=== PATIENT | female | born 1965 | race Caucasian/White ===

== ENCOUNTER → 2019-02-01 09:06 | Outpatient (CLI) | payer MEDICARE, MEDICAID, SELFPAY ==
--- NOTE | 2019-02-01 09:14 | XR_ITS ---
XR knee LT 4V HISTORY: Pain ITS.REASON: 4 views WB ORDERING PHYSICIAN: Carlene Jacobo MD PATIENT AGE: 53 years COMPARISON: 12/24/2018 FINDINGS: No fracture or dislocation. No lytic or blastic change. Normal mineralization. No significant arthritic changes evident. No other significant findings. There is some mild prominence of the bony trabecular pattern of the patella. This is nonspecific and not significant change. IMPRESSION: No acute finding with no significant change
== END ==
PROVIDERS: PCP Family Medicine; Visit Provider Orthopaedic Surgery
DX: M25.562 Pain in left knee (principal)
CPT/HCPCS: 73564

== ENCOUNTER 2019-02-02 13:56 | Emergency (ER) | payer MEDICARE, MEDICAID, SELFPAY ==
[2019-02-02 14:06] VITALS: BP 141/89; PULSE 86; RESP 15; TEMP 37.6; O2SAT 100; BMI 48.2
--- NOTE | 2019-02-02 14:10 | CT_ITS ---
CT abdomen pelvis w con CLINICAL INDICATION: Nausea, vomiting, diarrhea with abdominal pain ITS.REASON: abd pain ORDERING PHYSICIAN: Fina Parada MD PATIENT AGE: 53 years COMPARISON: 11/03/2018 TECHNIQUE: Axial images obtained with sagittal and coronal reformats. All CT scans at the facility use one or more dose reduction, viz: automated exposure control, ma/kV adjustment per patient size (including targeted exams where dose is matched to indication, i.e. head), or iterative reconstruction technique. PROCEDURE: Oral Contrast: None IV Contrast: 75 mL's Optiray 350. FINDINGS: Lower thorax: No acute finding Postcholecystectomy changes. Hepatic steatosis. Spleen, adrenal glands, pancreas, and kidneys show no acute finding. There are a few small peripancreatic lymph nodes and periportal lymph nodes which may be slightly more prominent. Small retroperitoneal nodes are also present not significantly changed. It is a 2 cm left renal cyst. No intestinal obstruction or free air. There is fluid-filled cecum and ascending colon. There is mild amount of fluid in the ilium with some mild mucosal thickening of the distal aspect of the ilium suggesting enterocolitis. No evidence of diverticulitis. No acute bony anomalies. IMPRESSION: 1. Suspect enterocolitis 2. Small. Pancreatic and periportal lymph nodes very slightly more prominent. Continued follow-up recommended
[2019-02-02 14:20] LABS: Basophils # 0.1 K/mm3 (0-0.2); Basophils % 0.7 % (0.1-2.0); Eosinophils # 0.4 K/mm3 (0.0-0.4); Eosinophils % 4.2 % (0.1-12.0); Hematocrit 44.4 % (37.0-47.0); Hemoglobin 15.1 g/dL (12.2-16.2); Lymphocytes # 3.3 K/mm3 (0.7-4.5); Lymphocytes % 37.3 % (10-50); Mean Corpuscular HGB Conc 34.1 g/dL (31.8-35.4); Mean Corpuscular Hemoglobin 29.7 pg (27.0-31.2); Mean Corpuscular Volume 87.3 fl (81-99); Mean Platelet Volume 8.3 fl (7.4-10.4); Monocytes # 0.5 K/mm3 (0.1-1.0); Monocytes % 5.3 % (1.7-9.3); Neutrophils # 4.7 K/mm3 (1.8-7.8); Neutrophils % 52.5 % (37.0-80.0); Platelet Count 242 K/mm3 (142-424); Red Blood Count 5.09 M/mm3 (4.20-5.40); Red Cell Distribution Width 12.8 % (11.5-17.5)
[2019-02-02 14:31] LABS: Alanine Aminotransferase 32 U/L (12-78); Albumin Level 3.7 gm/dL (3.4-5.0); Albumin/Globulin Ratio 0.8 (1.1-1.8); Alkaline Phosphatase 126 U/L (46-116); Amylase 36 U/L (25-115); Anion Gap 17.4 mEq/L (5-15); Aspartate Amino Transferase 21 U/L (15-37); Bilirubin,Total 0.4 mg/dL (0.2-1.0); Blood Urea Nitrogen 6 mg/dL (7-18); Calcium 9.6 mg/dL (8.5-10.1); Carbon Dioxide 24 mmol/L (21.0-32.0); Chloride 98 mmol/L (98-107); Creatinine Clearance Estimated 55 mL/min (50-200); Creatinine,Serum 1.04 mg/dL (0.55-1.02); Estimated Glomerular Filt Rate 56 ml/min (>60); GFR (African American) 67 ML/MIN (>60); Globulin 4.4 gm/dl (1.3-3.2); Glucose 370 mg/dL (74-106); Lipase 178 u/L (73-393); Magnesium 1.5 mg/dL (1.4-2.2); Potassium 4.4 mmoL/L (3.5-5.1); Sodium 135 mmol/L (136-145); Total Protein,Serum 8.1 gm/dL (6.4-8.2); Troponin I < 0.02 ng/ml (0.00-0.06)
--- NOTE | 2019-02-02 14:45 | HMH.EDNVD ---
ED Disposition Clinical Impression: Nausea and vomiting, Dehydration, Weakness, Hypertension, Diabetes, Tobacco abuse disorder, Uncontrolled diabetes mellitus Disposition: Home, Self-Care Condition on Discharge: Fair Instructions: DI for Diarrhea and Traveler's Diarrhea -- Adult, DI for Diarrhea and Traveler's Diarrhea -- Child, DI for Nausea -- Adult, DI for Nausea -- Child Additional Instructions: 1- zofran as needed. 2- drink plenty of gotrade today. 3- BRAT diet tomorrow. 4- follow up with pcp on Monday02/04/19. 5- to return if not better or any new symptoms. Prescriptions: Ondansetron [Zofran 4mg ODT] 4 mg PO Q8HP PRN #6 tab.rapdis PRN Reason: Nausea Referrals: Yue Mix [Primary Care Provider] - - Critical Care Critical Care Time: No Attestation: On 02/02/19, the high probability of a clinically significant, sudden or life threatening deterioration of the following system(s) required my full and direct attention, intervention and personal management. The time I documented below is in addition to time spent performing reported procedures but includes the following listed in this critical care notation. Medical Decision Making - [place] Inquiry Pt receiving controlled substance: No [place] was queried for this patient: No Vital Signs: 02/02/19 14:06 02/02/19 14:57 02/02/19 15:53 Temperature 99.7 F H Temperature Source Oral Pulse Rate [Right Brachial] 86 82 84 Respiratory Rate 15 Blood Pressure [Right Arm] 141/89 H 127/82 131/79 Blood Pressure Mean [Right Arm] 106 97 96 Blood Pressure Source [Right Arm] Automatic Cuff Blood Pressure Position [Right Arm] Sitting 02 Sat by Pulse Oximetry 100 95 97 Oxygen Delivery Method Room Air - Lab Data Lab Results 02/02/19 14:06: WBC 9.0, RBC 5.09, Hgb 15.1, Hct 44.4, MCV 87.3, MCH 29.7, MCHC 34.1, RDW 12.8, Plt Count 242, MPV 8.3, Neut % (Auto) 52.5, Lymph % (Auto) 37.3, [place] % (Auto) 5.3, Eos % (Auto) 4.2, Baso % (Auto) 0.7, Neut # (Auto) 4.7, Lymph # (Auto) 3.3, [place] # (Auto) 0.5, Eos # (Auto) 0.4, Baso # (Auto) 0.1 02/02/19 14:06: Sodium 135 L, Potassium 4.4, Chloride 98, Carbon Dioxide 24, Anion Gap 17.4 H, BUN 6 L, Creatinine 1.04 H, Estimated Creat Clear 55, Estimated GFR 56 L, Est GFR ( Amer) 67, Glucose 370 H, Calcium 9.6, Magnesium 1.5, Total Bilirubin 0.4, AST 21, ALT 32, Alkaline Phosphatase 126 H, Troponin I < 0.02, Total Protein 8.1, Albumin 3.7, Globulin 4.4 H, Albumin/Globulin Ratio 0.8 L, Amylase 36, Lipase 178 02/02/19 14:06: Magnesium 1.5 Result diagrams: 02/02/19 14:06 02/02/19 14:06 Orders (Tests/Meds): ED MEDICATIONS Generic Name Dose Route Start Last Admin Trade Name Freq PRN Reason Stop Dose Admin Insulin Human Regular 5 unit 02/02/19 16:18 Humulin R Insulin 100 Units/Ml 10ml Vial SQ 02/02/19 16:19 ONCE ONE Discontinued Medications Generic Name Dose Route Start Last Admin Trade Name Freq PRN Reason Stop Dose Admin Famotidine 20 mg 02/02/19 14:44 02/02/19 15:03 Pepcid 20mg/2ml Vial IV 02/02/19 14:45 20 mg ONCE ONE Administration Sodium Chloride 1,000 mls @ 999 mls/hr 02/02/19 15:15 02/02/19 15:42 Sod Chlor 0.9% 1000ml Bag IV 02/02/19 16:15 999 mls/hr .Q1H1M [place] Administration Ioversol 75 ml 02/02/19 15:21 02/02/19 15:22 Rad-Optiray 350 100ml Vial IV 02/02/19 15:22 75 ml ONCE ONE Administration Protocol Morphine Sulfate 2 mg 02/02/19 14:44 02/02/19 15:03 Morphine 2mg/Ml Syringe IV 02/02/19 14:45 2 mg ONCE ONE Administration Ondansetron HCl 4 mg 02/02/19 14:44 06/15/19 15:03 Zofran 4mg/2ml Vial IV 02/02/19 14:45 4 mg ONCE ONE Administration Sodium Chloride 10 ml 02/02/19 15:21 02/02/19 15:22 Rad-Saline Flush 10ml Syringe IV 02/02/19 15:22 10 ml ONCE ONE Administration ORDERS Category Date Time Status Urinalysis and Microscopic Stat Lab 02/02/19 14:10 Ordered - CT Data CT Scan: [place]
--- NOTE | 2019-02-02 14:48 | ED_ITS ---
ED Disposition Clinical Impression: Nausea and vomiting, Dehydration, Weakness, Hypertension, Diabetes, Tobacco abuse disorder, Uncontrolled diabetes mellitus Disposition: Home, Self-Care Condition on Discharge: Fair Instructions: DI for Diarrhea and Traveler's Diarrhea -- Adult, DI for Diarrhea and Traveler's Diarrhea -- Child, DI for Nausea -- Adult, DI for Nausea -- Child Additional Instructions: 1- zofran as needed. 2- drink plenty of gotrade today. 3- BRAT diet tomorrow. 4- follow up with pcp on Monday02/04/19. 5- to return if not better or any new symptoms. Prescriptions: Ondansetron [Zofran 4mg ODT] 4 mg PO Q8HP PRN #6 tab.rapdis PRN Reason: Nausea Referrals: Yue Mix [Primary Care Provider] - - Critical Care Critical Care Time: No Attestation: On 02/02/19, the high probability of a clinically significant, sudden or life threatening deterioration of the following system(s) required my full and direct attention, intervention and personal management. The time I documented below is in addition to time spent performing reported procedures but includes the following listed in this critical care notation. Medical Decision Making - [place] Inquiry Pt receiving controlled substance: No [place] was queried for this patient: No Vital Signs: 02/02/19 14:06 02/02/19 14:57 02/02/19 15:53 Temperature 99.7 F H Temperature Source Oral Pulse Rate [Right Brachial] 86 82 84 Respiratory Rate 15 Blood Pressure [Right Arm] 141/89 H 127/82 131/79 Blood Pressure Mean [Right Arm] 106 97 96 Blood Pressure Source [Right Arm] Automatic Cuff Blood Pressure Position [Right Arm] Sitting 02 Sat by Pulse Oximetry 100 95 97 Oxygen Delivery Method Room Air - Lab Data Lab Results 02/02/19 14:06: WBC 9.0, RBC 5.09, Hgb 15.1, Hct 44.4, MCV 87.3, MCH 29.7, MCHC 34.1, RDW 12.8, Plt Count 242, MPV 8.3, Neut % (Auto) 52.5, Lymph % (Auto) 37.3, [place] % (Auto) 5.3, Eos % (Auto) 4.2, Baso % (Auto) 0.7, Neut # (Auto) 4.7, Lymph # (Auto) 3.3, [place] # (Auto) 0.5, Eos # (Auto) 0.4, Baso # (Auto) 0.1 02/02/19 14:06: Sodium 135 L, Potassium 4.4, Chloride 98, Carbon Dioxide 24, Anion Gap 17.4 H, BUN 6 L, Creatinine 1.04 H, Estimated Creat Clear 55, Estimated GFR 56 L, Est GFR ( Amer) 67, Glucose 370 H, Calcium 9.6, Magnesium 1.5, Total Bilirubin 0.4, AST 21, ALT 32, Alkaline Phosphatase 126 H, Troponin I < 0.02, Total Protein 8.1, Albumin 3.7, Globulin 4.4 H, Albumin/Globulin Ratio 0.8 L, Amylase 36, Lipase 178 02/02/19 14:06: Magnesium 1.5 Result diagrams: 02/02/19 14:06 02/02/19 14:06 Orders (Tests/Meds): ED MEDICATIONS Generic Name Dose Route Start Last Admin Trade Name Freq PRN Reason Stop Dose Admin Insulin Human Regular 5 unit 02/02/19 16:18 Humulin R Insulin 100 Units/Ml 10ml Vial SQ 02/02/19 16:19 ONCE ONE Discontinued Medications Generic Name Dose Route Start Last Admin Trade Name Freq PRN Reason Stop Dose Admin Famotidine 20 mg 02/02/19 14:44 02/02/19 15:03 Pepcid 20mg/2ml Vial IV 02/02/19 14:45 20 mg ONCE ONE Administration Sodium Chloride 1,000 mls @ 999 mls/hr 02/02/19 15:15 02/02/19 15:42 Sod Chlor 0.
[2019-02-02 14:57] VITALS: BP 127/82; PULSE 82; O2SAT 95
[2019-02-02 15:18] LABS: Magnesium 1.5 mg/dL (1.4-2.2)
[2019-02-02 15:53] VITALS: BP 131/79; PULSE 84; O2SAT 97
[2019-02-02 16:25] VITALS: BP 110/73; PULSE 84; O2SAT 96
[2019-02-02 16:56] VITALS: BP 140/75; PULSE 84; RESP 17; TEMP 36.8; O2SAT 97
== END 2019-02-02 16:57 | disposition home or self-care (01) ==
PROVIDERS: Emergency Provider Emergency Medicine; PCP Family Medicine
DX: E86.0 Dehydration (principal); R11.2 Nausea with vomiting, unspecified; I10 Essential (primary) hypertension; E11.65 Type 2 diabetes mellitus with hyperglycemia; Z79.84 Long term (current) use of oral hypoglycemic drugs; I25.10 Atherosclerotic heart disease of native coronary artery without angina pectoris; K21.9 Gastro-esophageal reflux disease without esophagitis; R01.1 Cardiac murmur, unspecified; E78.5 Hyperlipidemia, unspecified
CPT/HCPCS: 74177; 80053; 82150; 83690; 83735; 84484; 85025; 93005; 96365; 96375; 99283; J2405; Q9967

== ENCOUNTER 2020-08-27 18:47 | Emergency (ER) | payer MEDICARE, MEDICAID, SELFPAY ==
[2020-08-27 18:50] VITALS: BP 118/71; PULSE 81; RESP 17; TEMP 36.9; O2SAT 97; BMI 31.9
--- NOTE | 2020-08-27 19:43 | HMH.EDGENADL ---
ED Disposition Condition on Discharge: Good - Critical Care Critical Care Time: No <RamonCristopher cross - Last Filed: 08/27/20 20:03> <Duran Arguello - Last Filed: 08/27/20 21:49> Clinical Impression: Cervical dysphagia, Hoarseness, S/P thyroidectomy Disposition: Home, Self-Care Instructions: DI for Acute Pain -- Adult Additional Instructions: will see ent in am Referrals: PCP,No [Non-Staff] - Attestation: On 08/27/20, the high probability of a clinically significant, sudden or life threatening deterioration of the following system(s) required my full and direct attention, intervention and personal management. The time I documented below is in addition to time spent performing reported procedures but includes the following listed in this critical care notation. Medical Decision Making - [place] Inquiry Pt receiving controlled substance: No <Cristopher Sanchez - Last Filed: 08/27/20 20:03> - Lab Data Lab results reviewed: Yes: I reviewed the patient's lab results. Result diagrams: 08/27/20 20:02 08/27/20 20:02 - CT Data CT Scan: Other (neck) Time Received: 21:[address] Reviewed: Yes: I have viewed the radiologist's interpretation Preliminary Findings: Abnormal (see report ) <Duran Arguello - Last Filed: 08/27/20 21:49> Vital Signs: 08/27/20 18:50 Temperature 98.4 F Temperature Source Oral Pulse Rate [Left Radial] 81 Respiratory Rate 17 Blood Pressure [Right Arm] 118/71 Blood Pressure Mean [Right Arm] 86 Blood Pressure Source [Right Arm] Automatic Cuff Blood Pressure Position [Right Arm] Sitting 02 Sat by Pulse Oximetry 97 Oxygen Delivery Method Room Air - Lab Data Lab Results 08/27/20 20:02: WBC 9.6, RBC 5.30, Hgb 14.9, Hct 46.5, MCV 87.7, MCH 28.1, MCHC 32.1, RDW 15.5, Plt Count 193, MPV 9.2, Neut % (Auto) 52.8, Lymph % (Auto) 37.6, [place] % (Auto) 6.0, Eos % (Auto) 2.4, Baso % (Auto) 1.2, Neut # (Auto) 5.1, Lymph # (Auto) 3.6, [place] # (Auto) 0.6, Eos # (Auto) 0.2, Baso # (Auto) 0.1 08/27/20 20:02: Sodium 141, Potassium 3.7, Chloride 102, Carbon Dioxide 31 H, Anion Gap 11.7, BUN 12, Creatinine 0.80, Estimated Creat Clear 108, Estimated GFR 75, Est GFR ( Amer) 91, Glucose 175 H, Calcium 10.5 H 08/27/20 20:02: ESR 23 08/27/20 20:02: TSH 0.96, Thyroxine (T4) 8.4 Orders (Tests/Meds): ED MEDICATIONS Generic Name Dose Route Start Last Admin Trade Name Freq PRN Reason Stop Dose Admin Ceftriaxone Sodium 1 gm/ 50 mls @ 100 mls/hr 08/27/20 21:35 08/27/20 21:37 Sodium Chloride IV 08/27/20 22:04 100 mls/hr ONCE ONE Administration Protocol Discontinued Medications Generic Name Dose Route Start Last Admin Trade Name Freq PRN Reason Stop Dose Admin Iopamidol 75 ml 08/27/20 21:19 08/27/20 21:20 Iopamidol-370 (76%);100ml Bottle IV 08/27/20 21:20 75 ml ONCE ONE Administration Methylprednisolone Sodium Succinate 125 mg 08/27/20 21:35 08/27/20 21:37 Methylprednisolone Sod Succ 125mg Vial IV 08/27/20 21:36 125 mg ONCE ONE Administration Sodium Chloride 10 ml 08/27/20 21:19 08/27/20 21:20 Sodium Chloride 0.9% 10ml Syr (Rad Only) IV 08/27/20 21:20 10 ml ONCE ONE Administration ORDERS Category Date Time Status CT soft tissue neck w con Stat Cat Scan 08/27/20 20:02 Taken Medical Decision Narrative: 8:00 PM: At shift change, I have discussed the patient with Dr. Arguello, who will assume care of the patient at this time. I have discussed all clinical information including history, physical and diagnostic study results. Preliminary diagnoses based on information available at this point have been recorded by me. Controlled substance administration and critical care statement are also preliminary, as of the time of handoff. (Cristopher Sanchez) has appt in am with ent and will send copies of xrays (Duran Arguello) General Adult HPI - General Mode of Arrival: Ambulatory Limitations: No Limitations Description of Symptoms (Recal
--- NOTE | 2020-08-27 20:02 | CT_ITS ---
PROCEDURE: CT SOFT TISSUE NECK W CON CLINICAL HISTORY: cervical dysphagia and hoarseness for 6 mo COMPARISON: No exams were available for comparison TECHNIQUE: Oral Contrast: None IV Contrast: 75 mL Isovue 370 Axial images obtained with sagittal and coronal reformats. All CT scans at the facility use one or more dose reduction, viz: automated exposure control, ma/kV adjustment per patient size (including targeted exams where dose is matched to indication, i.e. head), or iterative reconstruction technique. FINDINGS: No cervical mass or adenopathy. No abnormal fluid collection. Status post left-sided thyroidectomy. The epiglottis and glottic region have an unremarkable appearance as does the nasopharyngeal area and pharynx. Lung apices are clear. There has been prior anterior cervical disc fusion at C5-C6. There are mild atheromatous changes of the right carotid bulb and [id number] atheromatous changes of the left carotid bulb with moderate stenosis on the left. Lung apices are clear with mild centrilobular emphysematous change. IMPRESSION: 1. Status post left thyroidectomy 2. 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 3. Status post anterior cervical disc fusion C5-C6 Dictated by: Daniel Fox MD 08/28/2020 06:31 Daniel Fox MD in [facility] 08/28/2020 06:31
[2020-08-27 20:10] LABS: Basophils # 0.1 K/mm3 (0-0.2); Basophils % 1.2 % (0.1-2.0); Eosinophils # 0.2 K/mm3 (0.0-0.4); Eosinophils % 2.4 % (0.1-12.0); Hematocrit 46.5 % (37.0-47.0); Hemoglobin 14.9 g/dL (12.2-16.2); Lymphocytes # 3.6 K/mm3 (0.7-4.5); Lymphocytes % 37.6 % (10-50); Mean Corpuscular HGB Conc 32.1 g/dL (31.8-35.4); Mean Corpuscular Hemoglobin 28.1 pg (27.0-31.2); Mean Corpuscular Volume 87.7 fl (81-99); Mean Platelet Volume 9.2 fl (7.4-10.4); Monocytes # 0.6 K/mm3 (0.1-1.0); Neutrophils # 5.1 K/mm3 (1.8-7.8); Neutrophils % 52.8 % (37.0-80.0); Platelet Count 193 K/mm3 (142-424); Red Cell Distribution Width 15.5 % (11.5-17.5); White Blood Count 9.6 K/mm3 (4.8-10.8)
[2020-08-27 20:12] LABS: Chloride 102 mmol/L (98-107); Potassium 3.7 mmoL/L (3.5-5.1); Sodium 141 mmol/L (136-145)
[2020-08-27 20:15] LABS: Anion Gap 11.7 mEq/L (5-15); Blood Urea Nitrogen 12 mg/dl (7-17); Carbon Dioxide 31 mmol/L (22.0-30.0); Creatinine Clearance Estimated 108 mL/min (50-200); Estimated Glomerular Filt Rate 75 ml/min (>60); GFR (African American) 91 ML/MIN (>60)
[2020-08-27 20:16] LABS: Calcium 10.5 mg/dl (8.4-10.2); Glucose 175 mg/dl (74-100)
[2020-08-27 20:49] LABS: T4 (Thyroxine) 8.4 ug/dl (5.53-11.0)
[2020-08-27 20:56] LABS: Erythrocyte Sedimentation Rate 23 mm/hr (0-30)
[2020-08-27 21:02] LABS: Thyroid Stimulating Hormone 0.96 uIU/mL (0.465-4.68)
[2020-08-27 21:54] VITALS: BP 122/68; PULSE 75; RESP 16; TEMP 36.7; O2SAT 97
== END 2020-08-27 21:56 | disposition home or self-care (01) ==
PROVIDERS: Emergency Medicine; Emergency Provider Emergency Medicine; PCP Family Medicine
DX: R13.19 Other dysphagia (principal); I25.10 Atherosclerotic heart disease of native coronary artery without angina pectoris; K21.9 Gastro-esophageal reflux disease without esophagitis; E78.5 Hyperlipidemia, unspecified; I10 Essential (primary) hypertension; M79.7 Fibromyalgia; F17.210 Nicotine dependence, cigarettes, uncomplicated; J44.9 Chronic obstructive pulmonary disease, unspecified; E11.9 Type 2 diabetes mellitus without complications; Z79.899 Other long term (current) drug therapy; Z88.8 Allergy status to other drugs, medicaments and biological substances
CPT/HCPCS: 70491; 80048; 84436; 84443; 85025; 85651; 96374; 96375; 99282; Q9967

== ENCOUNTER 2020-09-21 13:50 | Emergency (ER) | payer MEDICARE, MEDICAID, SELFPAY ==
--- NOTE | 2020-09-21 13:47 | ECG_ITS ---
APPROVED REPORT Exam: Resting ECG HR:93 bpm ECG Measurements Heart Rate 93 AXES NV 152 P 76 QRSd 76 QRS 46 QT 362 T 44 QTc 450 Conclusion Normal sinus rhythm Normal ECG Electronically signed by : Juan J Wynn, 09/22/2020 21:09:21
[2020-09-21 13:50] VITALS: BP 131/72; PULSE 92; RESP 20; TEMP 37.3; O2SAT 96; BMI 31.7
[2020-09-21 13:51] VITALS: BMI 31.7
--- NOTE | 2020-09-21 13:51 | XR_ITS ---
PROCEDURE: XR CHEST PORTABLE CLINICAL HISTORY: chest pain COMPARISON: CR CXR CHEST(2 VIEWS-NOT PORTABLE) from 11/05/2016 CR [id number] XR chest portable from 12/04/2017 FINDINGS: The cardiomediastinal silhouette and pulmonary vascularity are within normal limits. The lungs are clear without infiltrates, suspicious nodules, or pleural effusions. A bone plate present in the lower cervical spine IMPRESSION: No acute findings. Dictated by: Daniel Fox MD 09/21/2020 14:24 Daniel Fox MD in [facility] 09/21/2020 14:24
[2020-09-21 14:09] LABS: Chloride 97 mmol/L (98-107); Sodium 137 mmol/L (136-145)
[2020-09-21 14:10] LABS: Potassium 3.8 mmoL/L (3.5-5.1)
[2020-09-21 14:13] LABS: Anion Gap 13.8 mEq/L (5-15); Blood Urea Nitrogen 13 mg/dl (7-17); Calcium 10.3 mg/dl (8.4-10.2); Carbon Dioxide 30 mmol/L (22.0-30.0); Creatinine Clearance Estimated 96 mL/min (50-200); Estimated Glomerular Filt Rate 65 ml/min (>60); GFR (African American) 79 ML/MIN (>60); Glucose 293 mg/dl (74-100)
[2020-09-21 14:25] VITALS: BP 131/94; PULSE 94; RESP 18; O2SAT 93
--- NOTE | 2020-09-21 14:27 | HMH.EDCP ---
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 Return to the emergency department for any acute new concerns, persistent shortness of breath. - Critical Care Critical Care Time: No Attestation: On 09/21/20, the high probability of a clinically significant, sudden or life threatening deterioration of the following system(s) required my full and direct attention, intervention and personal management. The time I documented below is in addition to time spent performing reported procedures but includes the following listed in this critical care notation. Medical Decision Making - Medical Records Medical records reviewed: Yes: I reviewed the patient's medical records. - [place] Inquiry Pt receiving controlled substance: No Vital Signs: 09/21/20 13:50 09/21/20 14:25 Temperature 99.1 F Temperature Source Oral Pulse Rate [Left Radial] 92 H 94 H Respiratory Rate 20 18 Blood Pressure [Right Arm] 131/72 131/94 H Blood Pressure Mean [Right Arm] 91 106 Blood Pressure Source [Right Arm] Automatic Cuff Automatic Cuff Blood Pressure Position [Right Arm] Sitting Sitting 02 Sat by Pulse Oximetry 96 93 L Oxygen Delivery Method Room Air Room Air - Lab Data Lab results reviewed: Yes: I reviewed the patient's lab results. Lab Results 09/21/20 13:50: Sodium 137, Potassium 3.8, Chloride 97 L, Carbon Dioxide 30, Anion Gap 13.8, BUN 13, Creatinine 0.90, Estimated Creat Clear 96, Estimated GFR 65, Est GFR ( Amer) 79, Glucose 293 H, Calcium 10.3 H, Troponin I < 0.01 09/21/20 13:50: WBC 10.3, RBC 5.35, Hgb 15.2, Hct 47.3 H, MCV 88.5, MCH 28.4, MCHC 32.1, RDW 15.2, Plt Count 220, MPV 10.2, Neut % (Auto) 61.0, Lymph % (Auto) 31.5, [place] % (Auto) 5.4, Eos % (Auto) 1.3, Baso % (Auto) 0.7, Neut # (Auto) 6.3, Lymph # (Auto) 3.3, [place] # (Auto) 0.6, Eos # (Auto) 0.1, Baso # (Auto) 0.1 Result diagrams: 09/21/20 13:50 09/21/20 13:50 Orders (Tests/Meds): ED MEDICATIONS Discontinued Medications Generic Name Dose Route Start Last Admin Trade Name Elin PRN Reason Stop Dose Admin Aspirin 243 mg 09/21/20 13:52 09/21/20 14:08 Aspirin 81mg Chewable Tablet PO 09/21/20 13:53 243 mg ONCE ONE Administration ORDERS Category Date Time Status Troponin I Q3H Lab 09/21/20 17:00 Ordered Troponin I Q3H Lab 09/21/20 20:00 Ordered - Radiology Data #1 Image(s): Chest Image Reviewed: Yes I reviewed the patient's radiology image Preliminary Findings: Normal/NAD - ECG Data Tracing #1 EKG at 1347 shows normal sinus rhythm with a rate of 93. No acute ST segment elevation or depression. No hyperacute T waves. Normal intervals. EKG interpreted by me. - ZIGGY Score for Non-Stemi Age of Patient: 50-59 years old Heart Rate: 90-109 bpm Systolic Blood Pressure: 120-139 mmhg Serum Creatinine: 0.80-1.19 mg/dl CHF [place] Class: I-No CHF Other Risk Factors: None Non-Stemi Risk Score: 97 Medical Decision Narrative: This is a 54-year-old female with recent cardiac catheter the last several days with no stentable coronary artery disease. Chest x-ray shows no acute process. No pneumothorax, widened mediastinum, florid pulmonary edema or pneumonia. She has had chest pain for 2 days now and still has a negative troponin, very unlikely acute coronary syndrome. She has intermittent chest pain whenever she bends over or stands up, but this seems more likely related to a dyspepsia etiology rather than cardiac or pulmonary, especially in the setting of reassuring vital signs and recent cardiac cath. Currently she is resting comfortably on reevaluation. Advised to follow-up with cardiology within the next 1 to 2 days for reevaluation. Discharged home. Chest Pain HPI - General Chief Complaint: Chest Pain S
[2020-09-21 14:30] VITALS: BP 131/94; PULSE 94; RESP 18; O2SAT 92
[2020-09-21 14:32] LABS: Troponin I < 0.01 ng/ml (0.00-0.034)
[2020-09-21 14:49] LABS: Basophils # 0.1 K/mm3 (0-0.2); Basophils % 0.7 % (0.1-2.0); Eosinophils # 0.1 K/mm3 (0.0-0.4); Eosinophils % 1.3 % (0.1-12.0); Hematocrit 47.3 % (37.0-47.0); Hemoglobin 15.2 g/dL (12.2-16.2); Lymphocytes # 3.3 K/mm3 (0.7-4.5); Lymphocytes % 31.5 % (10-50); Mean Corpuscular HGB Conc 32.1 g/dL (31.8-35.4); Mean Corpuscular Hemoglobin 28.4 pg (27.0-31.2); Mean Corpuscular Volume 88.5 fl (81-99); Mean Platelet Volume 10.2 fl (7.4-10.4); Monocytes # 0.6 K/mm3 (0.1-1.0); Monocytes % 5.4 % (1.7-9.3); Neutrophils # 6.3 K/mm3 (1.8-7.8); Platelet Count 220 K/mm3 (142-424); Red Blood Count 5.35 M/mm3 (4.20-5.40); Red Cell Distribution Width 15.2 % (11.5-17.5); White Blood Count 10.3 K/mm3 (4.8-10.8)
[2020-09-21 15:00] VITALS: BP 123/80; PULSE 94; RESP 18; O2SAT 91
[2020-09-21 15:20] VITALS: BP 123/80; PULSE 94; RESP 20; TEMP 37.3; O2SAT 92
== END 2020-09-21 15:20 | disposition home or self-care (01) ==
PROVIDERS: Emergency Provider Emergency Medicine; PCP Family Medicine
DX: R07.89 Other chest pain (principal); R06.02 Shortness of breath; I10 Essential (primary) hypertension; E78.5 Hyperlipidemia, unspecified; M79.7 Fibromyalgia; F17.210 Nicotine dependence, cigarettes, uncomplicated; J44.9 Chronic obstructive pulmonary disease, unspecified; I25.10 Atherosclerotic heart disease of native coronary artery without angina pectoris; E11.65 Type 2 diabetes mellitus with hyperglycemia; K21.9 Gastro-esophageal reflux disease without esophagitis; Z79.899 Other long term (current) drug therapy
CPT/HCPCS: 71045; 80048; 84484; 85025; 93005; 99283

== ENCOUNTER 2021-02-23 11:50 | Emergency (ER) | payer MEDICARE, MEDICAID, SELFPAY ==
[2021-02-23 12:01] VITALS: BP 111/70; PULSE 76; RESP 18; TEMP 36.7; O2SAT 96; BMI 31.4
--- NOTE | 2021-02-23 12:11 | CT_ITS ---
PROCEDURE: CT ABDOMEN PELVIS W CON CLINICAL INDICATION: constipation, abd bloating COMPARISON: CT ABDPELW CT abdomen pelvis w con from 02/02/2019 TECHNIQUE: IV Contrast: 75ML Isovue 370 Oral Contrast None Axial images obtained with sagittal and coronal reformats. All CT scans at the facility use one or more dose reduction, viz: automated exposure control, ma/kV adjustment per patient size (including targeted exams where dose is matched to indication, i.e. head), or iterative reconstruction technique. FINDINGS: LOWER THORAX: No acute finding ABDOMEN & PELVIS: The liver, spleen, pancreas, adrenal glands, and kidneys show no acute finding. No intestinal obstruction or free air. No evidence of appendicitis or diverticulitis. No pelvic mass, abnormal fluid collection, or focal inflammatory change of the pelvis. No acute bony anomalies. IMPRESSION: Dictated by: Daniel Fox MD 02/23/2021 13:11 Daniel Fox MD in [facility] 02/23/2021 13:11
--- NOTE | 2021-02-23 12:13 | PC.NURSE ---
ER gave verbal order for CT scan for pt
--- NOTE | 2021-02-23 12:27 | HMH.ITSTN ---
at 12:27pm labs were not back. pending for ct abd/pelvis
[2021-02-23 12:34] LABS: Chloride 105 mmol/L (98-107); Sodium 140 mmol/L (136-145)
[2021-02-23 12:35] LABS: Potassium 3.3 mmoL/L (3.5-5.1)
[2021-02-23 12:37] LABS: Alanine Aminotransferase 27 U/L (12-78); Albumin Level 4.4 g/dl (3.5-5.0); Albumin/Globulin Ratio 1.3 (1.1-1.8); Alkaline Phosphatase 91 U/L (38-126); Anion Gap 14.3 mEq/L (5-15); Aspartate Amino Transferase 37 U/L (14-36); Bilirubin,Total 0.5 mg/dl (0.2-1.3); Blood Urea Nitrogen 14 mg/dl (7-17); Calcium 8.8 mg/dl (8.4-10.2); Carbon Dioxide 24 mmol/L (22.0-30.0); Creatinine Clearance Estimated 94 mL/min (50-200); Estimated Glomerular Filt Rate 65 ml/min (>60); GFR (African American) 79 ML/MIN (>60); Globulin 3.5 g/dL (1.3-3.2); Glucose 176 mg/dl (74-100); Total Protein,Serum 7.9 g/dl (6.3-8.2)
--- NOTE | 2021-02-23 13:18 | HMH.EDGENADL ---
ED Disposition Clinical Impression: Chronic constipation Irritable bowel syndrome Qualifiers: Irritable bowel syndrome type: with constipation Qualified Code(s): K58.1 - Irritable bowel syndrome with constipation Disposition: Home, Self-Care Condition on Discharge: Good Additional Instructions: Follow-up with your demo coordinator to get your medications refilled and for further care. Referrals: Provider,Referral, [Primary Care Provider] - - Critical Care Critical Care Time: No Attestation: On 02/23/21, the high probability of a clinically significant, sudden or life threatening deterioration of the following system(s) required my full and direct attention, intervention and personal management. The time I documented below is in addition to time spent performing reported procedures but includes the following listed in this critical care notation. Medical Decision Making - [place] Inquiry Pt receiving controlled substance: No [place] was queried for this patient: Yes Vital Signs: 02/23/21 12:01 Temperature 98.0 F Temperature Source Oral Pulse Rate [Right Radial] 76 Respiratory Rate 18 Blood Pressure [Right Arm] 111/70 Blood Pressure Mean [Right Arm] 83 Blood Pressure Source [Right Arm] Automatic Cuff Blood Pressure Position [Right Arm] Sitting 02 Sat by Pulse Oximetry 96 Oxygen Delivery Method Room Air - Lab Data Lab Results 02/23/21 12:20: Sodium 140, Potassium 3.3 L, Chloride 105, Carbon Dioxide 24, Anion Gap 14.3, BUN 14, Creatinine 0.90, Estimated Creat Clear 94, Estimated GFR 65, Est GFR ( Amer) 79, Glucose 176 H, Calcium 8.8, Total Bilirubin 0.5, AST 37 H, ALT 27, Alkaline Phosphatase 91, Total Protein 7.9, Albumin 4.4, Globulin 3.5 H, Albumin/Globulin Ratio 1.3 02/23/21 12:20: WBC 9.0, RBC 5.06, Hgb 13.3, Hct 41.7, MCV 82.4, MCH 26.3 L, MCHC 31.9, RDW 16.6, Plt Count 170, MPV 9.2, Neut % (Auto) 56.9, Lymph % (Auto) 33.8, [place] % (Auto) 5.8, Eos % (Auto) 2.7, Baso % (Auto) 0.8, Neut # (Auto) 5.1, Lymph # (Auto) 3.0, [place] # (Auto) 0.5, Eos # (Auto) 0.2, Baso # (Auto) 0.1 02/23/21 12:20: Lipase 123 02/23/21 13:28: Urine Color Yellow, Urine Appearance Clear, Urine pH 6.0, Ur Specific [place] <= 1.005, Urine Protein Negative, Urine Glucose (UA) 3+, Urine Ketones Negative, Urine Blood Negative, Urine Nitrate Negative, Urine Bilirubin Negative, Urine Urobilinogen 0.2, Ur Leukocyte Esterase Negative Result diagrams: 02/23/21 12:20 02/23/21 12:20 Orders (Tests/Meds): ED MEDICATIONS Discontinued Medications Generic Name Dose Route Start Last Admin Trade Name Freq PRN Reason Stop Dose Admin Iopamidol 75 ml 02/23/21 13:04 02/23/21 13:05 Iopamidol-370 (76%);100ml Bottle IV 02/23/21 13:05 75 ml ONCE ONE Administration ORDERS Category Date Time Status UA [Urinalysis and Microscopic] Stat Lab 02/23/21 13:28 Results - CT Data CT Scan: Abdomen, Pelvis Time Received: 13:[address] Reviewed: Yes: I discussed the CT results w/the radiologist Findings Narrative: Scattered small lymph nodes in the epigastrium, has had previously in the retroperitoneum. Air-fluid levels questionable enteritis versus early ileus. No distention of bowel. No signs of bowel obstruction. There is not a lot of stool present on the CT scan, no signs of constipation. Medical Decision Narrative: History of Relistor when she is not on opiates. She denies being on opiates, but review of her [facility] report shows that she previously has been on oxycodone. Last prescription oxycodone filled was January 01. No signs of constipation or bowel obstruction on CT. Advised to follow-up with her demo coordinator to get her medications refilled. General Adult HPI - General Chief complaint: PAIN Stated complaint: constipation Time Seen by Provider: 02/23/21 13:18 Mode of Arrival: Ambulatory Limitations: No Limitations Description of Symptoms (Recalled from ER Triage Doc. by RN): pt reports contstipation
[2021-02-23 13:34] LABS: Basophils # 0.1 K/mm3 (0-0.2); Basophils % 0.8 % (0.1-2.0); Eosinophils # 0.2 K/mm3 (0.0-0.4); Eosinophils % 2.7 % (0.1-12.0); Hematocrit 41.7 % (37.0-47.0); Hemoglobin 13.3 g/dL (12.2-16.2); Lipase 123 U/L (23-300); Lymphocytes % 33.8 % (10-50); Mean Corpuscular HGB Conc 31.9 g/dL (31.8-35.4); Mean Corpuscular Hemoglobin 26.3 pg (27.0-31.2); Mean Corpuscular Volume 82.4 fl (81-99); Mean Platelet Volume 9.2 fl (7.4-10.4); Monocytes # 0.5 K/mm3 (0.1-1.0); Monocytes % 5.8 % (1.7-9.3); Neutrophils # 5.1 K/mm3 (1.8-7.8); Neutrophils % 56.9 % (37.0-80.0); Platelet Count 170 K/mm3 (142-424); Red Blood Count 5.06 M/mm3 (4.20-5.40); Red Cell Distribution Width 16.6 % (11.5-17.5)
[2021-02-23 13:37] LABS: Microscopic, Urine URINE MICROSCOPIC (MICROSCOPIC)
[2021-02-23 13:43] LABS: Appearance,Urine CLEAR (Clear); Bilirubin,Urine Negative (Negative); Blood, Urine Negative (Negative); Color,Urine YELLOW (Yellow); Glucose,Urine (UA) 3+ (Negative); Ketones,Urine Negative (Negative); Leukocyte Esterase,Urine Negative (Negative); Nitrate,Urine Negative (Negative); Protein,Urine Negative (Negative); Specific Gravity, Urine <= 1.005 (1.005-1.030); Urobilinogen,Urine 0.2 EU/dl (0.2)
[2021-02-23 13:52] LABS: Squamous Epithelial Cell,Urine Occasional #/hpf (0-5)
[2021-02-23 14:14] VITALS: BP 111/70; PULSE 76; RESP 18; TEMP 36.7; O2SAT 96
== END 2021-02-23 14:14 | disposition home or self-care (01) ==
PROVIDERS: Emergency Provider Emergency Medicine
DX: K59.09 Other constipation (principal); K58.1 Irritable bowel syndrome with constipation; I25.10 Atherosclerotic heart disease of native coronary artery without angina pectoris; E11.9 Type 2 diabetes mellitus without complications; K21.9 Gastro-esophageal reflux disease without esophagitis; E78.5 Hyperlipidemia, unspecified; I10 Essential (primary) hypertension; M79.7 Fibromyalgia
CPT/HCPCS: 74177; 80053; 81001; 83690; 85025; 99284; 99291; Q9967

== ENCOUNTER 2021-04-24 11:10 | Emergency (ER) | payer MEDICARE, MEDICAID, SELFPAY ==
[2021-04-24 12:55] VITALS: BP 136/87; PULSE 106; RESP 18; TEMP 36.8; O2SAT 96; BMI 34.1
--- NOTE | 2021-04-24 13:09 | XR_ITS ---
PROCEDURE INFORMATION: Exam: XR Right Hand Exam date and time: 04/24/2021 1:09 PM Age: 55 years old Clinical indication: Injury or trauma; Fall; Blunt trauma (contusions or hematomas); Hand; Right TECHNIQUE: Imaging protocol: XR Right hand. Views: 3 or more views. COMPARISON: No relevant prior studies available. FINDINGS: Bones/joints: Normal. Soft tissues: Normal. IMPRESSION: No acute findings.
--- NOTE | 2021-04-24 13:09 | XR_ITS ---
PROCEDURE INFORMATION: Exam: XR Right Knee Exam date and time: 04/24/2021 1:09 PM Age: 55 years old Clinical indication: Injury or trauma; Fall; Blunt trauma; Knee; Right TECHNIQUE: Imaging protocol: XR Right knee. Views: 3 views. COMPARISON: CR (KNEE SUNRISE, KNEE, KNEE SUNRISE) 02/01/2019 9:15 AM FINDINGS: Bones/joints: Normal. Soft tissues: Normal. IMPRESSION: No acute findings.
--- NOTE | 2021-04-24 13:15 | HMH.EDUTC ---
[facility] [place] Impression: Sprain of other part of right wrist and hand, initial encounter Knee sprain Qualifiers: Encounter type: initial encounter Involved ligament of knee: unspecified ligament Laterality: right Qualified Code(s): S83.91XA - Sprain of unspecified site of right knee, initial encounter Disposition: Home, Self-Care Condition on Discharge: Good Instructions: How To Perform RICE (Rest, Ice, Compress, Elevate), Ibuprofen Additional Instructions: *weight bearing as tolerated *RICE, Rest the extremity, Ice 15-20 minutes 3-4 times daily, Compress- wear the morteza wrap as discussed as much as possible to help reduce swelling and pain, Elevate the extremity when at rest *Morteza wrap and wrist splint is for support and help control swelling, use it except in the shower. Be sure that is not to tight but not to loose either *Elevate when resting use cane to help you get around *Ibuprofen every 6-8 hours as needed for pain an inflammation. If need something more can take Tylenol in between doses of Ibuprofen to help Immediately follow up with your family doctor for new or worsening of symptoms, or no noticeable improvement over the next 3-5 days Return if needed Follow up with your Family Doctor if no improvement or any worsening of symptoms Referrals: Yue Mattson [Primary Care Provider] - As needed Time of Disposition: 14:11 Medical Decision Making - [place] Inquiry Pt receiving controlled substance: No [place] was queried for this patient: No Vital Signs: 04/24/21 12:55 Temperature 98.2 F Temperature Source Oral Pulse Rate [Right Brachial] 106 H Respiratory Rate 18 Blood Pressure [Right Arm] 136/87 Blood Pressure Mean [Right Arm] 103 Blood Pressure Source [Right Arm] Automatic Cuff Blood Pressure Position [Right Arm] Sitting 02 Sat by Pulse Oximetry 96 Oxygen Delivery Method Room Air - Radiology Data #1 Image(s): Hand Image Reviewed: Yes I have reviewed radiologist's interpretation IMPRESSION: No acute findings #2 Image(s): Knee Image Reviewed: Yes I have reviewed radiologist's interpretation IMPRESSION: No acute finding [facility] [place] - General Stated complaint: a/o 04/22/21 fell righ arm and right knee Time Seen by Provider: 04/24/21 13:15 Mode of Arrival: Ambulatory Source of Information: Patient Limitations: No Limitations Description of Symptoms (Recalled from Triage Doc. by RN): PATIENT FELL ON 04/22 AND INJURED RIGHT HAND AND KNEE HEENT Symptoms (Recalled from RN notes): No Resp Symptoms (Recalled from RN notes): No Skin Symptoms (Recalled from RN notes): No MS Symptoms (Recalled from RN notes): Yes Functional Status (Recalled from RN notes): WNL - History of Present Illness Provider Complaint: Patient states she tripped and fell a couple days ago and hurt her right hand/wrist and right knee States that ever since she has been having pain in her right wrist and some swelling State that she feels like she may have pulled something in the back of her knee that hurts when she walks on it - Related Data Home Medications Medication Instructions Recorded Confirmed furosemide 20 mg tablet 20 mg PO DAILY tab 01/22/18 08/27/20 gabapentin 300 mg capsule 400 mg PO QID 01/22/18 08/27/20 nitroglycerin 0.4 mg sublingual 0.4 mg SUBLINGUAL Q5M PRN 01/22/18 08/27/20 tablet omeprazole 40 mg capsule,delayed 40 mg PO DAILY cap 01/22/18 08/27/20 release paroxetine HCl 20 mg tablet 40 mg PO BID tab 01/22/18 08/27/20 potassium chloride 10 mEq 20 meq PO BID 01/22/18 08/27/20 capsule,extended release trazodone 100 mg tablet 200 mg PO HS tab 01/22/18 08/27/20 Fluticasone/Vilanterol [Breo 1 puff INHALATION DAILY 06/17/18 08/27/20 Ellipta 100-25 Mcg INH] Evolocumab [Repatha Syringe] 140 mg SQ DIRECTED 08/27/20 08/27/20 Insulin Glargine,Hum.rec.anlog 0 units SQ DIRECTED 08/27/20 08/27/20 [Paveluaudrey Vasquez] Insulin Lispro [Humalog Kwikpen 12 unit SQ DAILY
[2021-04-24 14:07] VITALS: BP 136/87; PULSE 106; RESP 18; TEMP 36.8; O2SAT 96
== END 2021-04-24 14:10 | disposition home or self-care (01) ==
PROVIDERS: Emergency Provider Nurse Practitioner; PCP Family Medicine
DX: S83.91XA Sprain of unspecified site of right knee, initial encounter (principal); W19.XXXA Unspecified fall, initial encounter
CPT/HCPCS: 73130; 73562; 99202; G0463

== ENCOUNTER → 2021-11-30 09:40 | Outpatient (POV) | payer MEDICARE, MEDICAID, SELFPAY | PROVIDERS: Visit Provider Dermatology | DX: Z00.00 Encounter for general adult medical examination without abnormal findings (principal) ==

== ENCOUNTER 2021-12-19 10:22 | Emergency (ER) | payer MEDICARE, MEDICAID, SELFPAY ==
[2021-12-19 10:24] VITALS: BP 130/78; PULSE 86; RESP 20; TEMP 36.9; O2SAT 98; BMI 30.4
--- NOTE | 2021-12-19 10:35 | PC.NURSE ---
ED MD at
[2021-12-19 10:54] VITALS: BMI 31.6
[2021-12-19 10:56] LABS: Basophils # 0.2 K/mm3 (0-0.2); Basophils % 2.2 % (0.1-2.0); Eosinophils # 0.2 K/mm3 (0.0-0.4); Eosinophils % 1.8 % (0.1-12.0); Hematocrit 47.3 % (37.0-47.0); Lymphocytes # 2.7 K/mm3 (0.7-4.5); Lymphocytes % 28.9 % (10-50); Mean Corpuscular HGB Conc 33.8 g/dL (31.8-35.4); Mean Corpuscular Hemoglobin 29.4 pg (27.0-31.2); Mean Platelet Volume 8.8 fl (7.4-10.4); Monocytes # 0.5 K/mm3 (0.1-1.0); Monocytes % 5.6 % (1.7-9.3); Neutrophils # 5.7 K/mm3 (1.8-7.8); Neutrophils % 61.4 % (37.0-80.0); Platelet Count 208 K/mm3 (142-424); Red Blood Count 5.43 M/mm3 (4.20-5.40); Red Cell Distribution Width 16.4 % (11.5-17.5); White Blood Count 9.2 K/mm3 (4.8-10.8)
--- NOTE | 2021-12-19 10:58 | HMH.EDGENADL ---
ED Disposition Clinical Impression: Dyspepsia Disposition: Home, Self-Care Condition on Discharge: Good Instructions: DI for Gastroesophageal Reflux Disease (GERD) Prescriptions: Ondansetron [Zofran 4mg ODT] 4 mg PO BIDP PRN #10 tab PRN Reason: Nausea Transmission Status: Pending to [facility] Referrals: Yue Mix [Primary Care Provider] - - Critical Care Critical Care Time: No Attestation: On 12/19/21, the high probability of a clinically significant, sudden or life threatening deterioration of the following system(s) required my full and direct attention, intervention and personal management. The time I documented below is in addition to time spent performing reported procedures but includes the following listed in this critical care notation. Medical Decision Making - Medical Records Medical records reviewed: Yes: I reviewed the patient's medical records. - [place] Inquiry Pt receiving controlled substance: No Vital Signs: 12/19/21 10:24 12/19/21 11:00 12/19/21 11:31 Temperature 98.4 F Temperature Source Oral Pulse Rate 88 86 Pulse Rate [Left Radial] 86 Respiratory Rate 20 Blood Pressure 117/77 128/75 Blood Pressure [Right Arm] 130/78 Blood Pressure Mean [Right Arm] 95 Blood Pressure Source Automatic Cuff Automatic Cuff Blood Pressure Source [Right Arm] Automatic Cuff Blood Pressure Position Sitting Sitting Blood Pressure Position [Right Arm] Sitting 02 Sat by Pulse Oximetry 98 98 99 Oxygen Delivery Method Room Air Room Air Room Air - Lab Data Lab Results 12/19/21 10:45: WBC 9.2, RBC 5.43 H, Hgb 16.0, Hct 47.3 H, MCV 87.0, MCH 29.4, MCHC 33.8, RDW 16.4, Plt Count 208, MPV 8.8, Neut % (Auto) 61.4, Lymph % (Auto) 28.9, [place] % (Auto) 5.6, Eos % (Auto) 1.8, Baso % (Auto) 2.2 H, Neut # (Auto) 5.7, Lymph # (Auto) 2.7, [place] # (Auto) 0.5, Eos # (Auto) 0.2, Baso # (Auto) 0.2 12/19/21 10:45: Sodium 133 L, Potassium 3.1 L, Chloride 96 L, Carbon Dioxide 30, Anion Gap 10.1, BUN 15, Creatinine 0.70, Estimated Creat Clear 112, Estimated GFR 87, Est GFR ( Amer) 105, Glucose 267 H, Calcium 10.8 H, Total Bilirubin 0.7, AST 31, ALT 32, Alkaline Phosphatase 79, Total Protein 7.9, Albumin 4.5, Globulin 3.4 H, Albumin/Globulin Ratio 1.3, Lipase 39 Result diagrams: 12/19/21 10:45 12/19/21 10:45 Orders (Tests/Meds): ED MEDICATIONS Generic Name Dose Route Start Last Admin Trade Name Freq PRN Reason Stop Dose Admin Lactated Ringer's 1,000 mls @ 999 mls/hr 12/19/21 11:00 12/19/21 10:57 Lactated Ringer's 1000 Ml Bag IV 12/19/21 12:00 999 mls/hr .Q1H1M FLACA Administration Discontinued Medications Generic Name Dose Route Start Last Admin Trade Name Freq PRN Reason Stop Dose Admin Belladonna Alkaloids 60 ml 12/19/21 11:32 12/19/21 11:41 Gi Cocktail 60ml Udc PO 12/19/21 11:33 60 ml ONCE ONE Administration Sodium Chloride 1,000 mls @ 999 mls/hr 12/19/21 10:45 12/19/21 10:57 Sod Chlor 0.9% 1000ml Bag IV 12/19/21 11:45 Not Given .Q1H1M FLACA Ondansetron HCl 4 mg 12/19/21 10:38 12/19/21 10:57 Ondansetron 4mg/2ml Vial IV 12/19/21 10:39 4 mg ONCE ONE Administration - Reevaluation(s) Time: 11:48 Reevaluation #1: On reevaluation, the patient is feeling better. She is tolerating oral intake. Repeat abdominal exam is benign. Laboratory is unremarkable. Patient be discharged with short course of antiemetics. Needs follow-up with PCP in 48 hours. Given strict return precautions. Verbalized understanding. Medical Decision Narrative: 56-year-old female presented to the emergency department with some epigastric discomfort and swallowing issues. I do believe the patient's symptoms are consistent with dyspepsia and GERD. Patient is currently tolerating oral intake. No evidence of obstruction. Work-up initiated. General Adult HPI - General Chief complaint: Nausea/Vomiting/Diarrhea Stated complaint: dizzy an
[2021-12-19 11:00] VITALS: BP 117/77; PULSE 88; O2SAT 98
[2021-12-19 11:04] LABS: Alanine Aminotransferase 32 U/L (12-78); Albumin Level 4.5 g/dl (3.5-5.0); Albumin/Globulin Ratio 1.3 (1.1-1.8); Alkaline Phosphatase 79 U/L (38-126); Anion Gap 10.1 mEq/L (5-15); Aspartate Amino Transferase 31 U/L (14-36); Bilirubin,Total 0.7 mg/dl (0.2-1.3); Blood Urea Nitrogen 15 mg/dl (7-17); Calcium 10.8 mg/dl (8.4-10.2); Carbon Dioxide 30 mmol/L (22.0-30.0); Chloride 96 mmol/L (98-107); Creatinine Clearance Estimated 112 mL/min (50-200); Estimated Glomerular Filt Rate 87 ml/min (>60); GFR (African American) 105 ML/MIN (>60); Globulin 3.4 g/dL (1.3-3.2); Glucose 267 mg/dl (74-100); Lipase 39 U/L (23-300); Potassium 3.1 mmoL/L (3.5-5.1); Sodium 133 mmol/L (136-145); Total Protein,Serum 7.9 g/dl (6.3-8.2)
--- NOTE | 2021-12-19 11:29 | PC.NURSE ---
ED MD at for update on POC
[2021-12-19 11:31] VITALS: BP 128/75; PULSE 86; O2SAT 99
[2021-12-19 12:10] VITALS: BP 121/74; PULSE 81; RESP 17; TEMP 36.9; O2SAT 95
== END 2021-12-19 12:10 | disposition home or self-care (01) ==
PROVIDERS: Emergency Provider Emergency Medicine; PCP Family Medicine
DX: R10.13 Epigastric pain (principal); R11.2 Nausea with vomiting, unspecified; R19.7 Diarrhea, unspecified; J02.9 Acute pharyngitis, unspecified; R42 Dizziness and giddiness; E11.9 Type 2 diabetes mellitus without complications; Z79.899 Other long term (current) drug therapy; Z79.4 Long term (current) use of insulin; J45.909 Unspecified asthma, uncomplicated; I50.9 Heart failure, unspecified; J44.9 Chronic obstructive pulmonary disease, unspecified; I25.10 Atherosclerotic heart disease of native coronary artery without angina pectoris; E78.5 Hyperlipidemia, unspecified; I10 Essential (primary) hypertension
CPT/HCPCS: 80053; 83690; 85025; 96365; 96375; 99283; J2405

== ENCOUNTER → 2022-02-22 10:31 | Outpatient (POV) | payer MEDICARE, MEDICAID, SELFPAY | PROVIDERS: Visit Provider Dermatology | DX: Z00.00 Encounter for general adult medical examination without abnormal findings (principal) ==

== ENCOUNTER 2022-04-08 12:59 | Emergency (ER) | payer MEDICARE, MEDICAID, SELFPAY ==
[2022-04-08 13:34] VITALS: BP 127/74; PULSE 84; RESP 17; TEMP 36.9; O2SAT 97; BMI 30.9
--- NOTE | 2022-04-08 13:35 | HMH.EDUTC ---
[facility] [place] Disposition Clinical Impression: Otitis media Qualifiers: Otitis media type: suppurative Chronicity: acute Laterality: bilateral Recurrence: non-recurrent Spontaneous tympanic membrane rupture: without spontaneous rupture Qualified Code(s): H66.003 - Acute suppurative otitis media without spontaneous rupture of ear drum, bilateral Disposition: Home, Self-Care Condition on Discharge: Good Instructions: How to Instill Ear Drops, Middle Ear Infection Additional Instructions: Drink plenty of fluids. Take tylenol or ibuprofen for pain or fever. Take the medications as directed. Follow up with your regular doctor. GO TO THE ER FOR ANY WORSENING SYMPTOMS Prescriptions: Ciprofloxacin HCl/Dexameth [Cipro 0.3%-Dex 0.1% Otic Susp 7.5mL] 2 drops OT BID 7 Days #1 ml [facility]: [facility] methylPREDNISolone [Medrol] 4 mg PO DIRECTED 6 Days #21 packet Transmission Status: [facility] Cefdinir [Omnicef 300mg Capsule] 300 mg PO BID #20 cap Transmission Status[facility] Referrals: Yue Mattson [Primary Care Provider] - Time of Disposition: 13:51 Medical Decision Making - Medical Records Medical records reviewed: No: I reviewed the patient's medical records. - [place] Inquiry Pt receiving controlled substance: No Vital Signs: 04/08/22 13:34 04/08/22 13:56 Temperature 98.4 F 98.4 F Temperature Source Oral Oral Pulse Rate 80 Pulse Rate [Left Radial] 84 Respiratory Rate 17 17 Blood Pressure 121/69 Blood Pressure [Right Arm] 127/74 Blood Pressure Mean [Right Arm] 91 02 Sat by Pulse Oximetry 97 Oxygen Delivery Method Room Air Room Air [facility] [place] HPI - General Stated complaint: pain in ear, swelling Time Seen by Provider: 04/08/22 13:35 - History of Present Illness Provider Complaint: She c/o bilateral ear pain for the past 2 days. She has a history of getting frequent ear infections. - Related Data Home Medications Medication Instructions Recorded Confirmed furosemide 20 mg tablet 20 mg PO DAILY tab 01/22/18 08/27/20 gabapentin 300 mg capsule 400 mg PO QID 01/22/18 08/27/20 nitroglycerin 0.4 mg sublingual 0.4 mg SUBLINGUAL Q5M PRN 01/22/18 08/27/20 tablet omeprazole 40 mg capsule,delayed 40 mg PO DAILY cap 01/22/18 08/27/20 release paroxetine HCl 20 mg tablet 40 mg PO BID tab 01/22/18 08/27/20 potassium chloride 10 mEq 20 meq PO BID 01/22/18 08/27/20 capsule,extended release trazodone 100 mg tablet 200 mg PO HS tab 01/22/18 08/27/20 Fluticasone/Vilanterol [Breo 1 puff INHALATION DAILY 06/17/18 08/27/20 Ellipta 100-25 Mcg INH] Evolocumab [Repatha Syringe] 140 mg SQ DIRECTED 08/27/20 08/27/20 Insulin Glargine,Hum.rec.anlog 0 units SQ DIRECTED 08/27/20 08/27/20 [Aleksandar Vasquez] Insulin Lispro [Humalog Kwikpen 12 unit SQ DAILY 08/27/20 08/27/20 U-100] Rifaximin [Xifaxan 550mg Tablet] 550 mg PO TID 08/27/20 08/27/20 Ropinirole HCl [Requip 1mg tablet] 1 mg PO HS 08/27/20 08/27/20 Vilazodone HCl [Viibryd 10mg 10 mg PO DAILY 08/27/20 08/27/20 Tablet] Previous Rx's Medication Instructions Recorded Ondansetron [Zofran 4mg ODT] 4 mg PO BIDP PRN #10 tab 12/19/21 Cefdinir [Omnicef 300mg Capsule] 300 mg PO BID #20 cap 04/08/22 Ciprofloxacin HCl/Dexameth [Cipro 2 drops OT BID 7 Days #1 ml 04/08/22 0.3%-Dex 0.1% Otic Susp 7.5mL] methylPREDNISolone [Medrol] 4 mg PO DIRECTED 6 Days #21 04/08/22 packet Allergies Allergy/AdvReac Type Severity Reaction Status Date / Time tramadol [TRAMADOL] Allergy Unknown I-RASH Verified 02/01/19 10:17 lisinopril Allergy Rash Verified 02/01/19 10:17 [facility] History - Hepatitis A Screen Attestation statement:: This patient has been screened for Hepatitis A risk factors. I have reviewed the patient's past medical history: Yes Medical History: Reports:: Asthma, Congestive Heart Failure, Chronic Obstructive Pulmona
[2022-04-08 13:56] VITALS: BP 121/69; PULSE 80; RESP 17; TEMP 36.9; O2SAT 97
== END 2022-04-08 13:57 | disposition home or self-care (01) ==
PROVIDERS: Emergency Provider Nurse Practitioner Family; PCP Family Medicine
DX: H66.003 Acute suppurative otitis media without spontaneous rupture of ear drum, bilateral (principal)
CPT/HCPCS: 99212; G0463

== ENCOUNTER 2022-06-15 10:31 | Emergency (ER) | payer MEDICARE, MEDICAID, SELFPAY ==
[2022-06-15] VITALS (9 sets, daily range): BP systolic 108–140; BP diastolic 70–84; PULSE 71–89; RESP 13–18; TEMP 36.7; O2SAT 98–100; BMI 29.1
--- NOTE | 2022-06-15 10:18 | ECG_ITS ---
APPROVED REPORT Exam: Resting ECG HR:83 bpm ECG Measurements Heart Rate 83 AXES NM 170 P -14 QRSd 84 QRS 18 QT 371 T -5 QTc 411 Conclusion SINUS RHYTHM ABNORMAL ECG UNCONFIRMED REPORT Electronically signed by : Juan J Wynn MD 06/16/2022 21:08:50
--- NOTE | 2022-06-15 10:33 | PC.NURSE ---
1030 DR. BULL AT BEDSIDE FOR EVALUATION
--- NOTE | 2022-06-15 10:34 | XR_ITS ---
FINAL REPORT CLINICAL HISTORY: chest pain COMPARISON: September 2020 FINDINGS: The heart size is normal. The mediastinum is within normal limits. There is mild scarring/fibrosis, stable. There is no pleural effusion. There is no pneumothorax. Postoperative changes are seen in the lower cervical spine. IMPRESSION: No acute cardiopulmonary process. Reviewed, Interpreted and Dictated by Bradley Gonzales III, MD Transcribed by Dwight Quezada Authenticated and [facility]
--- NOTE | 2022-06-15 10:40 | HMH.EDGENADL ---
Discharge Plan Disposition Patient Disposition: Home, Self-Care Condition: Fair Prescriptions Prescriptions: No Action gabapentin 800 mg tablet 800 mg PO QID Humulin R U-500 (Conc) Kwikpen 500 unit/mL (3 mL) insulin pen 200 unit SQ DAILY metoprolol succinate 50 mg tablet extended release 24 hr 50 mg PO BID calcitriol 0.5 mcg capsule 1 mcg PO DAILY tizanidine 4 mg capsule 4 mg PO TID PRN Trulance 3 mg tablet 3 mg PO DAILY rosuvastatin 20 mg tablet 20 mg PO DAILY metformin 500 mg tablet extended release 24 hr 500 mg PO DAILY famotidine 40 mg tablet 40 mg PO BID hydrochlorothiazide 25 mg tablet 25 mg PO DAILY Nurtec ODT 75 mg tablet,disintegrating 75 mg PO Q OTHER DAY ciprofloxacin-dexamethasone [Ciprodex] 0.3-0.1 % drops,suspension 4 drp otic (ear) Q12H 7 Days Qty: 7.5 0RF nitroglycerin 0.4 mg tablet, sublingual 0.4 mg SUBLINGUAL Q5M PRN (Reason: Chest Pain) omeprazole 40 mg capsule,delayed release(DR/EC) 40 mg PO DAILY paroxetine HCl 20 mg tablet 40 mg PO BID potassium chloride 10 mEq capsule, extended release 20 meq PO BID trazodone 100 mg tablet 200 mg PO HS ondansetron 4 MG tablet,disintegrating 4 mg PO BIDP PRN (Reason: Nausea) Qty: 10 0RF fluticasone furoate-vilanterol 1 EACH blister with device 1 puff inhalation DAILY ropinirole 1 MG tablet 1 mg PO HS vilazodone 10 MG tablet 10 mg PO DAILY evolocumab 140 MG/ML syringe 140 mg SQ DIRECTED Rx Instructions: every 14 days Referrals Follow up/Referrals: Adam Fried MD [Primary Care Provider] - See instructions Staci Bojorquez MD [Physician] - See instructions (pulmonary nodule) Activity Restrictions/Add. Instructions Additional Instructions/Restrictions: You have been evaluated for chest pain and arm pain. Diagnosed with a pulmonary nodule of the left upper lung. 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 Take Tylenol or Motrin for pain. Okay to take your tizanidine or trazodone for muscle spasm. Return to the emergency department at once for any new or worsening symptoms, chest pain, difficulty breathing, other concerns Clinical Impressions Clinical Impression: Chest pain, Pulmonary nodule Instructions Patient Instructions: DI for Chest Pain, DI for Pulmonary Nodule Discharge ED Provider: Lizzie Shelton Adult HPI General Chief complaint: Chest Pain Stated complaint: chest pain Time Seen by Provider: 06/15/22 10:33 Mode of Arrival: Ambulatory Limitations: No Limitations Description of Symptoms (Recalled from ER Triage Doc. by RN): PT REPORTS CHEST PAIN AND LEFT ARM/SHOULDER PAIN X 4 DAYS. HAS TAKEN NITRO History of Present Illness HPI narrative: 56-year-old male presenting to the emergency department chest pain. Pain started 2 to 3 days ago while she was sitting at home. Is located on the left side of her chest. Feels like an aching, pressure pain. Radiates into her left arm. Arm pain is also dull, worse with motion. Located in the front and back of the shoulder and arm. No numbness, weakness, tingling in her fingers. Pain has been persistent. Nothing seems to make it better or worse. She has been taking her daily aspirin. Took 1 nitroglycerin this morning that helped temporarily. Pain is not described as sharp or ripping. No radiation to the jaw or back. No associated nausea, diaphoresis, shortness of breath. History of CHF. Follows with Dr. Simmons and Dr. Ross in [facility]. Never had cardiac catheterization or heart attack. No known injury or trauma. No repetitive motion of the left arm Related Data Home Medications Medication Instructions Recorded Confirmed nitroglycerin 0.4 mg sublingual 0.4 mg sublingual Q5M PRN Chest 01/22/18 06/08/22 tablet Pain omeprazole 40 mg capsule,delayed 40 mg PO DAILY stomach 01/22/18
[2022-06-15 10:43] LABS: Basophils # 0.1 K/mm3 (0-0.2); Basophils % 1.6 % (0.1-2.0); Eosinophils # 0.1 K/mm3 (0.0-0.4); Eosinophils % 2.1 % (0.1-12.0); Hematocrit 40.9 % (37.0-47.0); Hemoglobin 13.3 g/dL (12.2-16.2); Lymphocytes # 2.1 K/mm3 (0.7-4.5); Lymphocytes % 34.5 % (10-50); Mean Corpuscular HGB Conc 32.5 g/dL (31.8-35.4); Mean Corpuscular Hemoglobin 30.2 pg (27.0-31.2); Mean Corpuscular Volume 93.1 fl (81-99); Mean Platelet Volume 8.8 fl (7.4-10.4); Monocytes # 0.3 K/mm3 (0.1-1.0); Neutrophils # 3.4 K/mm3 (1.8-7.8); Neutrophils % 56.8 % (37.0-80.0); Platelet Count 155 K/mm3 (142-424); Red Cell Distribution Width 15.2 % (11.5-17.5)
[2022-06-15 10:45] LABS: Chloride 104 mmol/L (98-107); Sodium 141 mmol/L (136-145)
[2022-06-15 10:46] LABS: Potassium 3.6 mmoL/L (3.5-5.1)
--- NOTE | 2022-06-15 10:46 | PC.NURSE ---
XR AT BEDSIDE
[2022-06-15 10:48] LABS: Alanine Aminotransferase 25 U/L (12-78); Albumin Level 4.3 g/dl (3.5-5.0); Albumin/Globulin Ratio 1.2 (1.1-1.8); Alkaline Phosphatase 101 U/L (38-126); Anion Gap 11.6 mEq/L (5-15); Aspartate Amino Transferase 40 U/L (14-36); Bilirubin,Total 0.4 mg/dl (0.2-1.3); Blood Urea Nitrogen 11 mg/dl (7-17); Carbon Dioxide 29 mmol/L (22.0-30.0); Creatinine Clearance Estimated 89 mL/min (50-200); Estimated Glomerular Filt Rate 65 ml/min (>60); GFR (African American) 79 ML/MIN (>60); Globulin 3.5 g/dL (1.3-3.2); Total Protein,Serum 7.8 g/dl (6.3-8.2)
[2022-06-15 10:49] LABS: Calcium 8.9 mg/dl (8.4-10.2); Glucose 164 mg/dl (74-100)
--- NOTE | 2022-06-15 11:05 | PC.NURSE ---
1105 ROUNDED ON PT, NO NEEDS AT THIS TIME
[2022-06-15 11:09] LABS: Troponin I < 0.01 ng/ml (0.00-0.034)
--- NOTE | 2022-06-15 11:31 | CT_ITS ---
FINAL REPORT CLINICAL HISTORY: chest pain, radiation to back on the right side FINDINGS: Axial CT images of the chest were obtained with contrast. Coronal reformatted images were also obtained. This study was performed with techniques to keep radiation doses as low as reasonably achievable, (ALARA). Individualized dose reduction techniques using automated exposure control or adjustment of mA and/or KV according to the patient's size were employed. The left lobe of the thyroid is not well seen and may be surgically or congenitally absent. There are multiple mildly enlarged mediastinal lymph nodes that are nonspecific. No axillary mass or adenopathy is identified. There is mild scarring with mild changes of emphysema. A 9 mm ground-glass nodule is seen in the left upper lobe. No localized pulmonary inflammatory process is identified. Limited images of the upper abdomen reveal mild fatty infiltration of the liver. There is a mild irregular hepatic contour that may represent cirrhosis. The spleen is partially imaged but probably enlarged. Postoperative changes are seen in the lower cervical spine. IMPRESSION: 9 mm left upper lobe ground-glass nodule. Recommend 6 month follow-up. Mild irregularity of the hepatic contour may represent cirrhosis. Reviewed, Interpreted and Dictated by Bradley Gonzales III, MD Transcribed by Dwight Quezada Authenticated and [facility]
--- NOTE | 2022-06-15 11:36 | PC.NURSE ---
rounded on pt asked if they needed anything pt stated she would like to have some ice. checked and it was ok for the pt to have some so i went and got her some
--- NOTE | 2022-06-15 12:22 | PC.NURSE ---
PT TALKING ON PHONE, UPDATED ON POC, NO NEEDS AT THIS TIME
--- NOTE | 2022-06-15 13:30 | PC.NURSE ---
REPEAT TROP DRAWN AND SENT TO LAB
[2022-06-15 14:19] LABS: Troponin I < 0.01 ng/ml (0.00-0.034)
== END 2022-06-15 14:30 | disposition home or self-care (01) ==
PROVIDERS: Emergency Provider Emergency Medicine; PCP Family Medicine
DX: R91.1 Solitary pulmonary nodule (principal); R07.9 Chest pain, unspecified; Z79.84 Long term (current) use of oral hypoglycemic drugs; Z79.4 Long term (current) use of insulin; Z79.899 Other long term (current) drug therapy; F32.A Depression, unspecified; Z88.8 Allergy status to other drugs, medicaments and biological substances; K21.9 Gastro-esophageal reflux disease without esophagitis; E11.9 Type 2 diabetes mellitus without complications
CPT/HCPCS: 71045; 71260; 80053; 84484; 85025; 93005; 99285; Q9967

== ENCOUNTER 2022-06-27 14:05 | Emergency (ER) | payer MEDICARE, MEDICAID, SELFPAY ==
--- NOTE | 2022-06-27 14:04 | ECG_ITS ---
APPROVED REPORT Exam: Resting ECG HR:114 bpm ECG Measurements Heart Rate 114 AXES DE 144 P 69 QRSd 80 QRS 21 QT 322 T 48 QTc 390 Conclusion SINUS TACHYCARDIA POSSIBLE LEFT ATRIAL ENLARGEMENT [-0.1mV P-WAVE IN V1/V2] POSSIBLE RIGHT VENTRICULAR CONDUCTION DELAY [RSR (QR) IN V1/V2] ABNORMAL RHYTHM ECG UNCONFIRMED REPORT Electronically signed by : Juan J Wynn MD 06/27/2022 21:38:42
[2022-06-27 14:10] VITALS: BP 171/81; PULSE 110; RESP 24; TEMP 36.8; O2SAT 95; BMI 32.5
--- NOTE | 2022-06-27 14:12 | XR_ITS ---
FINAL REPORT TECHNIQUE: Chest PA & Lateral CLINICAL HISTORY: cp, sob COMPARISON: June 15, 2022 FINDINGS: 2 views of the chest were performed. The heart size is normal. There is increased pulmonary vascular congestion with mild interstitial opacity probably due to acute edema. There is a minimal right pleural effusion. There is no pneumothorax. The bony thorax appears intact. IMPRESSION: New pulmonary vascular congestion and interstitial opacity probably due to edema. Reviewed, Interpreted and Dictated by Shahid Diana MD Transcribed by Dwight Quezada Authenticated and [facility]
--- NOTE | 2022-06-27 14:13 | HMH.EDGENADL ---
Discharge Plan Disposition Patient Disposition: Home, Self-Care Condition: Good Chief Complaint: Chest Pain Prescriptions Prescriptions: No Action gabapentin 800 mg tablet 800 mg PO QID Humulin R U-500 (Conc) Kwikpen 500 unit/mL (3 mL) insulin pen 200 unit SQ DAILY metoprolol succinate 50 mg tablet extended release 24 hr 50 mg PO BID calcitriol 0.5 mcg capsule 1 mcg PO DAILY tizanidine 4 mg capsule 4 mg PO TID PRN Trulance 3 mg tablet 3 mg PO DAILY rosuvastatin 20 mg tablet 20 mg PO DAILY metformin 500 mg tablet extended release 24 hr 500 mg PO DAILY famotidine 40 mg tablet 40 mg PO BID hydrochlorothiazide 25 mg tablet 25 mg PO DAILY Nurtec ODT 75 mg tablet,disintegrating 75 mg PO Q OTHER DAY ciprofloxacin-dexamethasone [Ciprodex] 0.3-0.1 % drops,suspension 4 drp otic (ear) Q12H 7 Days Qty: 7.5 0RF nitroglycerin 0.4 mg tablet, sublingual 0.4 mg SUBLINGUAL Q5M PRN (Reason: Chest Pain) omeprazole 40 mg capsule,delayed release(DR/EC) 40 mg PO DAILY paroxetine HCl 20 mg tablet 40 mg PO BID potassium chloride 10 mEq capsule, extended release 20 meq PO BID trazodone 100 mg tablet 200 mg PO HS ondansetron 4 MG tablet,disintegrating 4 mg PO BIDP PRN (Reason: Nausea) Qty: 10 0RF fluticasone furoate-vilanterol 1 EACH blister with device 1 puff inhalation DAILY ropinirole 1 MG tablet 1 mg PO HS vilazodone 10 MG tablet 10 mg PO DAILY evolocumab 140 MG/ML syringe 140 mg SQ DIRECTED Rx Instructions: every 14 days Referrals Follow up/Referrals: Adam Fried MD [Primary Care Provider] - See instructions Clinical Impressions Clinical Impression: Acute dyspnea, Regular sinus tachycardia, D-dimer, elevated Instructions Patient Instructions: DI for Shortness of Breath Discharge ED Provider: Jose Lim General Adult HPI General Chief complaint: Chest Pain Stated complaint: CHEST PAIN Time Seen by Provider: 06/27/22 14:12 History of Present Illness HPI narrative: 56-year-old female past medical history of tobacco use, poorly controlled type 2 diabetes, hypertension, hyperlipidemia, coronary artery disease. 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 She states ever since the stress test she has had significant difficulty breathing, was noted to be tachycardic, having labored breathing, and put on oxygen at home which does not seem to have helped. She denies nausea, vomiting, diaphoresis, has not had any treatments prior to arrival. Related Data Home Medications Medication Instructions Recorded Confirmed nitroglycerin 0.4 mg sublingual 0.4 mg sublingual Q5M PRN Chest 01/22/18 06/08/22 tablet Pain omeprazole 40 mg capsule,delayed 40 mg PO DAILY stomach 01/22/18 06/08/22 release paroxetine HCl 20 mg tablet 40 mg PO BID mood 01/22/18 06/08/22 potassium chloride 10 mEq 20 meq PO BID Supplement 01/22/18 06/08/22 capsule,extended release trazodone 100 mg tablet 200 mg PO HS sleep 01/22/18 06/08/22 fluticasone furoate 100 1 puff inhalation DAILY Breathing 06/17/18 06/08/22 mcg-vilanterol 25 mcg/dose problems inhalation powder evolocumab 140 mg/mL subcutaneous 140 mg SQ DIRECTED Cholesterol 08/27/20 06/08/22 syringe ropinirole 1 mg tablet 1 mg PO HS Sleep 08/27/20 06/08/22 vilazodone 10 mg tablet 10 mg PO DAILY Depression 08/27/20 06/08/22 calcitriol 0.5 mcg capsule 1 mcg PO DAILY 06/08/22 06/08/22 famotidine 40 mg tablet 40 mg PO BID 06/08/22 06/08/22 gabapentin 800 mg tablet 800 mg PO QID 06/08/22 06/08/22 hydrochlorothiazide 25 mg tablet 25 mg PO DAILY 06/08/22 06/08/22 insulin regular hum U-500 conc 500 200 unit SQ DAILY 06/08/22 06/08/22 unit/mL(3 mL) subcut pen (Humulin R U-500 (Conc) Insulin Kwikpen) metformin 500 mg tablet,extended 500 mg PO DAILY 06/08/22 06/08/22 release 24 hr meto
--- NOTE | 2022-06-27 14:22 | PC.NURSE ---
PT TO XR
--- NOTE | 2022-06-27 14:27 | PC.NURSE ---
PT BACK FROM RADIOLOGY
--- NOTE | 2022-06-27 14:30 | PC.NURSE ---
DR FAJARDO AT BS
--- NOTE | 2022-06-27 14:34 | PC.NURSE ---
ED MD AT BEDSIDE FOR EVALUATION
[2022-06-27 14:42] LABS: Basophils # 0.1 K/mm3 (0-0.2); Basophils % 0.5 % (0.1-2.0); Eosinophils # 0.1 K/mm3 (0.0-0.4); Eosinophils % 0.7 % (0.1-12.0); Hematocrit 42.6 % (37.0-47.0); Hemoglobin 13.5 g/dL (12.2-16.2); Lymphocytes # 1.1 K/mm3 (0.7-4.5); Lymphocytes % 12.1 % (10-50); Mean Corpuscular HGB Conc 31.6 g/dL (31.8-35.4); Mean Corpuscular Hemoglobin 29.3 pg (27.0-31.2); Mean Corpuscular Volume 92.6 fl (81-99); Mean Platelet Volume 9.5 fl (7.4-10.4); Monocytes # 0.5 K/mm3 (0.1-1.0); Monocytes % 5.1 % (1.7-9.3); Neutrophils # 7.6 K/mm3 (1.8-7.8); Neutrophils % 81.6 % (37.0-80.0); Platelet Count 131 K/mm3 (142-424); Red Cell Distribution Width 15.1 % (11.5-17.5); White Blood Count 9.3 K/mm3 (4.8-10.8)
[2022-06-27 14:44] LABS: Anion Gap 17.9 mEq/L (5-15); Blood Urea Nitrogen 15 mg/dl (7-17); Calcium 9.8 mg/dl (8.4-10.2); Carbon Dioxide 27 mmol/L (22.0-30.0); Chloride 99 mmol/L (98-107); Creatinine Clearance Estimated 105 mL/min (50-200); Estimated Glomerular Filt Rate 74 ml/min (>60); GFR (African American) 90 ML/MIN (>60); Glucose 326 mg/dl (74-100); Potassium 4.9 mmoL/L (3.5-5.1); Sodium 139 mmol/L (136-145)
[2022-06-27 14:56] LABS: NT Pro Brain Natriuretic Pep. 569 pg/mL (0-125)
[2022-06-27 14:57] LABS: Troponin I < 0.01 ng/ml (0.00-0.034)
[2022-06-27 15:01] VITALS: BP 138/71; PULSE 106; RESP 18; O2SAT 98
--- NOTE | 2022-06-27 15:05 | PC.NURSE ---
PT ASSISTED TO BR
[2022-06-27 15:31] VITALS: BP 147/73; PULSE 112; RESP 18; O2SAT 95
[2022-06-27 16:01] VITALS: BP 121/87; PULSE 110; RESP 20; O2SAT 98
[2022-06-27 16:27] LABS: D-Dimer > 8.10 ug/mL (0.0-0.5)
--- NOTE | 2022-06-27 16:57 | PC.NURSE ---
PT WANTS TO BE D/C SHE DOES NOT WANT TO STAY FOR A CT SCAN
[2022-06-27 17:00] VITALS: BP 130/75; PULSE 70; RESP 20; TEMP 36.7; O2SAT 97
== END 2022-06-27 17:05 | disposition home or self-care (01) ==
PROVIDERS: Emergency Provider Emergency Medicine; PCP Family Medicine
DX: R06.00 Dyspnea, unspecified (principal); R00.0 Tachycardia, unspecified; R79.1 Abnormal coagulation profile; Z79.84 Long term (current) use of oral hypoglycemic drugs; Z79.4 Long term (current) use of insulin; Z79.899 Other long term (current) drug therapy; E11.9 Type 2 diabetes mellitus without complications; I10 Essential (primary) hypertension; E78.5 Hyperlipidemia, unspecified; I25.10 Atherosclerotic heart disease of native coronary artery without angina pectoris; K21.9 Gastro-esophageal reflux disease without esophagitis; K58.9 Irritable bowel syndrome, unspecified
CPT/HCPCS: 71046; 80048; 83880; 84484; 85025; 85378; 93005; 99284

== ENCOUNTER → 2022-08-03 10:10 | Outpatient (CLI) | payer MEDICARE, MEDICAID, SELFPAY ==
[2022-08-03 10:55] VITALS: PULSE 85; PULSE 89
== END ==
PROVIDERS: PCP Family Medicine; Visit Provider Internal Medicine Pulmonary Disease
DX: R06.09 Other forms of dyspnea (principal)
CPT/HCPCS: 94060; 94618; 94640; 94727; 94729; 94762

== ENCOUNTER → 2022-08-17 10:43 | Outpatient (CLI) | payer MEDICARE, MEDICAID, SELFPAY ==
[2022-08-17 12:11] LABS: Basophils # 0.1 K/mm3 (0-0.2); Basophils % 1.5 % (0.1-2.0); Eosinophils # 0.2 K/mm3 (0.0-0.4); Eosinophils % 2.3 % (0.1-12.0); Hematocrit 41.4 % (37.0-47.0); Lymphocytes # 2.5 K/mm3 (0.7-4.5); Lymphocytes % 36.9 % (10-50); Mean Corpuscular HGB Conc 31.4 g/dL (31.8-35.4); Mean Corpuscular Hemoglobin 28.1 pg (27.0-31.2); Mean Corpuscular Volume 89.5 fl (81-99); Mean Platelet Volume 9.2 fl (7.4-10.4); Monocytes # 0.4 K/mm3 (0.1-1.0); Monocytes % 6.4 % (1.7-9.3); Neutrophils # 3.6 K/mm3 (1.8-7.8); Neutrophils % 52.8 % (37.0-80.0); Platelet Count 174 K/mm3 (142-424); Red Blood Count 4.63 M/mm3 (4.20-5.40); Red Cell Distribution Width 15.3 % (11.5-17.5); White Blood Count 6.8 K/mm3 (4.8-10.8)
[2022-08-17 12:33] LABS: Chloride 97 mmol/L (98-107); Sodium 137 mmol/L (136-145)
[2022-08-17 12:34] LABS: Potassium 4.2 mmoL/L (3.5-5.1)
[2022-08-17 12:36] LABS: Alanine Aminotransferase 16 U/L (12-78); Albumin Level 4.3 g/dl (3.5-5.0); Alkaline Phosphatase 146 U/L (38-126); Anion Gap 11.2 mEq/L (5-15); Aspartate Amino Transferase 27 U/L (14-36); Bilirubin,Direct 0.3 mg/dl (0.0-0.4); Bilirubin,Indirect 0.1 mg/dL (0.0-0.9); Bilirubin,Total 0.4 mg/dl (0.2-1.3); Bilirubin,Unconjugated 0.1 mg/dL (0.0-1.1); Blood Urea Nitrogen 24 mg/dl (7-17); Calcium 9.4 mg/dl (8.4-10.2); Carbon Dioxide 33 mmol/L (22.0-30.0); Cholesterol 161 mg/dl (140-200); Estimated Glomerular Filt Rate 52 ml/min (>60); GFR (African American) 62 ML/MIN (>60); Glucose 224 mg/dl (74-100); Total Protein,Serum 7.6 g/dl (6.3-8.2)
[2022-08-17 12:37] LABS: Chol/HDL Ratio 4.2 (1-3.5); HDL Cholesterol 38 mg/dl (40-60); Magnesium 1.9 mg/dl (1.6-2.3)
[2022-08-17 12:38] LABS: Triglycerides 407 mg/dl (30-150)
[2022-08-17 12:48] LABS: Direct LDL Cholesterol 51.17 mg/dL (100-129)
[2022-08-17 13:03] LABS: Free T4 (Free Thyroxine) 0.73 ng/dl (0.78-2.19)
[2022-08-17 13:06] LABS: Thyroid Stimulating Hormone 1.65 uIU/mL (0.465-4.68)
== END ==
PROVIDERS: PCP Family Medicine; Visit Provider Nurse Practitioner
DX: E78.5 Hyperlipidemia, unspecified (principal); I25.10 Atherosclerotic heart disease of native coronary artery without angina pectoris; I50.9 Heart failure, unspecified; R14.0 Abdominal distension (gaseous); Z72.0 Tobacco use; I11.0 Hypertensive heart disease with heart failure
CPT/HCPCS: 36415; 80048; 80061; 80076; 83735; 84439; 84443; 85025

== ENCOUNTER 2022-08-22 09:17 | Emergency (ER) | payer MEDICARE, MEDICAID, SELFPAY ==
[2022-08-22 09:50] VITALS: BP 109/67; PULSE 84; RESP 18; TEMP 36.6; O2SAT 97; BMI 32.9
--- NOTE | 2022-08-22 10:27 | EXP.UTC ---
Discharge Plan Disposition Patient Disposition: Home, Self-Care Condition: Good Prescriptions Prescriptions: New ofloxacin 0.3 % drops 10 drp otic (ear) BID 14 Days Qty: 10 0RF Rx Instructions: in left ear amoxicillin 500 mg capsule 500 mg PO TID 10 Days Qty: 30 0RF No Action gabapentin 800 mg tablet 800 mg PO QID Humulin R U-500 (Conc) Kwikpen 500 unit/mL (3 mL) insulin pen 200 unit SQ DAILY metoprolol succinate 50 mg tablet extended release 24 hr 50 mg PO BID calcitriol 0.5 mcg capsule 1 mcg PO DAILY tizanidine 4 mg capsule 4 mg PO TID PRN Trulance 3 mg tablet 3 mg PO DAILY rosuvastatin 20 mg tablet 20 mg PO DAILY metformin 500 mg tablet extended release 24 hr 500 mg PO DAILY famotidine 40 mg tablet 40 mg PO BID Nurtec ODT 75 mg tablet,disintegrating 75 mg PO Q OTHER DAY dapagliflozin 10 mg tablet 10 mg PO DAILY albuterol sulfate 90 mcg/actuation HFA aerosol inhaler 2 puff inhalation Q6H PRN estradiol 1 mg/gram (0.1 %) gel in packet 1 packet transdermal DAILY oxycodone-acetaminophen 5-300 mg tablet 1 tab PO TID PRN imipramine HCl 25 mg tablet 25 mg PO HS pantoprazole 20 mg tablet,delayed release (DR/EC) 20 mg PO DAILY ipratropium bromide 21 mcg (0.03 %) spray,non-aerosol 2 spray intranasal TID Rx Instructions: administer into each nostril furosemide 20 mg tablet 20 mg PO BID budesonide 0.5 mg/2 mL suspension for nebulization 0.5 mg inhalation BID ipratropium-albuterol 0.5 mg-3 mg(2.5 mg base)/3 mL solution for nebulization 3 ml inhalation QID PRN (Reason: shortness of breath or wheezing) 90 Days Qty: 270 3RF nitroglycerin 0.4 mg tablet, sublingual 0.4 mg SUBLINGUAL Q5M PRN (Reason: Chest Pain) potassium chloride 10 mEq capsule, extended release 20 meq PO BID aspirin [Adult Low Dose Aspirin] 81 mg tablet,delayed release (DR/EC) 81 mg PO DAILY Anoro Ellipta 62.5-25 mcg/actuation blister with device 1 inh inhalation DAILY 90 Days Qty: 180 3RF spironolactone [Aldactone] 25 mg tablet 25 mg PO DAILY Qty: 30 2RF ropinirole 1 MG tablet 1 mg PO HS evolocumab 140 MG/ML syringe 140 mg SQ DIRECTED Rx Instructions: every 14 days Referrals Follow up/Referrals: Melva Howard DO [Primary Care Provider] - See instructions (Call office for appointment on Monday) Miguel Angel Prasad MD [Physician] - See instructions Gaston Yin MD [Physician] - See instructions Activity Restrictions/Add. Instructions Additional Instructions/Restrictions: Use drops and take medication as prescribed Follow up with your Family Doctor and ENT for further evaluation and treatment Straight to ER if any life threatening symptoms DO not stick anything in your ear Clinical Impressions Clinical Impression: Ear problem Instructions Patient Instructions: Ofloxacin Otic, Amoxicillin Discharge ED Provider: Lindsay Frank [facility] General Stated complaint: LT ear bleeding Mode of Arrival: Ambulatory Source of Information: Patient Limitations: No Limitations Time Seen by Provider: 08/22/22 10:27 Description of Symptoms (Recalled from Triage Doc. by RN): PATIENT C/O BLEEDING FROM LEFT EAR X 4 DAYS HEENT Symptoms (Recalled from RN notes): Yes Resp Symptoms (Recalled from RN notes): No Skin Symptoms (Recalled from RN notes): No MS Symptoms (Recalled from RN notes): No Functional Status (Recalled from RN notes): WNL History of Present Illness Provider Complaint: Patient states that she has been having bleeding in her left ear on and off for a couple of days States that she thinks her tube came out and she has been having pain and bleeding in her left ear for several day and last night she had it again so today she came in to get it checked out Related Data Home Medications Medication Instructions Recorded Confirmed nit
[2022-08-22 10:52] VITALS: BP 109/67; PULSE 84; RESP 18; TEMP 36.6; O2SAT 97
== END 2022-08-22 10:55 | disposition home or self-care (01) ==
PROVIDERS: Emergency Provider Nurse Practitioner; PCP Family Medicine
DX: H93.90 Unspecified disorder of ear, unspecified ear (principal)
CPT/HCPCS: 99212; G0463

== ENCOUNTER → 2022-08-26 07:27 | Outpatient (CLI) | payer MEDICARE, MEDICAID, SELFPAY ==
--- NOTE | 2022-08-26 07:28 | CT_ITS ---
FINAL REPORT CLINICAL HISTORY: abdominal distention FINDINGS: CT ABDOMEN W/CONTRAST PROCEDURE: Axial images were obtained through the abdomen by computed tomography after administration of IV contrast. This study was performed with techniques to keep radiation doses as low as reasonably achievable (ALARA). Individualized dose reduction techniques using automated exposure control or adjustment of mA and/or kV according to the patient's size were employed. ABDOMEN: The lung bases are clear. The heart is normal in size. The gallbladder is surgically absent. There is mild biliary ductal dilatation which is probably related to prior cholecystectomy. The common bile measures 11 mm. There is a subtle nodular contour of the liver raising question of underlying cirrhosis. The spleen is mildly enlarged. Perigastric varices are noted. No adrenal masses are present. The pancreas is normal. A left renal cyst is noted. The aorta is normal in caliber. There is no free fluid or adenopathy. There is fecal impaction of the colon. There is no free fluid. IMPRESSION: 1. Findings suggestive of cirrhosis with mild portal hypertension. 2. Fecal impaction without bowel obstruction. 3. No free fluid. Reviewed, Interpreted and Dictated by Kailee Yeboah MD Transcribed by Chantal Sands Authenticated and . [facility]
== END ==
PROVIDERS: PCP Family Medicine; Visit Provider Nurse Practitioner
DX: R14.0 Abdominal distension (gaseous) (principal)
CPT/HCPCS: 74160; Q9967

== ENCOUNTER → 2022-09-02 13:01 | Outpatient (CLI) | payer MEDICARE, MEDICAID, SELFPAY ==
--- NOTE | 2022-09-02 13:01 | CT_ITS ---
FINAL REPORT TECHNIQUE: Axial images were obtained from skull base to the thoracic inlet by computed tomography. Coronal and sagittal reconstruction process performed. This study was performed with techniques to keep radiation doses as low as reasonably achievable (ALARA). Individualized dose reduction techniques using automated exposure control or adjustment of mA and/or kV according to the patient''s size were employed. CLINICAL HISTORY: blood in left ear canal FINDINGS: There is anterior fusion at C5-6. There is no acute fracture or subluxation. There are [id number] degenerative changes. There is a probable central disc protrusion at C4-5 which indents the thecal sac. The facets are normally aligned. The soft tissues are unremarkable. Limited images of the lung apices are unremarkable. IMPRESSION: Mild to moderate degenerative changes with probable central disc protrusion at C4-5 with indention of the thecal sac. No acute bony abnormality. Reviewed, Interpreted and Dictated by Bradley Gonzales III, MD Transcribed by Madeline Madrigal Authenticated and [facility]
--- NOTE | 2022-09-02 13:01 | CT_ITS ---
FINAL REPORT TECHNIQUE: Multiple axial CT sections were performed from the foramen magnum to the vertex. Coronal reformatted images were also obtained. Precontrast and postcontrast injection images were obtained. This study was performed with technique to keep radiation doses as low as reasonably achievable, (ALARA). Individualized dose reduction techniques using automated exposure control or adjustment of mA and/or kV according to the patient size were employed. CLINICAL HISTORY: rule out stroke COMPARISON: Since 04/25/2017 FINDINGS: The ventricles are normal in size. There is no evidence of hemorrhage. No masses are identified. No extra-axial fluid collection is seen. The sinuses are normal. No osseous abnormality is seen on the bone window images. Postcontrast images demonstrate no abnormal enhancement. IMPRESSION: Unremarkable CT of the head with and without contrast. Reviewed, Interpreted and Dictated by Bradley Gonzales III, MD Transcribed by Madeline Madrigal Authenticated and [facility]
== END ==
PROVIDERS: PCP Otolaryngology; Visit Provider Family Medicine
DX: R29.898 Other symptoms and signs involving the musculoskeletal system (principal); H92.22 Otorrhagia, left ear; R20.0 Anesthesia of skin
CPT/HCPCS: 70470; 72125; Q9967

== ENCOUNTER → 2022-09-06 11:20 | Outpatient (CLI) | payer MEDICARE, MEDICAID, SELFPAY ==
[2022-09-06 13:33] LABS: Vitamin B12 443 pg/mL (239-931)
[2022-09-06 13:35] LABS: Folate 7.18 ng/mL
[2022-09-08 17:05] LABS: Albumin, U 16.4 % (.); Alpha-2-Globulin, U 6.7 % (.); Beta Globulin, U 24.9 % (.); Gamma Globulin, U 51.1 % (.); M-Spike, % Not Observed % (Not Observed)
== END ==
PROVIDERS: PCP Orthopaedic Surgery; Visit Provider Specialist
DX: G62.9 Polyneuropathy, unspecified (principal)
CPT/HCPCS: 36415; 82607; 82746; 84156; 84166

== ENCOUNTER → 2022-09-06 14:18 | Outpatient (CLI) | payer MEDICARE, MEDICAID, SELFPAY | PROVIDERS: PCP Family Medicine; Visit Provider Nurse Practitioner Family | DX: R07.9 Chest pain, unspecified (principal); I48.0 Paroxysmal atrial fibrillation; R14.0 Abdominal distension (gaseous); I10 Essential (primary) hypertension; I50.9 Heart failure, unspecified; I25.10 Atherosclerotic heart disease of native coronary artery without angina pectoris; E78.5 Hyperlipidemia, unspecified; Z72.0 Tobacco use | CPT/HCPCS: 36415; 82607; 82746; 84156; 84166; 93225 ==

== ENCOUNTER → 2022-09-13 11:22 | Outpatient (CLI) | payer MEDICARE, MEDICAID, SELFPAY ==
--- NOTE | 2022-09-13 | CA_ITS ---
APPROVED REPORT Exam: Pharmacologic Technologist: Madeline Nam Ht: 5 ft 3 in Wt: 193 lbs BSA: 1.90 m2 HR: 74 bpm BP: 95/43 mmHg Indications: Chest pain, PaF Medical History Medications: Metoprolol,,,,, Metformin,,,,, Gabapentin,,,,, Pantoprazole,,,,, Ropinirole,,,,, PERCOCET,,,,, Albuterol,,,,, Famotidine,,,,, Tizanidine,,,,, Nitroglycerin,,,,, SpirOnolactone,,,,, RoSUVASTATIN,,,,, Stress Test Details Test: LEXISCAN HR Resting HR: 78 bpm Max Heart Rate (APMHR): 165.776294 bpm Max HR Achieved: 95 bpm Target HR (85% APMHR): 140.443383 bpm % of APMHR: 57.58 Recovery HR: 83 bpm BP Resting BP: 95.0/43.0 mmHg Max BP: 106.0/51.0 mmHg Recovery BP: 106.0/51.0 mmHg ECG Resting ECG: NORMAL SINUS RHYTHM, PAC Clinical Exercise duration: 04:01 min Highest Stage Achieved: Stress ECG Conclusion SYMPTOMS: MILD CHEST PRESSURE, SHORTNESS OF AIR, LIGHT-HEADED ARRHYTHMIAS/ECTOPY: NONE ST-T CHANGES: NO SIGNIFICANT CHANGES CONCLUSION: UNREMARKABLE LEXISCAN STRESS. MYOVIEW IMAGES REPORTED SEPARATELY. Test Summary REST . . . . . . . Resting REST 03:15 . . 78 . 95/ 43 . . Stage 1 . . . . . . . Myoview Injected Stage 1 01:00 . . 85 . . . . Stage 2 01:00 . . 85 . 87/ 34 . . Stage 3 01:00 . . 84 . 89/ 43 . . Stage 4 01:00 . . 85 . 89/ 40 . . Stage 4 01:01 . . 85 . 89/ 40 . Stop exercise at 04:01 RECOVERY 01:00 . . 88 . 94/ 42 . . RECOVERY 02:00 . . 84 . 94/ 42 . . RECOVERY 03:00 . . 83 . 97/ 44 . . RECOVERY 04:00 . . 86 . 97/ 44 . . RECOVERY 05:00 . . 84 . 97/ 44 . . RECOVERY 05:30 . . 85 . 106/ 51 . . Electronically signed by : Lizandro Morrow MD 09/14/2022 07:08:45
--- NOTE | 2022-09-13 11:22 | NM_ITS ---
APPROVED REPORT Exam: Nuclear Stress Test Indication: chest pain..short of breath..palpitations..syncope..fatigue Patient Location: Outpatient Stress Tech: Madeline Nam [place] Tech:SURYA Jimenez RT(R)(N) Ht: 5 ft 3 in Wt: 191 lbs Bra Size: c HR: 78 bpm BP: 95/43 mmHg BSA: 1.90 m2 TID: 1.31 BMI: 33.8 History: chest pain..short of breath..palpitations..syncope..fatigue Procedure: Patient received a 0.4 mg of intravenous Lexiscan, resting heart rate 78 bpm, resting blood pressure 95/43 mmHg, with Lexiscan maximum heart rate achived was 95 bpm which is Less than 85 % of the maximum predicted heart rate and blood pressure was 106/51 mmHg. With Lexiscan, patient denied any complaint of chest pain. pt was unable to lay on her belly for prone images Electrocardiogram Resting electrocardiogram shows sinus rhythm, with Lexiscan there is less than 1.[address] segment depression noted from the baseline EKG. The EKG portion of the Lexiscan is nondiagnostic. Cardiac Stress and Resting SPECT Images: Cardiac Stress and Resting SPECT images were obtained using technetium 99m Myoview 32.2 mCi stress and 10.63 mCi at rest. Gated SPECT for analysis of segmental wall motion and calculation of the ejection fraction also done. Cardiac stress and rest SPECT images show decreased tracer activity in the anteroseptal wall which improves on the resting images is likely secondary to reversible ischemia, there is transient ischemic dilatation of the left ventricle also seen. Computer derived ejection fraction is 60% with no regional wall motion abnormality, right ventricle is normal size and contractility. Conclusion: 1. The EKG portion of the Lexiscan is nondiagnostic. 2. Scintigraphic evidence of reversible ischemia involving the anteroseptal wall, there is transient ischemic dilatation of the left ventricle seen. Computer derived ejection fraction is 60% with no regional wall motion abnormality, right ventricle is normal size and contractility. 3. Abnormal Lexiscan Myoview study. Electronically signed by : Lizandro Morrow MD 09/14/2022 07:15:03
--- NOTE | 2022-09-13 13:47 | HMH.ITSHM ---
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 []TIZANIDINE SPIRONOLACTONE ROSUVASTATIN ROPINIROLE RIVAROXABAN RIMEGEPANT POTASSIUM PLECANATIDE OXYCODONE NITRO METOPROLOL IPRATROPIUM INSULIN IMIPRAMINE GABAPENTIN FUROSEMIDE FAMOTIDINE DULOXETINE DAPGLIFLOZIN
--- NOTE | 2022-09-13 14:00 | CA_ITS ---
APPROVED REPORT EXAM: Comprehensive 2D, Doppler, and color-flow Echocardiogram Manager Pipeline: Tammy Patino RT(R) Ht: 5 ft 3 in Wt: 190lbs BSA: 1.89 BP: 134/74 mmHg Indications: CP, COPD, Smoker, DM, AFIB, GERD, MILADYS, CHF 2D Dimensions LVOT 1.96 cm (M/F) 1.5-2.5 LVEF (Bowman's) 59.70 % F: 54 - 74 LV Volume 104.50 mL F: 46 - 106 LV Volume Index 55.29 mL/m2 F: 29 - 61 LA Volume 33.40 mL LA Volume Index 17.67 mL/m2 (M/F) 16-34 M-Mode Dimensions RVDd 2.77 cm (0.9-2.6) LA Diam 3.81 cm (1.9-4.0) LVDd 4.75 cm (3.5-5.7) Ao Diam 2.78 cm (2.0-3.7) LVDs 3.65 cm (3.5-5.7) IVSd 0.95 cm (0.6-1.1) PWd 0.80 cm (0.6-1.1) EF (Teich) 46.30% FS 23.20% EDV (Teich) 104.90 mL ESV (Teich) 56.30 mL LV Diastology E Decel Time 290.00 (160-240 msec) E/A Ratio 1.1 MED E' 7.30 (< 7 cm/sec) E'/MED E' Ratio 21.49 (>14) LAT E' 6.00 (<10 cm/sec) E/LAT E' Ratio 26.15 (>14) Mitral Valve MV E Max Nikhil. 157.00 (40-130 cm/s) MV A Velocity 146.00 (40-130 cm/s) E/A Ratio 1.07 MV Decel. Time 290.00 (160-240 ms) MV PHT 85.00 ms Tricuspid Valve TR P. Velocity 325.00 cm/s RAP Estimate 10.00 mmHg RVSP 52.40 mmHg Left Ventricle Left atrium is moderately enlarged, left ventricle is normal size mild concentric left ventricular hypertrophy, estimated ejection fraction 55% with no regional wall motion abnormality. Diastolic parameters are inconclusive, tissue Doppler is indicated will raise left atrial pressure. Right Ventricle Right atrium and right ventricle are mildly enlarged with normal contractility. Aortic Valve Aortic valve is minimally thickened and calcified without aortic stenosis or aortic insufficiency. Mitral Valve Both anterior and posterior mitral valve leaflets are minimally thickened, the posterior mitral leaflet appears to be mildly redundant, there is no significant mitral inflow obstruction, there is severe mitral regurgitation. A transesophageal echocardiogram is recommended for further evaluation. Tricuspid Valve Tricuspid valve is grossly normal, there is mild tricuspid regurgitation, calculated right ventricular systolic pressure is 57 mmHg. Pulmonic Valve Pulmonic valve is poorly visualized. Great Vessels Aortic root is normal size. Inferior vena cava is normal size with normal inspiratory collapse. Pericardium No significant pericardial effusion noted. Conclusion 1. Biatrial enlargement, normal left ventricular size, estimated ejection fraction 55% with no regional wall motion abnormality, Doppler evidence of raise left atrial pressure. 2. Abnormal mitral valve as described above with severe mitral regurgitation, a transesophageal echocardiogram is recommended. 3. Mild tricuspid regurgitation, calculated right ventricular systolic pressure is 57 mmHg. 4. Inferior vena cava is normal size with normal inspiratory collapse. 5. No significant pericardial effusion noted. Electronically signed by : Lizandro Morrow MD 09/14/2022 05:44:22
== END ==
PROVIDERS: PCP Family Medicine; Visit Provider Nurse Practitioner Family
DX: E78.5 Hyperlipidemia, unspecified (principal); I10 Essential (primary) hypertension; I25.10 Atherosclerotic heart disease of native coronary artery without angina pectoris; I48.0 Paroxysmal atrial fibrillation; I50.9 Heart failure, unspecified; R07.9 Chest pain, unspecified; R14.0 Abdominal distension (gaseous); Z72.0 Tobacco use
CPT/HCPCS: 78452; 93017; 93306; A9502; J2785

== ENCOUNTER 2022-09-15 08:20 | Day surgery (SDC) | payer MEDICARE, MEDICAID, SELFPAY ==
[2022-09-15] VITALS (12 sets, daily range): BP systolic 107–119; BP diastolic 58–75; PULSE 80–90; RESP 16–18; TEMP 37; O2SAT 92–99; BMI 34.3
[2022-09-15 08:46] LABS: Basophils # 0.1 K/mm3 (0-0.2); Basophils % 1.2 % (0.1-2.0); Eosinophils # 0.2 K/mm3 (0.0-0.4); Eosinophils % 3.1 % (0.1-12.0); Hematocrit 40.3 % (37.0-47.0); Hemoglobin 12.9 g/dL (12.2-16.2); Lymphocytes # 1.8 K/mm3 (0.7-4.5); Lymphocytes % 33.6 % (10-50); Mean Corpuscular Hemoglobin 28.1 pg (27.0-31.2); Mean Corpuscular Volume 87.6 fl (81-99); Mean Platelet Volume 9.2 fl (7.4-10.4); Monocytes # 0.3 K/mm3 (0.1-1.0); Monocytes % 6.5 % (1.7-9.3); Neutrophils # 2.9 K/mm3 (1.8-7.8); Neutrophils % 55.6 % (37.0-80.0); Platelet Count 145 K/mm3 (142-424); Red Cell Distribution Width 15.5 % (11.5-17.5); White Blood Count 5.3 K/mm3 (4.8-10.8)
[2022-09-15 08:55] LABS: Hemoglobin A1C 12.1 % (4.0-6.0)
[2022-09-15 09:24] LABS: Anion Gap 10.2 mEq/L (5-15); Blood Urea Nitrogen 17 mg/dl (7-17); Calcium 9.3 mg/dl (8.4-10.2); Carbon Dioxide 29 mmol/L (22.0-30.0); Chloride 104 mmol/L (98-107); Creatinine Clearance Estimated 98 mL/min (50-200); Estimated Glomerular Filt Rate 65 ml/min (>60); GFR (African American) 79 ML/MIN (>60); Glucose 141 mg/dl (74-100); Potassium 4.2 mmoL/L (3.5-5.1); Sodium 139 mmol/L (136-145)
--- NOTE | 2022-09-15 09:33 | IR_ITS ---
APPROVED REPORT Patient Location: Outpatient Research Phlebotomist: SURYA Tompkins RT (R) PROCEDURES Right heart catheterization Left heart catheterization Left ventriculogram Selective coronary angiogram INDICATION Severe mitral regurgitation, Abnormal echocardiogram, Preoperative evaluation for surgical repair of the mitral valve, Abnormal Myoview Informed consent was obtained prior to the procedure. COMPLICATIONS None Estimated Blood Loss: Less than 10 mls TECHNIQUE One percent lidocaine used to anesthetize the right anterior aspect of the wrist. The right radial artery was accessed via the Seldinger technique. A 6 Czech sheath was placed in the right radial artery. 2.5 mg of verapamil, 800 mcg of nitroglycerin, 1mg Lidocaine and 5000 U Heparin were given through the arterial sheath. The papa catheter was also used to perform left heart catheterization, left ventriculogram and selective coronary angiogram. At the end of the procedure the sheath was removed good hemostasis was achieved using Traclet band, patient was transferred to the postop holding area in stable condition. One percent lidocaine was used to anesthetize the right anterior aspect of the neck. A advertising operations manager needle was used to identify the right internal jugular vein. Following this a larger cannulation needle was used to cannulate the right internal jugular vein and a wire was passed into the vein. Prior to the 7 Czech sheath being inserted the wire was confirmed under fluoroscopic guidance to be in the inferior vena cava. A 7 Czech sheath was introduced and a [place]Moncho catheter was floated using hemodynamic waveforms in the pulmonary artery, right ventricle , and right atrium. Saturations were obtained in the pulmonary artery and the right atrium. At the end of the procedure the patient was transferred to the postop holding area in stable condition for sheath removal. ANGIOGRAPHIC RESULTS The left main artery Normal The left anterior descending artery Proximally normal with mid vessel 10% luminal regularities The circumflex artery Nondominant normal The right coronary artery Dominant with mid vessel 10 to 20% luminal regularities The NIEVES ventriculogram reveals Normal 65% The left ventricular end-diastolic pressure 15 mmHg Right atrial pressure 6 mmHg Pulmonary pressure 22/15 mmHg Pulmonary artery occlusion pressure 12 mmHg Right atrial saturation 76% Pulmonary artery saturation 74% Aortic saturation 99% Hemoglobin 12.3 Cardiac output 6.1 L/min via Brissa calculation IMPRESSION Mild nonflow limiting coronary artery disease Normal ejection fraction Borderline normal intracardiac pulmonary filling pressures PLAN 1. HIGINIO tomorrow to better evaluate the severity of mitral regurgitation 2. Continue medical management for mild nonflow limiting coronary artery disease Electronically signed by : Anthony Padilla MD 09/15/2022 10:27:26
[2022-09-15 10:11] LABS: Ferritin 11.6 ng/ml (11.1-264)
[2022-09-15 12:37] LABS: CATHL Arterial O2 SAT 76 % (90-100); CATHL Venous O2 SAT 74 % (75-80)
--- NOTE | 2022-09-15 12:42 | SUR.PHASEII ---
1200- pt decline meal tray 1145 attempted to remove 2ml of air and pt started oozing blood at insertion site, added 2ml of air to band and site stopped bleeding. 1210 removed 2ml air with no issues 1225 removed 2ml air with no issues 1240 removed 2ml with no issues
--- NOTE | 2022-09-15 12:53 | SUR.PHASEII ---
pt ambulated to bathroom with standby assist.
--- NOTE | 2022-09-15 13:27 | SUR.PHASEII ---
1252 2ml air removed from band 1302 2ml air removed from band 1312 no longer able to pull air out of band. removed band from wrist. no bleeding noted. pt tolerated well. pt and family educated on post care.
== END 2022-09-15 13:20 | disposition home or self-care (01) ==
PROVIDERS: Nurse Practitioner Family; Specialist; PCP Family Medicine; Visit Provider Internal Medicine
DX: E11.65 Type 2 diabetes mellitus with hyperglycemia (principal); K92.1 Melena; R07.9 Chest pain, unspecified; I48.0 Paroxysmal atrial fibrillation; I34.0 Nonrheumatic mitral (valve) insufficiency; Z79.899 Other long term (current) drug therapy; Z79.01 Long term (current) use of anticoagulants; Z79.84 Long term (current) use of oral hypoglycemic drugs
CPT/HCPCS: 36415; 80048; 82728; 82810; 83036; 85025; 93460; 99152; C1725; C1769; C1894; J1644; J2405; Q9967

== ENCOUNTER 2022-09-16 08:04 | Day surgery (SDC) | payer MEDICARE, MEDICAID, SELFPAY ==
[2022-09-16] VITALS (7 sets, daily range): BP systolic 107–148; BP diastolic 69–92; PULSE 82–87; RESP 14–19; O2SAT 95–100; BMI 34.3
--- NOTE | 2022-09-16 08:15 | CA_ITS ---
APPROVED REPORT EXAM: Comprehensive 2D, Doppler, and color-flow Echocardiogram [employer]er: Viola GordonVESNA alfaro Ht: 5 ft 3 in Wt: 194lbs BSA: 1.91 BP: 116/70 mmHg Indications: SEVERE MR SEEN ON TTE Procedure After obtaining informed consent, patient underwent transesophageal echo in the [facility]. Type of Sedation : Conscious Sedation Sedation was administered by Jose AstudilloRSamuelNSarah Transesophageal probe was inserted and advanced into esophagus without difficulty by Dr. Graham Guardado. The HIGINIO was performed without complications. Throughout the procedure, the blood pressure, pulse oximetry, cardiac rhythm, and rate were monitored. The patient tolerated the procedure without adverse effects. Recovery from conscious sedation was uneventful and vital signs were stable. Left Ventricle Left ventricle is normal size mild concentric left ventricular hypertrophy, estimated ejection fraction 55% with no regional wall motion abnormality. Right Ventricle Right ventricle is mildly enlarged with normal contractility. Atria Left atrium is moderately enlarged, left atrial appendage free of thrombus, there is adequate appendage flow. Right atrium is mildly enlarged. Intra-atrial septum is intact, there is no flow across the interatrial septum, agitated saline contrast study did not identify intracardiac shunt. Aortic Valve Aortic valve is minimally thickened and fibrosed there is no aortic stenosis or aortic insufficiency. Mitral Valve Mitral valve leaflets are minimally thickened, posterior mitral valve leaflet is more redundant, chordal structures are redundant also. There is no significant mitral inflow obstruction, there is severe mitral regurgitation. Pulmonary vein Doppler is suboptimal. Tricuspid Valve Tricuspid valve is grossly normal, there is mild tricuspid regurgitation. Pulmonic Valve Pulmonic valve is grossly normal. Great Vessels Aortic root is normal. Ascending, arch and descending thoracic aorta there is no aneurysm or dissection. Inferior vena cava is not well visualized. Pericardium No significant pericardial effusion noted. Conclusion 1. Mild biatrial enlargement, normal left ventricular size preserved left ventricular systolic function. Estimated ejection fraction 55%. 2. Abnormal mitral valve as described above with severe mitral regurgitation. 3. Mild tricuspid regurgitation. 4. Mildly enlarged right ventricle with normal contractility. 5. Agitated saline contrast study did not identify intracardiac shunt. 6. No significant pericardial effusion noted. 7. Ascending, arch and descending thoracic aorta there is no aneurysm or dissection. Electronically signed by : Lizandro Morrow MD 09/16/2022 12:24:02
--- NOTE | 2022-09-16 11:05 | P.PN_ITS ---
[facility] Disclaimer: The information contained in this section may have been updated after the patient was seen, as this information can be updated by other users. Medical History Abdominal distention Abdominal pain Abnormal result of cardiovascular function study Acute bronchitis Acute dyspnea Anemia Arthritis Back pain with history of spinal surgery CAD (coronary artery disease) Cervical dysphagia Chest pain Chest pain CHF (congestive heart failure) CKD (chronic kidney disease) COPD mixed type DDD (degenerative disc disease) Dehydration Dyspnea on exertion GERD (gastroesophageal reflux disease) Hepatomegaly Hoarseness or changing voice Hypokalemia Hypothyroidism Irritable bowel syndrome Knee pain, left Knee sprain Mitral regurgitation Nausea and vomiting Neuropathy OAB (overactive bladder) Osteoporosis Otitis media PAF (paroxysmal atrial fibrillation) Polyp of vocal cord Pulmonary emphysema Pulmonary emphysema Pulmonary nodule Recurrent acute otitis media Reflux esophagitis Rheumatoid arthritis Smoking greater than 30 pack years Sprain of other part of right wrist and hand, initial encounter Tobacco abuse disorder Tobacco use Typical angina Uncontrolled diabetes mellitus URI (upper respiratory infection) Vitamin B12 deficiency Vitamin D deficiency Surgical History History of appendectomy History of cholecystectomy History of colonoscopy History of ear surgery History of tonsillectomy History of total hysterectomy History of tubal ligation Family History Mother Coronary artery disease Hypertension Hyperlipidemia Heart attack Brother Hypertension Heart attack Hyperlipidemia Stroke Sister Heart attack Hyperlipidemia Hypertension Stroke Son Heart attack Hyperlipidemia Hypertension Stroke Daughter Hyperlipidemia Hypertension Other COPD (chronic obstructive pulmonary disease) Social History (Updated 09/16/22 @ 08:48 by Ayanna Iqbal RN) Smoking Status: Current every day smoker tobacco type: cigarettes packs per day: 1 years smoked: 40 alcohol intake: never substance use type: denies use current occupational status: disabled Travel in the last 8 weeks: None adopted: No lives independently: Yes marital status: single number of children: 3 service: No jail: No [facility] Anesthesia Checklist Patient Identification Patient Identification: Arm Band Structural Data Admitted From: Home Planned Operative Procedure/s: HIGINIO Consent for Planned Operative Procedure(s) Verified: Yes Verified Documents: Surgical Consent and History and Physical NPO Status Verified Time NPO: 00:00 Additional verifications Anesthesia Reactions: No Airway Assessment C-Spine Mobility Assessed: Yes TMJ Mobility Assessed: Yes Dentition: Edentulous Neurological Assessment Level of Consciousness: Awake and Alert Anesthesia Plan Anesthesia Risk discussed: Yes Anesthesia Plan: Verified ASA Class: III Anesthesia Type: MAC
== END 2022-09-16 10:45 | disposition home or self-care (01) ==
LOC: CATHLAB 08:05
PROVIDERS: PCP Family Medicine; Visit Provider Internal Medicine Cardiovascular Disease
DX: I34.0 Nonrheumatic mitral (valve) insufficiency (principal)
CPT/HCPCS: 93312

== ENCOUNTER → 2022-09-27 11:00 | Outpatient (CLI) | payer MEDICARE, MEDICAID, SELFPAY | PROVIDERS: PCP Family Medicine; Visit Provider Family Medicine | DX: R30.0 Dysuria (principal); B96.29 Other Escherichia coli [E. coli] as the cause of diseases classified elsewhere | CPT/HCPCS: 87086; 87088; 87186 ==

== ENCOUNTER → 2022-09-27 13:50 | Outpatient (CLI) | payer MEDICARE, MEDICAID, SELFPAY | DX: R30.0 Dysuria (principal) ==

== ENCOUNTER → 2022-11-04 10:20 | Outpatient (CLI) | payer MEDICARE, MEDICAID, SELFPAY ==
[2022-11-04 11:10] LABS: INR 1.95 (0.9-1.1); Prothrombin Time 20.3 seconds (10.1-12.5)
== END ==
PROVIDERS: PCP Family Medicine; Visit Provider Family Medicine
DX: I34.0 Nonrheumatic mitral (valve) insufficiency (principal); R79.1 Abnormal coagulation profile
CPT/HCPCS: 85610

== ENCOUNTER → 2022-11-07 17:34 | Outpatient (CLI) | payer MEDICARE, MEDICAID, SELFPAY ==
[2022-11-07 18:18] LABS: Prothrombin Time 33.3 seconds (10.1-12.5)
== END ==
PROVIDERS: Surgery
DX: I48.91 Unspecified atrial fibrillation (principal)
CPT/HCPCS: 85610

== ENCOUNTER 2022-11-10 12:48 | Inpatient (IN) | payer MEDICARE, MEDICAID, SELFPAY ==
[2022-11-10] VITALS (10 sets, daily range): BP systolic 91–99; BP diastolic 51–65; PULSE 60–70; RESP 14–17; TEMP 36.9–37.2; O2SAT 95–100; BMI 33.6; BMI 34.6
--- NOTE | 2022-11-10 12:59 | ECG_ITS ---
APPROVED REPORT Exam: Resting ECG HR:62 bpm ECG Measurements Heart Rate 62 AXES NV 179 P 94 QRSd 91 QRS 26 QT 427 T 23 QTc 433 Conclusion SINUS RHYTHM LOW QRS VOLTAGE IN PRECORDIAL LEADS [QRS DEFLECTION < 1.0 mV IN CHEST LEADS] POSSIBLE RIGHT VENTRICULAR CONDUCTION DELAY [RSR (QR) IN V1/V2] BORDERLINE ECG UNCONFIRMED REPORT Electronically signed by : Juan J Wynn MD 11/10/2022 16:41:45
--- NOTE | 2022-11-10 13:06 | XR_ITS ---
FINAL REPORT TECHNIQUE: Single view chest CLINICAL HISTORY: soa COMPARISON: 06/27/2022 FINDINGS: A single view of the chest was obtained. The heart is mildly enlarged. Patient is status post median sternotomy. There are mild chronic changes. Previously seen interstitial opacities have improved likely due to resolving edema. There is no pneumothorax. Osseous structures are unremarkable. IMPRESSION: Resolving edema. Reviewed, Interpreted and Dictated by Shahid Diana MD Transcribed by Madeline Madrigal Authenticated and [facility]
[2022-11-10 13:20] LABS: Chloride 89 mmol/L (98-107)
[2022-11-10 13:21] LABS: Potassium 5.4 mmoL/L (3.5-5.1); Sodium 126 mmol/L (136-145)
--- NOTE | 2022-11-10 13:21 | HMH.EDGENADL ---
Discharge Plan Disposition Patient Disposition: Admitted As Inpatient Condition: Serious Clinical Impressions Clinical Impression: TRINI (acute kidney injury), Acute dehydration, Acute hypotension Discharge ED Provider: Cristopher Sanchez Adult HPI General Chief complaint: Weakness Stated complaint: heart surgery in Time Seen by Provider: 11/10/22 13:20 Mode of Arrival: Ambulatory Source of Information: Patient Limitations: No Limitations Description of Symptoms (Recalled from ER Triage Doc. by RN): Pt referred to ED by surgeon after recent cardiac valve surgery, c/o I just feel tired since I got out of the hospital , also reports lightheadedness History of Present Illness HPI narrative: Patient states that she is sent from her primary care provider's office because of low blood pressure. States that she was released from [facility] in [place] on 10/27/2022 after open heart surgery. She says her blood pressure was low in the hospital and also has been low ever since going home. She has a home health nurse that comes twice a week. She says the home health nurse called her drupal architect yesterday because her blood pressure was in the 80s and her metoprolol was stopped. She says that in her primary care provider's office today, where she had a visit for postoperative follow-up, her blood pressure was again in the 80s and she was sent to the emergency room. She states she is lightheaded when she gets up to move around, but otherwise has no symptoms. Denies shortness of breath, chest pain, syncope. Related Data Home Medications Medication Instructions Recorded Confirmed nitroglycerin 0.4 mg sublingual 0.4 mg sublingual Q5M PRN Chest 01/22/18 11/10/22 tablet Pain potassium chloride 10 mEq 20 meq PO BID Supplement 01/22/18 11/10/22 capsule,extended release calcitriol 0.5 mcg capsule 1 mcg PO DAILY . 06/08/22 11/10/22 famotidine 40 mg tablet 40 mg PO BID . 06/08/22 11/10/22 metformin 500 mg tablet,extended 500 mg PO DAILY . 06/08/22 11/10/22 release 24 hr plecanatide 3 mg tablet (Trulance) 3 mg PO DAILY . 06/08/22 11/10/22 rosuvastatin 20 mg tablet 20 mg PO DAILY . 06/08/22 11/10/22 albuterol sulfate 90 mcg/actuation 2 puff inhalation Q6H PRN . 06/30/22 11/10/22 aerosol inhaler budesonide 0.5 mg/2 mL suspension 0.5 mg inhalation BID . 06/30/22 11/10/22 for nebulization dapagliflozin 10 mg tablet 10 mg PO DAILY . 06/30/22 11/10/22 imipramine HCl 25 mg tablet 25 mg PO HS . 06/30/22 11/10/22 ipratropium bromide 21 mcg (0.03 2 spray intranasal TID . 06/30/22 11/10/22 %) nasal spray gabapentin 800 mg tablet 800 mg PO TID . 09/06/22 11/10/22 oxycodone-acetaminophen 5 mg-325 1 tab PO TID . 09/06/22 11/10/22 mg tablet (Percocet) rimegepant 75 mg disintegrating 75 mg PO Q OTHER DAY PRN . 09/06/22 11/10/22 tablet (Nurtec ODT) tizanidine 4 mg capsule 4 mg PO TID . 09/06/22 11/10/22 spironolactone 25 mg tablet 25 mg PO DAILY . 09/15/22 11/10/22 (Aldactone) umeclidinium 62.5 mcg-vilanterol 1 inh inhalation DAILY . 09/15/22 11/10/22 25 mcg/actuation powdr for inhalation (Anoro Ellipta) albuterol sulfate 2.5 mg/3 mL 2.5 mg inhalation Q6H PRN 11/10/22 11/10/22 (0.083 %) solution for nebulization insulin glargine 100 unit/mL (3 40 unit SQ DAILY 11/10/22 11/10/22 mL) subcutaneous pen (Basaglar KwikPen U-100 Insulin) insulin lispro 100 unit/mL 30 unit SQ TID 11/10/22 11/10/22 subcutaneous pen pantoprazole 40 mg tablet,delayed 40 mg PO DAILY 11/10/22 11/10/22 release warfarin 2 mg tablet 2 mg PO DAILY 11/10/22 11/10/22 Previous Rx's Medication Instructions Recorded ipratropium 0.5 mg-albuterol 3 mg 3 ml inhalation QID PRN shortness 06/30/22 (2.5 mg base)/3 mL nebulization of breath or wheezing 90 days #270 soln mL rotigotine 2 mg/24 hour 2 mg transdermal DAILY RLS #30 ea 09/20/22 transdermal 24 hour patch duloxetine 30 mg capsule,delayed 90 mg PO DAILY Diabetic neurop
[2022-11-10 13:23] LABS: Blood Urea Nitrogen 71 mg/dl (7-17); Creatinine Clearance Estimated 20 mL/min (50-200); Estimated Glomerular Filt Rate 11 ml/min (>60); GFR (African American) 13 ML/MIN (>60)
[2022-11-10 13:24] LABS: Anion Gap 16.4 mEq/L (5-15); Calcium 8.8 mg/dl (8.4-10.2); Carbon Dioxide 26 mmol/L (22.0-30.0); Glucose 166 mg/dl (74-100)
--- NOTE | 2022-11-10 13:26 | PC.NURSE ---
Critical result recieved. Cr 4.2. Dr. Steiner notified.
[2022-11-10 13:35] LABS: Basophils # 0.1 K/mm3 (0-0.2); Basophils % 0.9 % (0.1-2.0); Eosinophils # 0.2 K/mm3 (0.0-0.4); Eosinophils % 3.3 % (0.1-12.0); Hematocrit 30.9 % (37.0-47.0); Hemoglobin 9.7 g/dL (12.2-16.2); Lymphocytes # 1.6 K/mm3 (0.7-4.5); Lymphocytes % 25.6 % (10-50); Mean Corpuscular HGB Conc 31.5 g/dL (31.8-35.4); Mean Corpuscular Hemoglobin 28.7 pg (27.0-31.2); Mean Corpuscular Volume 91.2 fl (81-99); Mean Platelet Volume 8.9 fl (7.4-10.4); Monocytes # 0.6 K/mm3 (0.1-1.0); Monocytes % 9.2 % (1.7-9.3); Neutrophils # 3.7 K/mm3 (1.8-7.8); Platelet Count 239 K/mm3 (142-424); Red Blood Count 3.38 M/mm3 (4.20-5.40); Red Cell Distribution Width 17.6 % (11.5-17.5)
[2022-11-10 13:36] LABS: Troponin I 0.11 ng/ml (0.00-0.034)
--- NOTE | 2022-11-10 13:48 | PC.NURSE ---
faxed a request for to [facility] to get discharge summary from visit 10/27/22.
--- NOTE | 2022-11-10 13:54 | PC.NURSE ---
paged cardiology for consult
--- NOTE | 2022-11-10 13:56 | PC.NURSE ---
dr krishna speaking with dr mejias
[2022-11-10 14:12] LABS: Microscopic, Urine URINE MICROSCOPIC (MICROSCOPIC)
[2022-11-10 14:16] LABS: Appearance,Urine CLEAR (Clear); Bilirubin,Urine Negative (Negative); Blood, Urine 3+ (Negative); Color,Urine YELLOW (Yellow); Glucose,Urine (UA) 1+ (Negative); Ketones,Urine Negative (Negative); Leukocyte Esterase,Urine TRACE (Negative); Nitrate,Urine Negative (Negative); Protein,Urine 1+ (Negative); Specific Gravity, Urine <= 1.005 (1.005-1.030); Urobilinogen,Urine 0.2 EU/dl (0.2)
--- NOTE | 2022-11-10 14:24 | PC.NURSE ---
Attempted blood draw for blood culture on right hand; unsuccessful x 1. EDU[facility] Law notified
[2022-11-10 14:30] LABS: Coronavirus 19, PCR Not Detected (NotDetected); Influenza A, PCR Not Detected (NotDetected); Influenza B, PCR Not Detected (NotDetected)
[2022-11-10 14:51] LABS: Alanine Aminotransferase 17 U/L (12-78); Alkaline Phosphatase 149 U/L (38-126); Aspartate Amino Transferase 31 U/L (14-36); Bilirubin,Direct 0.4 mg/dl (0.0-0.4); Bilirubin,Indirect 0.1 mg/dL (0.0-0.9); Bilirubin,Total 0.5 mg/dl (0.2-1.3); Bilirubin,Unconjugated 0.2 mg/dL (0.0-1.1); Total Protein,Serum 7.8 g/dl (6.3-8.2)
[2022-11-10 15:05] LABS: INR 5.68 (0.9-1.1); Prothrombin Time 55.6 seconds (10.1-12.5)
--- NOTE | 2022-11-10 15:05 | PC.NURSE ---
Received critical results from lab PT 55.6, INR 5.68. Primary RN and ED MD notified.
--- NOTE | 2022-11-10 15:12 | PC.NURSE ---
Report called to EDU[facility] Dover on inpatient floor accepting pt to room 209; notified of critical lab values for renal function and coagulation studies
--- NOTE | 2022-11-10 15:14 | PC.NURSE ---
Critical coagulation results called to Dr. Aj
--- NOTE | 2022-11-10 15:38 | PC.NURSE ---
Blood cultures x2 sets plus lactic acid serum specimen obtained and sent to lab
--- NOTE | 2022-11-10 15:46 | PC.NURSE ---
Patient going upstairs with staff at this time
[2022-11-10 15:58] LABS: Lactic Acid 1.2 mmol/L (0.7-2.1)
--- NOTE | 2022-11-10 16:54 | EXP.HP ---
History of Present Illness *Admission Date: 11/10/22 *Reason for visit:: weakness, TRINI *History of present illness: Ms. De La Fuente is a pleasant 57-year-old female with history of mitral valve stenosis who underwent mitral valve replacement on 10/17 at [facility] in [place]. Was discharged home on 10/27. States her blood pressure has been low since her surgery and she has been monitored by home health nurse twice a week. Yesterday her metoprolol was stopped at the instruction of her information security engineer because her systolics were in the 80s. Went to her primary care office today because of weakness and for postop follow-up. Blood pressure again in the 80s and she was therefore sent to the ER for further evaluation. She has been feeling lightheaded, dizzy, weak. Continuing to take her medications as instructed including her diuretics. Denies any chest pain, shortness of breath, cough, syncope, confusion. On work-up in the ER, noted to have significant TRINI, supratherapeutic INR, and anemia. Cardiology consulted recommended admission. Medicine consulted for admission. After arriving to the floor, patient states she is feeling little better since starting IV fluids. Denies any fevers. Is not currently dizzy while laying flat. Has been taking her warfarin daily as prescribed. Denies any active bleeding or overt bleeding. Has felt significantly better since her surgery with her valve replacement. [facility] Disclaimer: The information contained in this section may have been updated after the patient was seen, as this information can be updated by other users. Medical History Abdominal distention Abdominal pain Abnormal result of cardiovascular function study Acute bronchitis Acute dyspnea Anemia Arthritis Back pain with history of spinal surgery CAD (coronary artery disease) Cervical dysphagia Chest pain Chest pain CHF (congestive heart failure) CKD (chronic kidney disease) COPD mixed type DDD (degenerative disc disease) Dehydration Dyspnea on exertion Falling GERD (gastroesophageal reflux disease) Hepatomegaly Hoarseness or changing voice Hypokalemia Hypothyroidism Irritable bowel syndrome Knee pain, left Knee sprain Left foot pain Mitral regurgitation Nausea and vomiting Near syncope Neuropathy OAB (overactive bladder) Osteoporosis Otitis media PAF (paroxysmal atrial fibrillation) Polyp of vocal cord Pulmonary emphysema Pulmonary emphysema Pulmonary nodule Recurrent acute otitis media Reflux esophagitis Rheumatoid arthritis Right knee pain Smoking greater than 30 pack years Sprain of other part of right wrist and hand, initial encounter Tobacco abuse disorder Tobacco use Typical angina Uncontrolled diabetes mellitus URI (upper respiratory infection) Vitamin B12 deficiency Vitamin D deficiency Surgical History Heart valve replaced History of appendectomy History of cholecystectomy History of colonoscopy History of ear surgery History of tonsillectomy History of total hysterectomy History of tubal ligation Family History Coronary artery disease Mother Hyperlipidemia Mother Brother Sister Son Daughter Heart attack Mother Brother Sister Son COPD (chronic obstructive pulmonary disease) Hypertension Mother Brother Sister Son Daughter Stroke Brother Sister Son Social History Smoking Status: Former smoker years smoked: 40 smoking status stop date: 10/17/22 alcohol intake: never substance use type: denies use current occupational status: disabled Travel in the last 8 weeks: None adopted: No household members: children housing: other lives independently: No (son lives with pt) marital status: number of children: 3 education level: high school rupinder
[2022-11-10 19:16] LABS: Troponin I 0.09 ng/ml (0.00-0.034)
[2022-11-10 21:15] LABS: POC Glucose,Bedside 209 (70-110)
[2022-11-10 21:51] LABS: Troponin I 0.09 ng/ml (0.00-0.034)
[2022-11-11] VITALS (8 sets, daily range): BP systolic 104–142; BP diastolic 59–89; PULSE 75–94; RESP 16–22; TEMP 36.5–36.9; O2SAT 96–100; BMI 34.6
--- NOTE | 2022-11-11 04:07 | PC.NURSE ---
The patient is admitted for TRINI and dehydration. She did not have any issues overnight. Her blood pressure is improving on IV fluids. The patient is not on VTE prophylaxis since she is supratherapeutic with an INR > 5.
[2022-11-11 07:03] LABS: POC Glucose,Bedside 219 (70-110)
[2022-11-11 07:03] LABS: Basophils % 0.8 % (0.1-2.0); Eosinophils # 0.2 K/mm3 (0.0-0.4); Eosinophils % 2.8 % (0.1-12.0); Hemoglobin 9.9 g/dL (12.2-16.2); Lymphocytes # 1.4 K/mm3 (0.7-4.5); Lymphocytes % 24.2 % (10-50); Mean Corpuscular Hemoglobin 29.3 pg (27.0-31.2); Mean Corpuscular Volume 91.7 fl (81-99); Mean Platelet Volume 8.5 fl (7.4-10.4); Monocytes # 0.5 K/mm3 (0.1-1.0); Monocytes % 8.9 % (1.7-9.3); Neutrophils # 3.5 K/mm3 (1.8-7.8); Neutrophils % 63.4 % (37.0-80.0); Platelet Count 197 K/mm3 (142-424); Red Blood Count 3.38 M/mm3 (4.20-5.40); Red Cell Distribution Width 17.7 % (11.5-17.5); White Blood Count 5.6 K/mm3 (4.8-10.8)
[2022-11-11 07:11] LABS: Alanine Aminotransferase 18 U/L (12-78); Albumin Level 4.1 g/dl (3.5-5.0); Albumin/Globulin Ratio 1.1 (1.1-1.8); Alkaline Phosphatase 158 U/L (38-126); Aspartate Amino Transferase 27 U/L (14-36); Bilirubin,Total 0.7 mg/dl (0.2-1.3); Blood Urea Nitrogen 65 mg/dl (7-17); Calcium 8.9 mg/dl (8.4-10.2); Carbon Dioxide 23 mmol/L (22.0-30.0); Chloride 92 mmol/L (98-107); Creatinine Clearance Estimated 27 mL/min (50-200); Estimated Glomerular Filt Rate 14 ml/min (>60); GFR (African American) 17 ML/MIN (>60); Globulin 3.6 g/dL (1.3-3.2); Glucose 168 mg/dl (74-100); Magnesium 1.8 mg/dl (1.6-2.3); Sodium 128 mmol/L (136-145); Total Protein,Serum 7.7 g/dl (6.3-8.2)
[2022-11-11 07:25] LABS: Prothrombin Time 60.4 seconds (10.1-12.5)
--- NOTE | 2022-11-11 07:31 | PC.NURSE ---
Hospitalist Dr. Padilla notified of critical pt and INR
--- NOTE | 2022-11-11 08:18 | HMH.PHAINT1 ---
Pharmacy Intervention Comments: MEDICATION RECONCILIATION COMPLETED ON PATIENT USING EXTERNAL FILL HISTORY FROM PHARMACY, PATIENT INTERVIEW, AND RAMEZ REPORT. -OLAG ESCOTOD
--- NOTE | 2022-11-11 08:22 | CA_ITS ---
APPROVED REPORT EXAM: Comprehensive 2D, Doppler, and color-flow Echocardiogram Quality Systems Engineer: Tammy Patino RT(R) Ht: 5 ft 3 in Wt: 195lbs BSA: 1.91 BP: 99/65 mmHg Indications: CAD, CHF, porcine MV 10/17/22, hypotension, COPD, ex smoker, hyperlipidemia, obesity, TRINI 2D Dimensions LVOT 1.87 cm (M/F) 1.5-2.5 LVEF (Bowman's) 55.20 % F: 54 - 74 LV Volume 79.30 mL F: 46 - 106 LV Volume Index 41.52 mL/m2 F: 29 - 61 LA Volume 67.40 mL LA Volume Index 35.29 mL/m2 (M/F) 16-34 M-Mode Dimensions RVDd 3.31 cm (0.9-2.6) LA Diam 3.71 cm (1.9-4.0) LVDd 4.97 cm (3.5-5.7) Ao Diam 2.26 cm (2.0-3.7) LVDs 3.86 cm (3.5-5.7) IVSd 1.15 cm (0.6-1.1) PWd 0.51 cm (0.6-1.1) EF (Teich) 44.90% FS 22.30% EDV (Teich) 116.60 mL ESV (Teich) 64.30 mL LV Diastology E Decel Time 197.00 (160-240 msec) E/A Ratio 3.2 Aortic Valve AO VTI 63.96 (18-25 cm) Mitral Valve MV E Max Nikhil. 219.00 (40-130 cm/s) MV A Velocity 69.00 (40-130 cm/s) E/A Ratio 3.16 MV Decel. Time 197.00 (160-240 ms) MV PHT 58.00 ms Tricuspid Valve TR P. Velocity 247.00 cm/s RAP Estimate 15.00 mmHg RVSP 39.40 mmHg Left Ventricle Left atrium is mildly enlarged, left ventricle is normal size, estimated ejection fraction 55% with no regional wall motion abnormality, diastolic parameters are inconclusive. Right Ventricle Right atrium and right ventricle are mildly enlarged with normal contractility. Aortic Valve Valve is minimally thickened and fibrosed there is no aortic stenosis aortic insufficiency. Mitral Valve There is bioprosthetic valve noted in the mitral position, valve is well-seated, the mean gradient across mitral valve is 8 mmHg, however the valve area is 3.7 cm??? by pressure half-time. There is no significant mitral regurgitation seen. Tricuspid Valve Tricuspid valve is grossly normal, there is mild tricuspid regurgitation, tricuspid regurgitation jet velocity is inadequate for calculation of the right ventricular systolic pressure. Pulmonic Valve Pulmonic valve is poorly visualized. Great Vessels Aortic root is normal size. Inferior vena cava is poorly visualized. Pericardium No significant pericardial effusion noted. Conclusion 1. Biatrial enlargement, normal left ventricular size, estimated ejection fraction 55% with no regional wall motion abnormality, diastolic parameters are inconclusive. 2. Mildly enlarged right ventricle with normal contractility. 3. Bioprosthetic valve in the mitral position, mean gradient across the valve is 8 mmHg, however the valve area is 3.7 cm??? by pressure half-time, there is no significant mitral regurgitation. The increased velocities across the mitral valve is likely secondary to increased left atrial volume. 4. Mild tricuspid regurgitation. 5. No significant pericardial effusion noted. 6. Inferior vena cava is poorly visualized. Electronically signed by : Lizandro Morrow MD 11/11/2022 16:44:00
[2022-11-11 09:06] LABS: POC Glucose,Bedside 261 (70-110)
--- NOTE | 2022-11-11 09:49 | EXP.CARD.CON ---
History of Present Illness History of Present Illness Consult date: 11/11/22 Requesting physician: Adam Aj Chief complaint: weakness History of present illness: This is a 57-year-old white female who presented to the emergency department with complaints of weakness and fatigue. The patient underwent mitral valve replacement at the [facility] on 10/17/2022. The patient states that she was discharged home on 10/27/2022. She states that she had been doing well but since being discharged from the hospital her blood pressure had been low. She states that her bat boy/girl had instructed her to discontinue her metoprolol when her blood pressure was in the 80s systolic. She states that she continued to be hypotensive and went to see her primary care provider yesterday. She was having weakness and fatigue and just did not feel well. Her primary care provider recommended she be seen in the emergency department for further evaluation. The patient was still currently on her diuretics with worsening weakness, fatigue, dizziness and lightheadedness. She was found to be hypotensive and in acute renal failure with a creatinine of 4.2, she was also hyponatremic with a sodium of 127 on arrival to the emergency department. The patient did have slightly elevated troponins in the emergency department. The patient has been started on IV fluids and she is feeling much better. Her creatinine is down to 3.3 today. She denies any chest pain or pressure. She denies any shortness of breath or edema. She denies any fever, chills, nausea, vomiting, diarrhea, PND or orthopnea. She denies any syncope or confusion. She currently denies any dizziness or lightheadedness. The patient has been taking her Coumadin regularly and she was supratherapeutic with an INR of 5.68 on admission, it is up to 6.2 today. [facility] Disclaimer: The information contained in this section may have been updated after the patient was seen, as this information can be updated by other users. Medical History (Updated 11/11/22 @ 09:58 by Reyna Luna APRN) Abdominal distention Abdominal pain Abnormal result of cardiovascular function study Acute bronchitis Acute dyspnea Anemia Arthritis Back pain with history of spinal surgery CAD (coronary artery disease) Cervical dysphagia Chest pain Chest pain CHF (congestive heart failure) CKD (chronic kidney disease) COPD mixed type DDD (degenerative disc disease) Dehydration Dyspnea on exertion Elevated troponin Falling GERD (gastroesophageal reflux disease) Hepatomegaly Hoarseness or changing voice Hypokalemia Hyponatremia Hypothyroidism Irritable bowel syndrome Knee pain, left Knee sprain Left foot pain Mitral regurgitation Mitral valve insufficiency Nausea and vomiting Near syncope Neuropathy OAB (overactive bladder) Osteoporosis Otitis media PAF (paroxysmal atrial fibrillation) Polyp of vocal cord Pulmonary emphysema Pulmonary emphysema Pulmonary nodule Recurrent acute otitis media Reflux esophagitis Rheumatoid arthritis Right knee pain Smoking greater than 30 pack years Sprain of other part of right wrist and hand, initial encounter Tobacco abuse disorder Tobacco use Typical angina Uncontrolled diabetes mellitus URI (upper respiratory infection) Vitamin B12 deficiency Vitamin D deficiency Surgical History Heart valve replaced History of appendectomy History of cholecystectomy History of colonoscopy History of ear surgery History of tonsillectomy History of total hysterectomy History of tubal ligation Family History Coronary artery disease Mother Hyperlipidemia Mother Brother Sister Son Daughter Heart attack Mother Brother Sister Son COPD (chronic obstructive pulmonary disease) Hypertension Mother Brother Sister Son Daughter Stroke Brother Sister Son Social History (Review
--- NOTE | 2022-11-11 10:07 | SW/DCPLANNER ---
Addendum entered by Jana Pulido 11/14/22 09:26: Updated patient information has been faxed to [facility] to resume home health services. Addendum entered by Jaan Pulido 11/11/22 13:01: I also received a consult on this patient regarding: PCS4. I have provided this patient with an [facility] Resource list. Patient has no further needs/questions at this time. Original Note: This patient is currently established with [facility]. I will fax patient information to [facility] once patient is medically stable for discharge.
[2022-11-11 11:27] LABS: POC Glucose,Bedside 229 (70-110)
[2022-11-11 13:06] LABS: POC Glucose,Bedside 238 (70-110)
--- NOTE | 2022-11-11 16:20 | EXP.ACUTE.PN ---
Subjective *Date: 11/11/22 *Time: 16:20 Interval history: No issues Medical Exam Vital signs and Labs for Last 24 Hours: Vital Signs Temp Pulse Pulse Resp BP Pulse Ox 11/11/22 16:00 88 11/11/22 12:00 80 11/11/22 12:00 97.7 F 83 20 111/62 100 11/11/22 08:00 98.5 F 89 22 142/89 H 97 11/11/22 08:00 90 11/11/22 06:12 80 11/11/22 06:12 80 11/11/22 04:00 80 11/11/22 04:00 98.5 F 78 16 104/66 L 99 11/11/22 00:00 75 11/10/22 20:00 98 11/10/22 20:00 70 11/10/22 20:00 98.5 F 67 16 97/54 L 98 11/10/22 19:38 68 11/10/22 19:38 67 Intake and Output 11/11/22 11/11/22 11/11/22 07:59 15:59 23:59 Intake Total 720 / 720 Output Total 600 / 600 0 / 600 Balance -600 / 120 720 / 120 Intake: Intake, Oral Amount 720 / 720 Output: Output, Urine Amount 600 / 600 0 / 600 Other: Number of Unmeasured Voids 1 Weight 88.677 kg Patient Weight 11/11/22 23:59 Weight 88.677 kg Laboratory Results - last 24 hr 11/10/22 18:20: Troponin I 0.09 H 11/10/22 21:03: POC Glucose 209 H 11/10/22 21:25: Troponin I 0.09 H 11/11/22 06:45: WBC 5.6, RBC 3.38 L, Hgb 9.9 L, Hct 31.0 L, MCV 91.7, MCH 29.3, MCHC 32.0, RDW 17.7 H, Plt Count 197, MPV 8.5, Neut % (Auto) 63.4, Lymph % (Auto) 24.2, [place] % (Auto) 8.9, Eos % (Auto) 2.8, Baso % (Auto) 0.8, Neut # (Auto) 3.5, Lymph # (Auto) 1.4, [place] # (Auto) 0.5, Eos # (Auto) 0.2, Baso # (Auto) 0.0 11/11/22 06:45: Sodium 128 L, Potassium 5.0, Chloride 92 L, Carbon Dioxide 23, Anion Gap 18.0 H, BUN 65 H, Creatinine 3.30 H D, Estimated Creat Clear 27, Estimated GFR 14 L*, Est GFR ( Amer) 17 L* D, Glucose 168 H, Calcium 8.9, Magnesium 1.8, Total Bilirubin 0.7, AST 27, ALT 18, Alkaline Phosphatase 158 H, Total Protein 7.7, Albumin 4.1, Globulin 3.6 H, Albumin/Globulin Ratio 1.1 11/11/22 06:45: PT 60.4 H, INR 6.20 H 11/11/22 06:55: POC Glucose 219 H 11/11/22 08:39: POC Glucose 261 H 11/11/22 11:19: POC Glucose 229 H 11/11/22 12:56: POC Glucose 238 H I & O for Labs for Last 24 Hours: Intake & Output 11/08/22 11/09/22 11/10/22 11/11/22 23:59 23:59 23:59 23:59 Intake Total 240 / 240 720 / 720 Output Total 550 / 700 600 / 600 Balance -310 / -460 120 / 120 Weight 88.649 kg 88.677 kg Constitutional: Present no acute distress Respiratory: Present normal respiratory effort Cardiac: Present Reg Rate and Rhythm GI: Present normal bowel sounds; Absent tenderness Extremities: Present normal inspection and full ROM Skin: Present intact; Absent erythema Neuro: Present Grossly Intact and moves all extremities Assessment and Plan *Assessment and plan (1) Acute hypotension: Status: Acute Category: Medical Code(s): I95.9 - Hypotension, unspecified (2) Acute dehydration: Status: Acute Category: Medical Code(s): E86.0 - Dehydration (3) TRINI (acute kidney injury): Status: Acute Category: Medical Code(s): N17.9 - Acute kidney failure, unspecified (4) Coronary arteriosclerosis: Status: Acute Category: Medical Code(s): I25.10 - Atherosclerotic heart disease of [place] coronary artery without angina pectoris (5) Mitral valve insufficiency: Status: Acute Qualifiers: Cardiac valve disease etiology: etiology unspecified Qualified Code(s): I34.0 - Nonrheumatic mitral (valve) insufficiency Category: Medical Code(s): I34.0 - Nonrheumatic mitral (valve) insufficiency (6) H/O mitral valve replacement: Status: Acute Category: Surgical Code(s): Z95.2 - Presence of prosthetic heart valve (7) Supratherapeutic INR: Status: Acute Category: Medical Code(s): R79.1 - Abnormal coagulation profile (8) Chronic anticoagulation: Status: Chronic Category: Medical Code(s): Z79.01 - FPC (current) use of anticoagulants (9) PAF (pa
[2022-11-11 16:44] LABS: POC Glucose,Bedside 177 (70-110)
--- NOTE | 2022-11-11 18:00 | PC.NURSE ---
Patient up to chair for lunch and rest of shift. VS stable and patient remained on room air. IV fluids maintained and patient stated she felt better today compared to yesterday. INR still trending high, hospitalist aware. No other changes noted.
[2022-11-11 20:18] LABS: POC Glucose,Bedside 237 (70-110)
[2022-11-11 22:48] LABS: POC Glucose,Bedside 214 (70-110)
[2022-11-12] VITALS (11 sets, daily range): BP systolic 116–150; BP diastolic 68–86; PULSE 90–120; RESP 18–20; TEMP 36.6–37.6; O2SAT 97–100; BMI 34.7
[2022-11-12 03:06] LABS: Microscopic, Urine URINE MICROSCOPIC (MICROSCOPIC)
[2022-11-12 03:09] LABS: Appearance,Urine SL CLOUDY (Clear); Bilirubin,Urine Negative (Negative); Blood, Urine 3+ (Negative); Color,Urine ORANGE (Yellow); Glucose,Urine (UA) 3+ (Negative); Ketones,Urine Negative (Negative); Leukocyte Esterase,Urine 2+ (Negative); Nitrate,Urine Negative (Negative); Protein,Urine 1+ (Negative); Specific Gravity, Urine <= 1.005 (1.005-1.030); Urobilinogen,Urine 0.2 EU/dl (0.2)
[2022-11-12 03:28] LABS: Bacteria,Urine 1+ /lpf; RBC,Urine 50-100 #/hpf (0-3); Squamous Epithelial Cell,Urine Occasional #/hpf (0-5); WBC,Urine 20-50 #/hpf (0-3)
--- NOTE | 2022-11-12 04:06 | PC.NURSE ---
The patient is still on room air and maintaining oxygen saturations above 90%. She complained of suspecting blood in her urine and a sample was sent to the lab for urinalysis. She is still ambulating independently within the room and to the bathroom. VTE prophylaxis is still on hold as her INR level is still above 5.
[2022-11-12 06:23] LABS: POC Glucose,Bedside 298 (70-110)
[2022-11-12 07:29] LABS: Basophils % 0.4 % (0.1-2.0); Eosinophils # 0.1 K/mm3 (0.0-0.4); Eosinophils % 2.5 % (0.1-12.0); Hematocrit 28.8 % (37.0-47.0); Hemoglobin 9.5 g/dL (12.2-16.2); Lymphocytes % 18.7 % (10-50); Mean Corpuscular Hemoglobin 30.7 pg (27.0-31.2); Mean Corpuscular Volume 92.9 fl (81-99); Mean Platelet Volume 8.4 fl (7.4-10.4); Monocytes # 0.4 K/mm3 (0.1-1.0); Monocytes % 7.1 % (1.7-9.3); Neutrophils # 3.9 K/mm3 (1.8-7.8); Neutrophils % 71.1 % (37.0-80.0); Platelet Count 147 K/mm3 (142-424); Red Blood Count 3.11 M/mm3 (4.20-5.40); Red Cell Distribution Width 17.9 % (11.5-17.5); White Blood Count 5.5 K/mm3 (4.8-10.8)
[2022-11-12 07:40] LABS: Alanine Aminotransferase 19 U/L (12-78); Albumin Level 3.9 g/dl (3.5-5.0); Albumin/Globulin Ratio 1.2 (1.1-1.8); Alkaline Phosphatase 171 U/L (38-126); Aspartate Amino Transferase 26 U/L (14-36); Bilirubin,Total 0.7 mg/dl (0.2-1.3); Blood Urea Nitrogen 50 mg/dl (7-17); Calcium 8.6 mg/dl (8.4-10.2); Carbon Dioxide 25 mmol/L (22.0-30.0); Chloride 97 mmol/L (98-107); Creatinine Clearance Estimated 40 mL/min (50-200); Estimated Glomerular Filt Rate 23 ml/min (>60); GFR (African American) 28 ML/MIN (>60); Globulin 3.2 g/dL (1.3-3.2); Glucose 258 mg/dl (74-100); Magnesium 1.7 mg/dl (1.6-2.3); Phosphorous 3.5 mg/dl (2.5-4.5); Sodium 131 mmol/L (136-145); Total Protein,Serum 7.1 g/dl (6.3-8.2)
[2022-11-12 07:42] LABS: INR 4.48 (0.9-1.1); Prothrombin Time 44.4 seconds (10.1-12.5)
[2022-11-12 07:46] LABS: Anion Gap 13.9 mEq/L (5-15); Potassium 4.9 mmoL/L (3.5-5.1)
[2022-11-12 11:42] LABS: POC Glucose,Bedside 252 (70-110)
--- NOTE | 2022-11-12 13:23 | EXP.ACUTE.PN ---
Subjective *Date: 11/12/22 *Time: 13:23 Interval history: Feels well, much improved. Tolerating diet. Having some leaking from her incision sites no issues Medical Exam Vital signs and Labs for Last 24 Hours: Vital Signs Temp Pulse Pulse Resp BP Pulse Ox 11/12/22 11:52 98.2 F 92 H 20 124/72 98 11/12/22 08:00 97.9 F 106 H 18 120/68 98 11/12/22 06:16 110 H 11/12/22 06:16 102 H 11/12/22 04:00 100 H 11/12/22 04:00 97.8 F 99 H 18 116/70 98 11/12/22 00:00 90 11/12/22 00:00 98.1 F 103 H 20 130/71 100 11/11/22 20:00 90 11/11/22 20:00 98.2 F 94 H 18 114/68 96 11/11/22 18:59 81 11/11/22 18:59 81 11/11/22 16:00 97.8 F 89 20 109/59 L 100 11/11/22 16:00 88 Intake and Output 11/11/22 11/12/22 11/12/22 23:59 07:59 15:59 Intake Total 1382 / 2102 1945 / 1945 Output Total 200 / 200 Balance 1382 / 1502 1745 / 1745 Intake: Intake, Oral Amount 240 / 960 960 / 960 Intake, Total IV Amount 1142 / 1142 985 / 985 Lactated Ringers 1000ML 1,000 1142 / 1142 985 / 985 ml @ 50 mls/hr IV .Q20H [facility] Rx# :[id number] Output: Output, Urine Amount 200 / 200 Other: Number of Unmeasured Voids 1 2 Weight 88.89 kg Patient Weight 11/12/22 23:59 Weight 88.89 kg Laboratory Results - last 24 hr 11/11/22 16:36: POC Glucose 177 H 11/11/22 20:11: POC Glucose 237 H 11/11/22 22:41: POC Glucose 214 H 11/12/22 01:28: Urine Color [place], Urine Appearance Sl cloudy, Urine pH 6.0, Ur Specific [place] <= 1.005, Urine Protein 1+, Urine Glucose (UA) 3+, Urine Ketones Negative, Urine Blood 3+, Urine Nitrate Negative, Urine Bilirubin Negative, Urine Urobilinogen 0.2, Ur Leukocyte Esterase 2+ A, Urine RBC 50-100, Urine WBC 20-50, Ur Squamous Epith Cells Occasional, Urine Bacteria 1+ 11/12/22 06:16: POC Glucose 298 H 11/12/22 07:08: PT 44.4 H, INR 4.48 H 11/12/22 07:08: WBC 5.5, RBC 3.11 L, Hgb 9.5 L, Hct 28.8 L, MCV 92.9, MCH 30.7, MCHC 33.0, RDW 17.9 H, Plt Count 147 D, MPV 8.4, Neut % (Auto) 71.1, Lymph % (Auto) 18.7, [place] % (Auto) 7.1, Eos % (Auto) 2.5, Baso % (Auto) 0.4, Neut # (Auto) 3.9, Lymph # (Auto) 1.0, [place] # (Auto) 0.4, Eos # (Auto) 0.1, Baso # (Auto) 0.0 11/12/22 07:08: Sodium 131 L, Potassium 4.9, Chloride 97 L, Carbon Dioxide 25, Anion Gap 13.9, BUN 50 H, Creatinine 2.20 H D, Estimated Creat Clear 40, Estimated GFR 23 L, Est GFR ( Amer) 28 L D, Glucose 258 H, Calcium 8.6, Phosphorus 3.5, Magnesium 1.7, Total Bilirubin 0.7, AST 26, ALT 19, Alkaline Phosphatase 171 H, Total Protein 7.1, Albumin 3.9, Globulin 3.2, Albumin/Globulin Ratio 1.2 11/12/22 11:34: POC Glucose 252 H I & O for Labs for Last 24 Hours: Intake & Output 11/09/22 11/10/22 11/11/22 11/12/22 23:59 23:59 23:59 23:59 Intake Total 240 / 240 2102 / 2102 1945 / 1945 Output Total 550 / 700 600 / 600 200 / 200 Balance -310 / -460 1502 / 1502 1745 / 1745 Weight 88.649 kg 88.677 kg 88.89 kg Constitutional: Present no acute distress Head: Present atraumatic Respiratory: Present normal respiratory effort Cardiac: Present Reg Rate and Rhythm GI: Present normal bowel sounds; Absent tenderness Extremities: Present normal inspection and full ROM Skin: Present intact; Absent erythema Neuro: Present Grossly Intact and moves all extremities Assessment and Plan *Assessment and plan (1) Acute hypotension: Status: Acute Category: Medical Code(s): I95.9 - Hypotension, unspecified (2) Acute dehydration: Status: Acute Category: Medical Code(s): E86.0 - Dehydration (3) TRINI (acute kidney injury): Status: Acute Category: Medical Code(s): N17.9 - Acute kidney failure, unspecified (4) Coronary arteriosclerosis: Status: Acute Category: Medical Code(s): I25.10 - Atherosclerotic heart disease of [place] coronary artery without angina pectoris (5) Mitral valve insufficiency:
--- NOTE | 2022-11-12 15:53 | PC.NURSE ---
No acute changes noted. Patient ambulated in hallways several times during shift. VS stable and patient remained on room air. Pain medication given for chronic chest pain.
[2022-11-12 16:26] LABS: POC Glucose,Bedside 203 (70-110)
[2022-11-12 20:30] LABS: POC Glucose,Bedside 225 (70-110)
[2022-11-13] VITALS: BP 131/69; PULSE 110; PULSE 114; RESP 18; TEMP 37.3; O2SAT 94
[2022-11-13 04:00] VITALS: BP 129/86; PULSE 114; RESP 19; TEMP 36.4; O2SAT 99; BMI 35.9
--- NOTE | 2022-11-13 05:49 | PC.NURSE ---
pt. removed IV on previous shift, pt refused a new IV, Denise HENAO was notified.
[2022-11-13 06:00] VITALS: PULSE 120
[2022-11-13 06:40] VITALS: PULSE 109; PULSE 117
[2022-11-13 07:29] VITALS: BP 140/70; PULSE 123; RESP 16; TEMP 36.8; O2SAT 94
[2022-11-13 07:36] LABS: POC Glucose,Bedside 152 (70-110)
[2022-11-13 07:38] LABS: Basophils % 0.4 % (0.1-2.0); Eosinophils # 0.2 K/mm3 (0.0-0.4); Eosinophils % 2.2 % (0.1-12.0); Hematocrit 27.9 % (37.0-47.0); Hemoglobin 8.7 g/dL (12.2-16.2); Lymphocytes # 1.4 K/mm3 (0.7-4.5); Lymphocytes % 17.1 % (10-50); Mean Corpuscular HGB Conc 31.1 g/dL (31.8-35.4); Mean Corpuscular Hemoglobin 28.4 pg (27.0-31.2); Mean Platelet Volume 8.6 fl (7.4-10.4); Monocytes # 0.6 K/mm3 (0.1-1.0); Monocytes % 7.6 % (1.7-9.3); Neutrophils # 5.8 K/mm3 (1.8-7.8); Neutrophils % 72.7 % (37.0-80.0); Platelet Count 162 K/mm3 (142-424); Red Blood Count 3.06 M/mm3 (4.20-5.40); Red Cell Distribution Width 17.6 % (11.5-17.5)
[2022-11-13 07:44] LABS: Chloride 96 mmol/L (98-107); Sodium 131 mmol/L (136-145)
[2022-11-13 07:47] LABS: Alanine Aminotransferase 17 U/L (12-78); Albumin Level 4.1 g/dl (3.5-5.0); Albumin/Globulin Ratio 1.2 (1.1-1.8); Alkaline Phosphatase 152 U/L (38-126); Aspartate Amino Transferase 28 U/L (14-36); Bilirubin,Total 1.1 mg/dl (0.2-1.3); Blood Urea Nitrogen 34 mg/dl (7-17); Carbon Dioxide 27 mmol/L (22.0-30.0); Creatinine Clearance Estimated 57 mL/min (50-200); Estimated Glomerular Filt Rate 33 ml/min (>60); GFR (African American) 40 ML/MIN (>60); Globulin 3.5 g/dL (1.3-3.2); INR 2.37 (0.9-1.1); Phosphorous 2.9 mg/dl (2.5-4.5); Prothrombin Time 24.4 seconds (10.1-12.5); Total Protein,Serum 7.6 g/dl (6.3-8.2)
[2022-11-13 07:48] LABS: Glucose 134 mg/dl (74-100)
[2022-11-13 08:00] VITALS: PULSE 120
--- NOTE | 2022-11-13 09:36 | EXP.DC.SUM ---
General Admission date:: 11/10/22 HPI HPI HPI: Ms. De La Fuente is a pleasant 57-year-old female with history of mitral valve stenosis who underwent mitral valve replacement on 10/17 at [facility] in [place]. Was discharged home on 10/27. States her blood pressure has been low since her surgery and she has been monitored by home health nurse twice a week. Yesterday her metoprolol was stopped at the instruction of her computer support technician because her systolics were in the 80s. Went to her primary care office today because of weakness and for postop follow-up. Blood pressure again in the 80s and she was therefore sent to the ER for further evaluation. She has been feeling lightheaded, dizzy, weak. Continuing to take her medications as instructed including her diuretics. Denies any chest pain, shortness of breath, cough, syncope, confusion. On work-up in the ER, noted to have significant TRINI, supratherapeutic INR, and anemia. Cardiology consulted recommended admission. Medicine consulted for admission. After arriving to the floor, patient states she is feeling little better since starting IV fluids. Denies any fevers. Is not currently dizzy while laying flat. Has been taking her warfarin daily as prescribed. Denies any active bleeding or overt bleeding. Has felt significantly better since her surgery with her valve replacement. Hospital Course Hospital Course Hospital Course: Admitted for acute kidney injury and supratherapeutic INR, hyponatremia, hypochloremia, hyperkalemia. IV fluids were started and nephrotoxins were discontinued. Acute kidney injury and electrolyte abnormalities had resolved, INR returned to normal. Warfarin was resumed prior to discharge. She was also given a dose of weight-based Lovenox because of subtherapeutic INR. Metformin held on discharge due to elevated creatinine, K held due to hyperkalemia. On discharge it was noted the patient had a new petechial rash in bilateral lower extremities and slight decreased hgb. No evidence of blood loss and no symptoms. Would recommend evaluation of petechia. discussed close follow-up and work-up for this. Also discussed necessity of close follow-up of INR and renal function. Patient was agreeable. We will see her primary care physician in the next day or so. Exam Data for Last 24 hours Vital signs and Labs for Last 24 Hours: Temp Pulse Resp BP Pulse Ox 98.3 F 123 H 16 140/70 94 L 03/26/23 07:29 11/13/22 07:29 11/13/22 07:29 11/13/22 07:29 11/13/22 07:29 Laboratory Results - last 24 hr 11/12/22 01:28: Urine Color [place], Urine Appearance Sl cloudy, Urine pH 6.0, Ur Specific [place] <= 1.005, Urine Protein 1+, Urine Glucose (UA) 3+, Urine Ketones Negative, Urine Blood 3+, Urine Nitrate Negative, Urine Bilirubin Negative, Urine Urobilinogen 0.2, Ur Leukocyte Esterase 2+ A, Urine RBC 50-100, Urine WBC 20-50, Ur Squamous Epith Cells Occasional, Urine Bacteria 1+ 11/12/22 11:34: POC Glucose 252 H 11/12/22 16:17: POC Glucose 203 H 11/12/22 20:19: POC Glucose 225 H 11/13/22 05:56: POC Glucose 152 H 11/13/22 07:12: PT 24.4 H, INR 2.37 H 11/13/22 07:12: WBC 8.0 D, RBC 3.06 L, Hgb 8.7 L, Hct 27.9 L, MCV 91.0, MCH 28.4, MCHC 31.1 L, RDW 17.6 H, Plt Count 162, MPV 8.6, Neut % (Auto) 72.7, Lymph % (Auto) 17.1, [place] % (Auto) 7.6, Eos % (Auto) 2.2, Baso % (Auto) 0.4, Neut # (Auto) 5.8, Lymph # (Auto) 1.4, [place] # (Auto) 0.6, Eos # (Auto) 0.2, Baso # (Auto) 0.0 11/13/22 07:12: Sodium 131 L, Potassium 5.0, Chloride 96 L, Carbon Dioxide 27, Anion Gap 13.0, BUN 34 H D, Creatinine 1.60 H D, Estimated Creat Clear 57, Estimated GFR 33 L, Est GFR ( Amer) 40 L D, Glucose 134 H, Calcium 9.0, Phosphorus 2.9, Total Bilirubin 1.1, AST 28, ALT 17, Alkaline Phosphatase 152 H, Total Protein 7.6, Albumin 4.1, Globulin 3.5 H, Albumin/Globulin Ratio 1.2 I & O for Last 24 hours: Intake & Output 11/10/22 11/11/22 11/12/22 11/13/22 23:59 23:59 23:59 23:59 Intake Total 240 / 240 210
--- NOTE | 2022-11-14 13:11 | CARE MANAGER ---
I attempted post-discharge phone interview, no answer. Left message on machine.
--- NOTE | 2022-11-15 14:32 | CARE MANAGER ---
Contacted patient related to hospital discharge. She states she feels about the same. She has a couple tests to have done and follows up with Dr. Howard in a couple of days. Denies questions or concerns. EDUAR Barrett
== END 2022-11-13 10:33 | disposition home or self-care (01) | DRG 683 ==
LOC: ER 14:09 → 2ND 14:39
PROVIDERS: Nurse Practitioner Family; Student in an Organized Health Care Education/Training Program; Admitting Provider Internal Medicine Adolescent Medicine; Emergency Provider Emergency Medicine; PCP Family Medicine; Visit Provider Internal Medicine Adolescent Medicine
DX: N17.9 Acute kidney failure, unspecified (principal); E87.1 Hypo-osmolality and hyponatremia; E86.0 Dehydration; Z79.4 Long term (current) use of insulin; I25.10 Atherosclerotic heart disease of native coronary artery without angina pectoris; N18.9 Chronic kidney disease, unspecified; I34.0 Nonrheumatic mitral (valve) insufficiency; M81.0 Age-related osteoporosis without current pathological fracture; M06.9 Rheumatoid arthritis, unspecified; J43.9 Emphysema, unspecified; I48.0 Paroxysmal atrial fibrillation; E03.9 Hypothyroidism, unspecified; E11.22 Type 2 diabetes mellitus with diabetic chronic kidney disease; E11.40 Type 2 diabetes mellitus with diabetic neuropathy, unspecified; Z87.891 Personal history of nicotine dependence; I95.9 Hypotension, unspecified; Z79.01 Long term (current) use of anticoagulants; E87.5 Hyperkalemia; R79.1 Abnormal coagulation profile
CPT/HCPCS: 36415; 71045; 80048; 80053; 80076; 81001; 82962; 83605; 83735; 84100; 84484; 85025; 85610; 87040; 87086; 87088; 87186; 93005; 93306; 94640; 99291; C9803; J2405; U0003; U0005

== ENCOUNTER → 2022-11-14 14:00 | Outpatient (CLI) | payer MEDICARE, MEDICAID, SELFPAY ==
[2022-11-14 14:29] LABS: Microscopic, Urine URINE MICROSCOPIC (MICROSCOPIC)
[2022-11-14 14:34] LABS: Basophils % 0.3 % (0.1-2.0); Eosinophils % 0.5 % (0.1-12.0); Hematocrit 26.6 % (37.0-47.0); Hemoglobin 8.3 g/dL (12.2-16.2); Lymphocytes # 0.9 K/mm3 (0.7-4.5); Lymphocytes % 13.4 % (10-50); Mean Corpuscular HGB Conc 31.1 g/dL (31.8-35.4); Mean Corpuscular Hemoglobin 28.5 pg (27.0-31.2); Mean Corpuscular Volume 91.8 fl (81-99); Mean Platelet Volume 9.3 fl (7.4-10.4); Monocytes # 0.4 K/mm3 (0.1-1.0); Monocytes % 6.5 % (1.7-9.3); Neutrophils # 5.5 K/mm3 (1.8-7.8); Neutrophils % 79.3 % (37.0-80.0); Platelet Count 165 K/mm3 (142-424); Red Blood Count 2.89 M/mm3 (4.20-5.40); Red Cell Distribution Width 17.6 % (11.5-17.5); White Blood Count 6.9 K/mm3 (4.8-10.8)
[2022-11-14 14:46] LABS: Prothrombin Time 17.8 seconds (10.1-12.5)
[2022-11-14 14:54] LABS: Appearance,Urine CLEAR (Clear); Bilirubin,Urine Negative (Negative); Blood, Urine TRACE-L (Negative); Color,Urine YELLOW (Yellow); Glucose,Urine (UA) 3+ (Negative); Ketones,Urine Negative (Negative); Leukocyte Esterase,Urine Negative (Negative); Nitrate,Urine Negative (Negative); Protein,Urine Negative (Negative); Specific Gravity, Urine <= 1.005 (1.005-1.030); Urobilinogen,Urine 0.2 EU/dl (0.2)
[2022-11-14 15:02] LABS: Alanine Aminotransferase 16 U/L (12-78); Albumin Level 3.5 g/dl (3.5-5.0); Albumin/Globulin Ratio 1.1 (1.1-1.8); Alkaline Phosphatase 139 U/L (38-126); Anion Gap 14.7 mEq/L (5-15); Aspartate Amino Transferase 27 U/L (14-36); Bilirubin,Total 1.6 mg/dl (0.2-1.3); Blood Urea Nitrogen 34 mg/dl (7-17); Calcium 8.4 mg/dl (8.4-10.2); Carbon Dioxide 22 mmol/L (22.0-30.0); Chloride 94 mmol/L (98-107); Estimated Glomerular Filt Rate 31 ml/min (>60); GFR (African American) 38 ML/MIN (>60); Globulin 3.1 g/dL (1.3-3.2); Glucose 208 mg/dl (74-100); Potassium 4.7 mmoL/L (3.5-5.1); Sodium 126 mmol/L (136-145); Total Protein,Serum 6.6 g/dl (6.3-8.2)
[2022-11-14 15:15] LABS: RBC,Urine Occasional #/hpf (0-3); Squamous Epithelial Cell,Urine Occasional #/hpf (0-5); WBC,Urine Occasional #/hpf (0-3)
[2022-11-14 16:08] LABS: Iron 23 ug/dL (37-170); Vitamin B12 407 pg/mL (239-931)
[2022-11-14 16:12] LABS: Folate 7.67 ng/mL
[2022-11-14 16:18] LABS: Total Iron Binding Capacity 406 ug/dL (265-497)
== END ==
PROVIDERS: PCP Family Medicine; Visit Provider Family Medicine
DX: D64.9 Anemia, unspecified (principal); I95.9 Hypotension, unspecified; N17.9 Acute kidney failure, unspecified; E87.1 Hypo-osmolality and hyponatremia; R79.1 Abnormal coagulation profile; Z95.2 Presence of prosthetic heart valve
CPT/HCPCS: 80053; 81001; 82607; 82746; 83540; 83550; 85025; 85610

== ENCOUNTER → 2022-11-16 08:56 | Outpatient (CLI) | payer MEDICARE, MEDICAID, SELFPAY ==
[2022-11-16 09:14] LABS: Occult Blood,Stool Negative (Negative)
== END ==
PROVIDERS: PCP Family Medicine; Visit Provider Family Medicine
DX: K92.1 Melena (principal)
CPT/HCPCS: 82272; G0328

== ENCOUNTER → 2022-11-18 14:29 | Outpatient (CLI) | payer MEDICARE, MEDICAID, SELFPAY ==
[2022-11-18 14:58] LABS: Basophils % 0.7 % (0.1-2.0); Eosinophils # 0.1 K/mm3 (0.0-0.4); Eosinophils % 2.4 % (0.1-12.0); Hematocrit 28.8 % (37.0-47.0); Hemoglobin 8.6 g/dL (12.2-16.2); Lymphocytes # 1.1 K/mm3 (0.7-4.5); Lymphocytes % 24.3 % (10-50); Mean Corpuscular HGB Conc 29.8 g/dL (31.8-35.4); Mean Corpuscular Hemoglobin 28.4 pg (27.0-31.2); Mean Corpuscular Volume 95.4 fl (81-99); Mean Platelet Volume 8.7 fl (7.4-10.4); Monocytes # 0.5 K/mm3 (0.1-1.0); Monocytes % 10.6 % (1.7-9.3); Neutrophils # 2.7 K/mm3 (1.8-7.8); Neutrophils % 62.1 % (37.0-80.0); Platelet Count 209 K/mm3 (142-424); Red Blood Count 3.02 M/mm3 (4.20-5.40); Red Cell Distribution Width 17.8 % (11.5-17.5); White Blood Count 4.4 K/mm3 (4.8-10.8)
[2022-11-18 15:20] LABS: INR 1.47 (0.9-1.1); Prothrombin Time 15.5 seconds (10.1-12.5)
== END ==
PROVIDERS: PCP Family Medicine; Visit Provider Family Medicine
DX: I95.9 Hypotension, unspecified (principal); I25.10 Atherosclerotic heart disease of native coronary artery without angina pectoris; D62 Acute posthemorrhagic anemia
CPT/HCPCS: 85025; 85610

== ENCOUNTER 2022-11-22 11:46 | Emergency (ER) | payer MEDICARE, MEDICAID, SELFPAY ==
[2022-11-22 11:48] VITALS: BP 88/55; PULSE 93; RESP 17; TEMP 36.4; O2SAT 91; BMI 37.5
[2022-11-22 12:00] VITALS: BP 95/54; PULSE 89; O2SAT 94
--- NOTE | 2022-11-22 12:06 | XR_ITS ---
FINAL REPORT CLINICAL HISTORY: dyspnea COMPARISON: 11/10/2022 FINDINGS: SINGLE-VIEW CHEST There is mild cardiomegaly. The patient is status post median sternotomy. There are mild chronic changes at the bases with small right effusion. There is no pneumothorax. IMPRESSION: Small right effusion. Reviewed, Interpreted and Dictated by Shahid Diana MD Transcribed by Ronna Jerome Authenticated and [facility]
--- NOTE | 2022-11-22 12:09 | HMH.EDGENADL ---
Discharge Plan Disposition Patient Disposition: Home, Self-Care Condition: Fair Prescriptions Prescriptions: New bumetanide 1 mg tablet 1 mg PO DAILY Qty: 14 0RF No Action calcitriol 0.5 mcg capsule 0.5 mcg PO DAILY Trulance 3 mg tablet 3 mg PO DAILY rosuvastatin 20 mg tablet 20 mg PO DAILY metformin 500 mg tablet extended release 24 hr 500 mg PO DAILY Hold Instructions: Resume on 11/20/22. hold until outpatient eval by pcp famotidine 40 mg tablet 40 mg PO BID Nurtec ODT 75 mg tablet,disintegrating 75 mg PO Q OTHER DAY PRN (Reason: Migraine Headache) dapagliflozin 10 mg tablet 10 mg PO DAILY albuterol sulfate 90 mcg/actuation HFA aerosol inhaler 2 puff inhalation Q4HP PRN (Reason: Shortness Of Breath) oxycodone-acetaminophen [Percocet] 5-325 mg tablet 1 tab PO TIDP PRN (Reason: Moderate Pain (Scale Score 5-6)) rotigotine 2 mg/24 hour patch 24 hour 2 mg transdermal DAILY MDD 2 mg Qty: 30 3RF Rx Instructions: As directed pantoprazole 40 mg tablet,delayed release (DR/EC) 40 mg PO DAILY albuterol sulfate 2.5 mg /3 mL (0.083 %) solution for nebulization 2.5 mg inhalation Q4HP PRN (Reason: Shortness Of Breath) insulin lispro 100 unit/mL insulin pen 30 unit SQ TID insulin glargine [Basaglar KwikPen U-100 Insulin] 100 unit/mL (3 mL) insulin pen 40 unit SQ DAILY ferrous sulfate [Feosol] 325 mg (65 mg iron) tablet 325 mg PO TID 30 Days Qty: 90 0RF spironolactone [Aldactone] 25 mg tablet 25 mg PO DAILY Anoro Ellipta 62.5-25 mcg/actuation blister with device 1 inh inhalation DAILY duloxetine 60 mg Capsule,Delayed Release(Dr/Ec) 60 mg PO DAILY torsemide 20 mg tablet 20 mg PO BID Label Comments: TAKE 1 TABLET BY MOUTH 2 TIMES DAILY. tizanidine 4 mg tablet 4 mg PO TID imipramine HCl 25 mg tablet 75 mg PO HS Label Comments: TAKE 3 TABLETS BY MOUTH AT BEDTIME. gabapentin 800 mg tablet 800 mg PO TID Label Comments: TAKE 1 TABLET BY MOUTH 4 TIMES DAILY. warfarin 4 mg tablet 4 mg PO DAILY Label Comments: TAKE 1 TABLET BY MOUTH ONCE DAILY Referrals Follow up/Referrals: Melva Howard DO [Primary Care Provider] - See instructions Clinical Impressions Clinical Impression: Chronic kidney disease (CKD), Edema, peripheral Instructions Patient Instructions: Chronic Kidney Disease, Edema Print Language Print Language: Indonesian Discharge ED Provider: Ferny Astudillo General Adult HPI General Chief complaint: Extremity Problem,Nontraumatic Stated complaint: retaining fluid Time Seen by Provider: 11/22/22 14:43 Mode of Arrival: Wheelchair Source of Information: Patient Limitations: No Limitations Description of Symptoms (Recalled from ER Triage Doc. by RN): pt to ED with bilateral lower leg edema x 3 days. pt reports recently being admitted for fluid retention and being d/c about a week ago. pt reports her PCP took her off her latex due to hypotension. History of Present Illness HPI narrative: Patient presents to the emergency department shortness of breath, lower extremity edema. She recently had multiple valves replaced at [facility]. She is currently on Coumadin. Comes in today after just being admitted and discharged for fluid retention. She states that she was recently taken off of Lasix as she was hypotensive. She denies any significant chest pain. She also denies any recent cough, congestion, fever or chills. Related Data Home Medications Medication Instructions Recorded Confirmed calcitriol 0.5 mcg capsule 0.5 mcg PO DAILY Supplement 06/08/22 11/11/22 famotidine 40 mg tablet 40 mg PO BID GERD 06/08/22 11/10/22 metformin 500 mg tablet,extended 500 mg PO DAILY Diabetes 06/08/22 11/10/22 release 24 hr plecanatide 3 mg tablet (Trulance) 3 mg PO DAILY CONSTIPATION 06/08/22 11/10/22 rosuvastatin 20 mg tablet 20
[2022-11-22 12:13] LABS: Basophils % 0.7 % (0.1-2.0); Eosinophils # 0.1 K/mm3 (0.0-0.4); Eosinophils % 1.7 % (0.1-12.0); Hematocrit 27.4 % (37.0-47.0); Hemoglobin 8.3 g/dL (12.2-16.2); Lymphocytes # 1.3 K/mm3 (0.7-4.5); Lymphocytes % 26.3 % (10-50); Mean Corpuscular HGB Conc 30.5 g/dL (31.8-35.4); Mean Platelet Volume 8.3 fl (7.4-10.4); Monocytes # 0.4 K/mm3 (0.1-1.0); Monocytes % 8.7 % (1.7-9.3); Neutrophils % 62.7 % (37.0-80.0); Platelet Count 258 K/mm3 (142-424); Red Blood Count 2.98 M/mm3 (4.20-5.40); Red Cell Distribution Width 17.7 % (11.5-17.5); White Blood Count 4.8 K/mm3 (4.8-10.8)
[2022-11-22 12:14] LABS: Chloride 95 mmol/L (98-107)
[2022-11-22 12:15] LABS: Potassium 3.9 mmoL/L (3.5-5.1)
[2022-11-22 12:17] LABS: Alanine Aminotransferase 14 U/L (12-78); Alkaline Phosphatase 132 U/L (38-126); Aspartate Amino Transferase 25 U/L (14-36); Bilirubin,Total 0.7 mg/dl (0.2-1.3); Blood Urea Nitrogen 49 mg/dl (7-17); Creatinine Clearance Estimated 35 mL/min (50-200); Estimated Glomerular Filt Rate 18 ml/min (>60); GFR (African American) 22 ML/MIN (>60)
[2022-11-22 12:18] LABS: Albumin Level 3.5 g/dl (3.5-5.0); Calcium 8.6 mg/dl (8.4-10.2); Carbon Dioxide 23 mmol/L (22.0-30.0); Globulin 3.5 g/dL (1.3-3.2); Glucose 200 mg/dl (74-100)
[2022-11-22 12:27] LABS: NT Pro Brain Natriuretic Pep. 4390 pg/mL (0-125)
--- NOTE | 2022-11-22 12:29 | ECG_ITS ---
APPROVED REPORT Exam: Resting ECG HR:86 bpm ECG Measurements Heart Rate 86 AXES QRSd 91 QRS 72 QT 377 T 0 QTc 421 Conclusion ATRIAL FLUTTER/TACHYCARDIA LOW QRS VOLTAGE IN PRECORDIAL LEADS [QRS DEFLECTION < 1.0 mV IN CHEST LEADS] NONSPECIFIC T-WAVE ABNORMALITY ABNORMAL RHYTHM ECG UNCONFIRMED REPORT Electronically signed by : Juan J Wynn MD 11/22/2022 21:14:39
[2022-11-22 12:30] LABS: Troponin I 0.03 ng/ml (0.00-0.034)
[2022-11-22 12:31] LABS: INR 1.52 (0.9-1.1)
[2022-11-22 12:32] VITALS: BP 89/52; PULSE 96; O2SAT 93
--- NOTE | 2022-11-22 13:39 | PC.NURSE ---
1300-ER spoke with hospitalist. ER MD reports hospitalist declined admission.
[2022-11-22 14:23] VITALS: BP 101/60; PULSE 90; O2SAT 97
--- NOTE | 2022-11-22 14:35 | PC.NURSE ---
Contacted [facility] for possible patient transfer; awaiting for call back.
--- NOTE | 2022-11-22 14:48 | PC.NURSE ---
pt refusing to go to [facility] per ER , [facility] has been notified. Patient is being discharged home
[2022-11-22 14:50] LABS: Anion Gap 13.9 mEq/L (5-15); Sodium 128 mmol/L (136-145)
[2022-11-22 15:21] VITALS: BP 139/80; PULSE 79; RESP 18; TEMP 36.6; O2SAT 95
== END 2022-11-22 15:21 | disposition home or self-care (01) ==
PROVIDERS: Emergency Provider Emergency Medicine; PCP Family Medicine
DX: N18.9 Chronic kidney disease, unspecified; R22.43 Localized swelling, mass and lump, lower limb, bilateral; R06.02 Shortness of breath
CPT/HCPCS: 71045; 80053; 83880; 84484; 85025; 85610; 93005

== ENCOUNTER 2022-11-25 13:48 | Inpatient (IN) | payer MEDICARE, MEDICAID, SELFPAY ==
[2022-11-25] VITALS (13 sets, daily range): BP systolic 90–107; BP diastolic 55–71; PULSE 73–100; RESP 13–26; TEMP 36.6–36.9; O2SAT 95–99; BMI 30.1; BMI 38.2
--- NOTE | 2022-11-25 13:59 | XR_ITS ---
FINAL REPORT CLINICAL HISTORY: falls, pain COMPARISON: 11/22/2022 FINDINGS: There is mild to moderate cardiomegaly. There are multiple mediastinal wires noted. There is cervical fusion hardware in the lower cervical spine. There is a small to moderate right pleural effusion with overlying atelectasis. Findings are more evident on the prior study. There is no pneumothorax. There is no osseous abnormality. IMPRESSION: Small to moderate right pleural effusion with overlying atelectasis. Reviewed, Interpreted and Dictated by Shahid Diana MD Transcribed by Le Snowden Authenticated and [facility]
--- NOTE | 2022-11-25 13:59 | XR_ITS ---
FINAL REPORT CLINICAL HISTORY: falls, pain COMPARISON: None FINDINGS: SINGLE VIEW PELVIS: A single view of the pelvis was obtained. The film is under penetrated. There is no acute fracture or dislocation. Visualized joint spaces are normally aligned. Soft tissues are unremarkable. Pelvic stimulator device is noted. IMPRESSION: No acute bony abnormality. Reviewed, Interpreted and Dictated by Shahid Diana MD Transcribed by Le Snowden Authenticated and . [facility]
--- NOTE | 2022-11-25 14:00 | CT_ITS ---
FINAL REPORT TECHNIQUE: Axial CT images were performed through the head. Coronal reformatted images were submitted. This study was performed with techniques to keep radiation doses as low as reasonably achievable (ALARA). Individualized dose reduction techniques using automated exposure control or adjustment of mA and/or kV according to the patient's size were employed. CLINICAL HISTORY: falls, pain, hit head COMPARISON: 09/02/2022 FINDINGS: The ventricles are normal in size. There is no evidence of hemorrhage. There is no mass or edema identified. There is no abnormal extra-axial fluid seen. The sinuses are well aerated. IMPRESSION: No acute intracranial process. Reviewed, Interpreted and Dictated by Shahid Diana MD Transcribed by Le Snowden Authenticated and [facility]
--- NOTE | 2022-11-25 14:00 | CT_ITS ---
FINAL REPORT TECHNIQUE: Axial images were obtained of the cervical spine by computed tomography. Coronal and sagittal reconstruction process performed. This study was performed with techniques to keep radiation doses as low as reasonably achievable (ALARA). Individualized dose reduction techniques using automated exposure control or adjustment of mA and/or kV according to the patient''s size were employed. CLINICAL HISTORY: falls, pain, hit head COMPARISON: 09/02/2022 FINDINGS: There is anterior and interbody fusion at C5-6. Anterior osteophytes formation at the C4-5 and C6-7 levels. There is no malalignment. The facets are properly aligned. No fracture identified. IMPRESSION: No acute process. Reviewed, Interpreted and Dictated by Shahid Diana MD Transcribed by Le Snowden Authenticated and [facility]
--- NOTE | 2022-11-25 14:19 | ECG_ITS ---
APPROVED REPORT Exam: Resting ECG HR:85 bpm ECG Measurements Heart Rate 85 AXES QRSd 93 QRS 66 QT 407 T 89 QTc 449 Conclusion ATRIAL FLUTTER/TACHYCARDIA LOW QRS VOLTAGE IN PRECORDIAL LEADS [QRS DEFLECTION < 1.0 mV IN CHEST LEADS] ABNORMAL RHYTHM ECG UNCONFIRMED REPORT Electronically signed by : Juan J Wynn MD 11/25/2022 17:00:57
[2022-11-25 14:21] LABS: Microscopic, Urine URINE MICROSCOPIC (MICROSCOPIC)
[2022-11-25 14:22] LABS: Appearance,Urine CLEAR (Clear); Blood, Urine Negative (Negative); Color,Urine YELLOW (Yellow); Glucose,Urine (UA) 1+ (Negative); Ketones,Urine Negative (Negative); Leukocyte Esterase,Urine Negative (Negative); Nitrate,Urine Negative (Negative); PH,Urine 5.5 (5.0-8.5); Protein,Urine 1+ (Negative); Specific Gravity, Urine 1.025 (1.005-1.030); Urobilinogen,Urine 0.2 EU/dl (0.2)
[2022-11-25 14:23] LABS: Bacteria,Urine Trace /lpf; Squamous Epithelial Cell,Urine Occasional #/hpf (0-5)
[2022-11-25 14:28] LABS: Bilirubin,Urine 1+ (Negative)
[2022-11-25 14:32] LABS: Chloride 94 mmol/L (98-107); Potassium 4.4 mmoL/L (3.5-5.1); Sodium 129 mmol/L (136-145)
[2022-11-25 14:34] LABS: Activated Partial Thrombo Time 31.6 seconds (22.8-30.6); INR 1.31 (0.9-1.1); Prothrombin Time 13.9 seconds (10.1-12.5)
[2022-11-25 14:35] LABS: Alanine Aminotransferase 13 U/L (12-78); Albumin Level 3.7 g/dl (3.5-5.0); Alkaline Phosphatase 131 U/L (38-126); Anion Gap 15.4 mEq/L (5-15); Aspartate Amino Transferase 29 U/L (14-36); Bilirubin,Total 0.6 mg/dl (0.2-1.3); Blood Urea Nitrogen 68 mg/dl (7-17); Calcium 8.6 mg/dl (8.4-10.2); Carbon Dioxide 24 mmol/L (22.0-30.0); Estimated Glomerular Filt Rate 17 ml/min (>60); GFR (African American) 21 ML/MIN (>60); Globulin 3.7 g/dL (1.3-3.2); Glucose 152 mg/dl (74-100); Lipase 19 U/L (23-300); Magnesium 1.9 mg/dl (1.6-2.3); Total Protein,Serum 7.4 g/dl (6.3-8.2)
[2022-11-25 14:45] LABS: NT Pro Brain Natriuretic Pep. 3420 pg/mL (0-125)
[2022-11-25 14:48] LABS: Troponin I 0.02 ng/ml (0.00-0.034)
--- NOTE | 2022-11-25 14:49 | CT_ITS ---
FINAL REPORT TECHNIQUE: Axial images through the abdomen and pelvis were performed without contrast. This study was performed with techniques to keep radiation doses as low as reasonably achievable, (ALARA). Individualized dose reduction techniques using automated exposure control or adjustment of mA and/or kV according to the patient's size were employed. CLINICAL HISTORY: falls, pain, lower tenderness, constipation COMPARISON: CT abdomen 08/26/2022 FINDINGS: Abdomen: The liver has a nodular peripheral contour consistent with cirrhosis. The gallbladder is absent. The spleen measures 15 cm in craniocaudal dimension. The pancreas, adrenals and kidneys are unremarkable. There is moderate ascites throughout the upper abdomen. Varices are seen throughout the upper abdomen. Small lymph nodes are seen throughout the root of the mesentery. There is moderate body wall edema. Pelvis: There is moderate ascites in the pelvis. The of [place] balloon is noted within the urinary bladder. The appendix is not visualized. There is no pelvic mass or inflammation. There is streak artifact from pelvic stimulator. IMPRESSION: Changes of cirrhosis and portal hypertension with splenomegaly and varices. Body wall edema. No acute process. Reviewed, Interpreted and Dictated by Shahid Diana MD Transcribed by Le Snowden Authenticated and [facility]
--- NOTE | 2022-11-25 14:49 | CT_ITS ---
FINAL REPORT TECHNIQUE: Axial images were obtained through the chest without contrast. CLINICAL HISTORY: pain, frequent falls COMPARISON: 06/15/2022 FINDINGS: The heart size is normal. There are postoperative changes from prior sternotomy. There is no pericardial effusion. There is a moderate right effusion with right lower lobe consolidation. There are hazy ground-glass opacities in the bilateral lungs. There is mild generalized body wall edema. IMPRESSION: Moderate right effusion with right lower lobe consolidation. Hazy ground-glass opacities bilateral lungs. Reviewed, Interpreted and Dictated by Shahid Diana MD Transcribed by Le Snowden Authenticated and [facility]
--- NOTE | 2022-11-25 14:55 | HMH.EDGENADL ---
Discharge Plan Disposition Patient Disposition: Admitted As Inpatient Condition: Good Clinical Impressions Clinical Impression: Acute kidney injury superimposed on CKD, Pleural effusion on right, Generalized weakness, Falls frequently, Acute urinary retention Constipation Qualifiers: Constipation type: unspecified constipation type Qualified Code(s): K59.00 - Constipation, unspecified Discharge ED Provider: Harleen Reyes General Adult HPI General Chief complaint: Weakness Stated complaint: fall Time Seen by Provider: 11/25/22 13:48 History of Present Illness HPI narrative: This patient is a 57-year-old female who reports a recent history of open heart surgery for valve replacement at [facility], CKD, CHF, COPD, chronic constipation, hypertension, hyperlipidemia, diabetes, CAD, and chronic anticoagulation on Coumadin presenting to the emergency department for evaluation of generalized weakness and frequent falls. She states that today, she has been feeling lightheaded. She states that she has fallen multiple times because of her lightheadedness. She states that she has hit her head, but did not lose consciousness. She mostly complains of tailbone pain at this time. She said that she has not had a bowel movement in several days and has not been able to urinate at all today. She denies any fevers, chills, chest pain, shortness of breath, nausea, vomiting, or other concerns. She does note lower extremity swelling, but she states that this is stable. Related Data Home Medications Medication Instructions Recorded Confirmed calcitriol 0.5 mcg capsule 0.5 mcg PO DAILY Supplement 06/08/22 11/11/22 famotidine 40 mg tablet 40 mg PO BID GERD 06/08/22 11/10/22 metformin 500 mg tablet,extended 500 mg PO DAILY Diabetes 06/08/22 11/10/22 release 24 hr plecanatide 3 mg tablet (Trulance) 3 mg PO DAILY CONSTIPATION 06/08/22 11/10/22 rosuvastatin 20 mg tablet 20 mg PO DAILY Cholesterol 06/08/22 11/10/22 albuterol sulfate 90 mcg/actuation 2 puff inhalation Q4HP PRN 06/30/22 11/11/22 aerosol inhaler Shortness Of Breath dapagliflozin 10 mg tablet 10 mg PO DAILY Diabetes 06/30/22 11/10/22 oxycodone-acetaminophen 5 mg-325 1 tab PO TIDP PRN Moderate Pain 09/06/22 11/11/22 mg tablet (Percocet) (Scale Score 5-6) rimegepant 75 mg disintegrating 75 mg PO Q OTHER DAY PRN Migraine 09/06/22 11/10/22 tablet (Nurtec ODT) Headache spironolactone 25 mg tablet 25 mg PO DAILY Fluid 09/15/22 11/10/22 (Aldactone) umeclidinium 62.5 mcg-vilanterol 1 inh inhalation DAILY COPD 09/15/22 11/10/22 25 mcg/actuation powdr for inhalation (Anoro Ellipta) albuterol sulfate 2.5 mg/3 mL 2.5 mg inhalation Q4HP PRN 11/10/22 11/11/22 (0.083 %) solution for nebulization Shortness Of Breath duloxetine 60 mg capsule,delayed 60 mg PO DAILY Diabetic Neuropathy 11/10/22 11/11/22 release insulin glargine 100 unit/mL (3 40 unit SQ DAILY Diabetes 11/10/22 11/10/22 mL) subcutaneous pen (Basilio Moyer U-100 Insulin) insulin lispro 100 unit/mL 30 unit SQ TID Diabetes 11/10/22 11/10/22 subcutaneous pen pantoprazole 40 mg tablet,delayed 40 mg PO DAILY Acid reflux 11/10/22 11/10/22 release gabapentin 800 mg tablet 800 mg PO TID Pain 11/11/22 11/11/22 imipramine HCl 25 mg tablet 75 mg PO HS MOOD 11/11/22 11/11/22 tizanidine 4 mg tablet 4 mg PO TID MUSCLE SPASMS 11/11/22 11/11/22 torsemide 20 mg tablet 20 mg PO BID Fluid 11/11/22 11/11/22 warfarin 4 mg tablet 4 mg PO DAILY PROSTHETIC VALVE 11/11/22 11/11/22 Previous Rx's Medication Instructions Recorded rotigotine 2 mg/24 hour 2 mg transdermal DAILY RLS #30 ea 09/20/22 transdermal 24 hour patch ferrous sulfate 325 mg (65 mg 325 mg PO TID 30 days #90 tabs 11/16/22 iron) tablet (Feosol) bumetanide 1 mg tablet 1 mg PO DAILY #14 tabs 11/22/22 Allergies Allergy/AdvReac Type Severity Reaction Status Date / Time acetaminophen Allergy Intermediate Other Verified 11/14/22 13:08 semaglutide Allergy
[2022-11-25 14:58] LABS: Basophils % 0.6 % (0.1-2.0); Eosinophils # 0.1 K/mm3 (0.0-0.4); Hematocrit 30.4 % (37.0-47.0); Hemoglobin 8.8 g/dL (12.2-16.2); Lymphocytes # 1.6 K/mm3 (0.7-4.5); Lymphocytes % 23.8 % (10-50); Mean Corpuscular HGB Conc 28.8 g/dL (31.8-35.4); Mean Corpuscular Hemoglobin 26.6 pg (27.0-31.2); Mean Corpuscular Volume 92.4 fl (81-99); Mean Platelet Volume 7.5 fl (7.4-10.4); Monocytes # 0.3 K/mm3 (0.1-1.0); Neutrophils # 4.5 K/mm3 (1.8-7.8); Neutrophils % 69.7 % (37.0-80.0); Platelet Count 230 K/mm3 (142-424); Red Blood Count 3.29 M/mm3 (4.20-5.40); Red Cell Distribution Width 17.6 % (11.5-17.5); White Blood Count 6.5 K/mm3 (4.8-10.8)
--- NOTE | 2022-11-25 15:03 | PC.NURSE ---
Pt updated on plan of care. Asking for oral fluids; instructed to wait until radiology completion. Pt verbalizes understanding.
[2022-11-25 15:34] LABS: Coronavirus 19, PCR Not Detected (NotDetected); Influenza A, PCR Not Detected (NotDetected); Influenza B, PCR Not Detected (NotDetected)
--- NOTE | 2022-11-25 16:54 | PC.NURSE ---
speaking to hospitalist for admit
--- NOTE | 2022-11-25 17:06 | PC.NURSE ---
Pt updated on plan of care. Ice chips provided.
--- NOTE | 2022-11-25 17:08 | PC.NURSE ---
spoke to house for pt admission
--- NOTE | 2022-11-25 17:20 | EXP.HP ---
History of Present Illness *Admission Date: 11/25/22 *Reason for visit:: generalized weakness *History of present illness: Ms. De La Fuente is a 57 year old female with a past medical history of mitral valve replacement with a bioprosthetic valve, atrial fibrillation on coumadin, mild nonocclusive CAD (per [facility] in 08/2022), CHF? (on bumex 1mg daily), COPD, CKD, degenerative disc disease, GERD, IBS, hypothyroidism, type 2 diabetes mellitus, normocytic anemia presents because of generalized weakness. She states that she has been eating and drinking well but today has a creatinine level of 2.8, it was 1.7 on 11/14/22. She has been taking a diuretic. She normally ambulates with a walker but since last night has been too weak to get out of bed. She also states she has had some dyspnea. She denies chest pain, cough, fever, abdominal pain, diarrhea and dysuria. Initial vitals: BP 98/62 - P 76 - RR 20 - T 98.4 degrees F - SpO2 96% RA Initial workup: INR 1.3, CMP with na 129, BUN 68, cr 2.8 (Cr 1.7 on 11/14/22), ProBNP 3420, albumin 1.[address]- Moderate right effusion with right lower lobe consolidation. Hazy ground-glass opacities bilateral lungs. abd/pel ct- Changes of cirrhosis and portal hypertension with splenomegaly and varices.? ? Body wall edema.? ? No acute process. Head ct - no acute intracranial process c-spine ct - no acute process pelvis xr - no acute bony abnormality echo from 11/11/22 - 1.? Biatrial enlargement, normal left ventricular size, estimated ejection fraction 55% with no regional wall motion abnormality, diastolic parameters are inconclusive. 2.? Mildly enlarged right ventricle with normal contractility. 3.? Bioprosthetic valve in the mitral position, mean gradient across the valve is 8 mmHg, however the valve area is 3.7 cm??? by pressure half-time, there is no significant mitral regurgitation.? The increased velocities across the mitral valve is likely secondary to increased left atrial volume. 4.? Mild tricuspid regurgitation. 5.? No significant pericardial effusion noted. 6.? Inferior vena cava is poorly visualized. ED medications: LR bolus 500mL, tylenol 1g, zofran 4mg, morphine iv 4mg PFSH PFSH Disclaimer: The information contained in this section may have been updated after the patient was seen, as this information can be updated by other users. Medical History Abdominal distention Abdominal pain Abnormal result of cardiovascular function study Acute bronchitis Acute dyspnea Anemia Arthritis Back pain with history of spinal surgery CAD (coronary artery disease) Cervical dysphagia Chest pain Chest pain CHF (congestive heart failure) CKD (chronic kidney disease) COPD mixed type DDD (degenerative disc disease) Dehydration Dyspnea on exertion Elevated troponin Falling GERD (gastroesophageal reflux disease) Hepatomegaly Hoarseness or changing voice Hypokalemia Hyponatremia Hypothyroidism Irritable bowel syndrome Knee pain, left Knee sprain Left foot pain Mitral regurgitation Mitral valve insufficiency Nausea and vomiting Near syncope Neuropathy OAB (overactive bladder) Osteoporosis Otitis media PAF (paroxysmal atrial fibrillation) Polyp of vocal cord Pulmonary emphysema Pulmonary emphysema Pulmonary nodule Recurrent acute otitis media Reflux esophagitis Rheumatoid arthritis Right knee pain Smoking greater than 30 pack years Sprain of other part of right wrist and hand, initial encounter Tobacco abuse disorder Tobacco use Typical angina Uncontrolled diabetes mellitus URI (upper respiratory infection) Vitamin B12 deficiency Vitamin D deficiency Surgical History Heart valve replaced History of appendectomy History of cholecystectomy History of colonoscopy History of ear surgery History of tonsillectomy History of total hysterectomy History of tubal ligation Family History (Reviewed
--- NOTE | 2022-11-25 18:22 | PC.NURSE ---
Report provided to EDUAR Rosa
--- NOTE | 2022-11-25 18:30 | PC.NURSE ---
Pt updated on plan of care. Report provided to inpatient. No complaints at this time. Personal belongings at bedside.
--- NOTE | 2022-11-25 20:34 | PC.NURSE ---
RECEIVED PHONE REPORT FROM DAMIEN RN/ED NURSE AT 2019. PATIENT TO BE ADMITTED TO 213. ADM DX:GENERALIZED WEAKNESS/TRINI/CHF/PLEURAL EFFUSION RLL.
--- NOTE | 2022-11-25 20:35 | PC.NURSE ---
Called 2nd floor to check on status of pt being taken to room 213 and Rand stated she had never nor the charge nurse had not received report. This RN gave report to Rand RN on Ms Sudhakar and 2nd floor techs made aware that pt is ready to be brought to room 213.
--- NOTE | 2022-11-25 20:49 | PC.NURSE ---
staff at bedside to take pt to 2nd floor
--- NOTE | 2022-11-25 20:53 | PC.NURSE ---
PT ARRIVED TO FLOOR AT THIS TIME
[2022-11-25 22:12] LABS: POC Glucose,Bedside 175 (70-110)
[2022-11-26] VITALS (7 sets, daily range): BP systolic 96–116; BP diastolic 47–74; PULSE 77–107; RESP 16–20; TEMP 36.4–36.7; O2SAT 96–99; BMI 38.5
--- NOTE | 2022-11-26 04:22 | PC.NURSE ---
PATIENT HAS RESTED WELL SINCE ADMISSION. DIABETIC DIET. VSS/AFEBRILE.. DENIES PAIN/SOA/DISCOMFORT. REMAINS WEAK REQUIRING ASSIST TO BSC.
[2022-11-26 05:23] LABS: POC Glucose,Bedside 149 (70-110)
--- NOTE | 2022-11-26 08:25 | P.PN_ITS ---
Subjective *Date: 11/26/22 *Time: 08:54 Interval history: undocumented urine output INR is 1.35 Na increased 129 ->131 BUN increased 68->66 Cr increased from 2.8 ->3.2 hgb a1c 10.8 urine culture is pending Exam Data for Last 24 hours Vital signs and Labs for Last 24 Hours: Temp Pulse Resp BP Pulse Ox 97.8 F 107 H 20 108/64 L 96 11/26/22 08:00 11/26/22 08:00 11/26/22 08:00 11/26/22 08:00 11/26/22 08:00 Laboratory Results - last 24 hr 11/25/22 14:15: Urine Color Yellow, Urine Appearance Clear, Urine pH 5.5, Ur Sp ecific [place] 1.025, Urine Protein 1+, Urine Glucose (UA) 1+, Urine Ketones Negative, Urine Blood Negative, Urine Nitrate Negative, Urine Bilirubin 1+ A, Urine Urobilinogen 0.2, Ur Leukocyte Esterase Negative, Urine RBC None, Urine WBC None, Ur Squamous Epith Cells Occasional, Urine Bacteria Trace 11/25/22 14:15: WBC 6.5, RBC 3.29 L, Hgb 8.8 L, Hct 30.4 L, MCV 92.4, MCH 26.6 L , MCHC 28.8 L, RDW 17.6 H, Plt Count 230, MPV 7.5, Neut % (Auto) 69.7, Lymph % (Auto) 23.8, [place] % (Auto) 5.0, Eos % (Auto) 1.0, Baso % (Auto) 0.6, Neut # (Auto) 4.5, Lymph # (Auto) 1.6, [place] # (Auto) 0.3, Eos # (Auto) 0.1, Baso # (Auto) 0.0 11/25/22 14:15: PT 13.9 H, INR 1.31 H, APTT 31.6 H 11/25/22 14:15: Sodium 129 L, Potassium 4.4, Chloride 94 L, Carbon Dioxide 24, Anion Gap 15.4 H, BUN 68 H, Creatinine 2.80 H, Estimated GFR 17 L*, Est GFR ( Amer) 21 L, Glucose 152 H, Calcium 8.6, Magnesium 1.9, Total Bilirubin 0.6, AST 29, ALT 13, Alkaline Phosphatase 131 H, Troponin I 0.02, NT-Pro-B Natriuret Pep 3420 H, Total Protein 7.4, Albumin 3.7, Globulin 3.7 H, Albumin/Globulin Ratio 1.0 L, Lipase 19 L 11/25/22 15:31: SARS-CoV-2 (PCR) Not detected, Influenza A Untype (PCR) Not detected, Influenza Type B (PCR) Not detected 11/25/22 21:56: POC Glucose 175 H 11/26/22 05:14: POC Glucose 149 H I & O for Last 24 hours: Intake & Output 11/23/22 11/24/22 11/25/22 11/26/22 23:59 23:59 23:59 23:59 Intake Total 460 / 460 500 / 500 Output Total Balance 460 / 460 499 / 499 Weight 97.795 kg 98.475 kg Assessment and Plan *Assessment and plan (1) Acute kidney injury superimposed on CKD: Status: Acute Category: Medical Code(s): N17.9 - Acute kidney failure, unspecified; N18.9 - Chronic kidney disease, unspecified (2) Generalized weakness: Status: Acute Category: Medical Code(s): R53.1 - Weakness (3) Supratherapeutic INR: Status: Acute Category: Medical Code(s): R79.1 - Abnormal coagulation profile Plan #TRINI on CKD #subtherapeutic INR #mitral valve replacement with bioprosthetic valve #atrial fibrillation #type 2 dm #generalized weakness #hypothyroidism #hyponatremia #anasarca The patient looks dry on exam but also has anasarca; her creatinine level is 2.8, it was 1.7 on 11/14/22. I believe her TRINI on CKD is pre-renal. She received 500mL fluid bolus in the ED. Will start NS @ 75mL/hr. Order TSH level Will trend INR levels. Goal INR is 2-3. Continue Coumadin. Start full dose of lovenox. Will need to resume home medications once they've been reconciled. Full code Consistent carb DVT ppx: lovenox
[2022-11-26 08:37] LABS: Basophils % 0.3 % (0.1-2.0); Eosinophils # 0.1 K/mm3 (0.0-0.4); Eosinophils % 0.9 % (0.1-12.0); Hematocrit 32.8 % (37.0-47.0); Hemoglobin 9.6 g/dL (12.2-16.2); Lymphocytes # 1.3 K/mm3 (0.7-4.5); Lymphocytes % 15.1 % (10-50); Mean Corpuscular HGB Conc 29.4 g/dL (31.8-35.4); Mean Corpuscular Hemoglobin 27.1 pg (27.0-31.2); Mean Corpuscular Volume 92.3 fl (81-99); Mean Platelet Volume 8.3 fl (7.4-10.4); Monocytes # 0.5 K/mm3 (0.1-1.0); Monocytes % 5.9 % (1.7-9.3); Neutrophils # 6.8 K/mm3 (1.8-7.8); Neutrophils % 77.7 % (37.0-80.0); Platelet Count 234 K/mm3 (142-424); Red Blood Count 3.56 M/mm3 (4.20-5.40); Red Cell Distribution Width 18.1 % (11.5-17.5); White Blood Count 8.7 K/mm3 (4.8-10.8)
[2022-11-26 08:41] LABS: Chloride 95 mmol/L (98-107)
[2022-11-26 08:42] LABS: Potassium 4.5 mmoL/L (3.5-5.1); Sodium 131 mmol/L (136-145)
[2022-11-26 08:44] LABS: Blood Urea Nitrogen 66 mg/dl (7-17)
[2022-11-26 08:45] LABS: Anion Gap 19.5 mEq/L (5-15); Calcium 8.9 mg/dl (8.4-10.2); Carbon Dioxide 21 mmol/L (22.0-30.0); Creatinine Clearance Estimated 31 mL/min (50-200); Estimated Glomerular Filt Rate 15 ml/min (>60); GFR (African American) 18 ML/MIN (>60); Glucose 148 mg/dl (74-100); INR 1.35 (0.9-1.1); Prothrombin Time 14.3 seconds (10.1-12.5)
[2022-11-26 08:52] LABS: Hemoglobin A1C 10.8 % (4.0-6.0)
[2022-11-26 09:16] LABS: Thyroid Stimulating Hormone 9.73 uIU/mL (0.465-4.68)
--- NOTE | 2022-11-26 09:16 | PC.NURSE ---
courtesy tech note; rounded on pt, pt denied the need to use the restroom or the need for a drink at this time. pt c/o of chest pain, notified nurse. call light within reach, no further requests at this time. Janak Goncalves, SANJAY
--- NOTE | 2022-11-26 10:46 | HMH.PTEV ---
Physical Therapy Evaluation Rehab PT IP Evaluation Start: 11/25/22 17:03 Freq: ONCE Status: Active Protocol: Document 11/26/22 10:41 ALPA (Rec: 11/26/22 10:46 PHOARCADIO [id number]) Subjective/History History History 57 yowf adm to [facility] with TRINI and pleural effusion with generalized weakness. She has hx of COPD, CKD, uncontrolled DM-II, recent MV replacement. She reports she lives with significant other, no steps to enter the home, uses a RW for ambulation at all times at baseline. Subjective Subjective Pt reports feeling a little stronger today, but c/o pain in my tailbone, and SOA with exertion. Rehab PT IP Eval Objective Appearance Patient Behavior Appropriate Patient Orientation Person,Place,Time Difficulty following instructions none Speech Pattern Clear Ambulation Patient Able to Ambulate Yes Ambulation Observation IP General Gait Pattern Observation Wide Based Gait Ambulation Distance (feet) 20 Ambulation Assistive Device Rolling Walker Ambulation Ability Contact Guard/Hand Hold Balance Ability to Arise Able, uses arms to help Sitting Balance Steady, safe Standing Balance Steady, wide stance Dynamic Sitting Balance Ability Good Dynamic Standing Balance Ability Fair Transfers Bed Transfer Ability Contact Guard/Hand Hold Chair Transfer Ability Contact Guard/Hand Hold Sit to Stand Bed Transfer Ability Contact Guard/Hand Hold Sit to Stand Chair Transfer Ability Contact Guard/Hand Hold ROM All Extremities PT ROM Status WFL MMT All Extremities PT MMT WFL Rehab PT IP prob,goals,plan Problems Date of Evaluation: 11/26/22 PT IP Problems Bed Mobility,Transfers,Gait Rehab Potential Rehab Potential Good Plan PT Intervention Plan Bed Mobility,Transfers,Gait, Therapeutic Exercise PT Plan Frequency Daily Duration LOS Discharge Goals Bed Transfer Ability Supervision/Stand by Sit to Stand Chair Transfer Ability Supervision/Stand by Ambulation Assistive Device Rolling Walker Ambulation Distance (feet) 30 Discharge Plan PT Discharge Plan Pt is most appropriate for rehab placement at this time once medically st
[2022-11-26 12:15] LABS: POC Glucose,Bedside 234 (70-110)
--- NOTE | 2022-11-26 12:54 | EXP.DC.SUM ---
General Admission date:: 11/25/22 Discharge date: 11/26/22 HPI HPI HPI: Ms. De La Fuente is a 57 year old female with a past medical history of mitral valve replacement with a bioprosthetic valve, atrial fibrillation on coumadin, mild nonocclusive CAD (per [facility] in 08/2022), CHF, COPD, CKD, degenerative disc disease, GERD, IBS, hypothyroidism, type 2 diabetes mellitus, normocytic anemia presents because of generalized weakness. She states that she has been eating and drinking well but today has a creatinine level of 2.8, it was 1.7 on 11/14/22. She has been taking a diuretic. She normally ambulates with a walker but since last night has been too weak to get out of bed. She also states she has had some dyspnea. She denies chest pain, cough, fever, abdominal pain, diarrhea and dysuria. Her [employer] is Dr. Levi. Initial vitals: BP 98/62 - P 76 - RR 20 - T 98.4 degrees F - SpO2 96% RA Initial workup: INR 1.3, CMP with na 129, BUN 68, cr 2.8 (Cr 1.7 on 11/14/22), ProBNP 3420, albumin 1.[address]- Moderate right effusion with right lower lobe consolidation. Hazy ground-glass opacities bilateral lungs. abd/pel ct- Changes of cirrhosis and portal hypertension with splenomegaly and varices.? ? Body wall edema.? ? No acute process. Head ct - no acute intracranial process c-spine ct - no acute process pelvis xr - no acute bony abnormality echo from 11/11/22 - 1.? Biatrial enlargement, normal left ventricular size, estimated ejection fraction 55% with no regional wall motion abnormality, diastolic parameters are inconclusive. 2.? Mildly enlarged right ventricle with normal contractility. 3.? Bioprosthetic valve in the mitral position, mean gradient across the valve is 8 mmHg, however the valve area is 3.7 cm??? by pressure half-time, there is no significant mitral regurgitation.? The increased velocities across the mitral valve is likely secondary to increased left atrial volume. 4.? Mild tricuspid regurgitation. 5.? No significant pericardial effusion noted. 6.? Inferior vena cava is poorly visualized. Hospital Course Hospital Course Hospital Course: The patient was given 500mL fluid bolus in the ED and then NS @ 75mL/hr x 1 liter. The following morning the patient's creatinine level worsened from 2.8 to 3.2. Her K is 4.5 and CO2 is 21. She denies having had taken anything for her chronic pain except Percocet. She reports that she had been taking her medications as prescribed including Bumex 1mg po daily and torsemide 20mg BID. A mei catheter was placed in the ER and she had approximately 300mL urine output over 12 hours. The patient will be transferring to [facility] for Nephrology services. Prior to discharge at 10AM the patient was give IV lasix 40mg. #TRINI on CKD #subtherapeutic INR #mitral valve replacement with bioprosthetic valve #atrial fibrillation #type 2 dm, uncontrolled, a1c 10.8 #generalized weakness #hypothyroidism, uncontrolled, TSH was 9.73 #hyponatremia, Na 129->131 #anasarca Exam Data for Last 24 hours Vital signs and Labs for Last 24 Hours: Temp Pulse Resp BP Pulse Ox 97.9 F 107 H 20 116/74 99 11/26/22 12:00 11/26/22 12:00 11/26/22 12:00 11/26/22 12:00 11/26/22 12:00 Laboratory Results - last 24 hr 11/25/22 14:15: Urine Color Yellow, Urine Appearance Clear, Urine pH 5.5, Ur Specific [place] 1.025, Urine Protein 1+, Urine Glucose (UA) 1+, Urine Ketones Negative, Urine Blood Negative, Urine Nitrate Negative, Urine Bilirubin 1+ A, Urine Urobilinogen 0.2, Ur Leukocyte Esterase Negative, Urine RBC None, Urine WBC None, Ur Squamous Epith Cells Occasional, Urine Bacteria Trace 11/25/22 14:15: WBC 6.5, RBC 3.29 L, Hgb 8.8 L, Hct 30.4 L, MCV 92.4, MCH 26.6 L, MCHC 28.8 L, RDW 17.6 H, Plt Count 230, MPV 7.5, Neut % (Auto) 69.7, Lymph % (Auto) 23.8, [place] % (Auto) 5.0, Eos % (Auto) 1.0, Baso % (Auto) 0.6, Neut # (Auto) 4.5, Lymph # (Auto) 1.6, [place] # (Auto) 0.3, Eos # (Auto) 0.1, Baso # (Auto) 0
--- NOTE | 2022-11-26 14:48 | PC.NURSE ---
pt has been discahrged from the facility. report called to Lou @ [facility]. Daughter @ bedside with pt. all belongings sent with pt.
== END 2022-11-26 14:40 | disposition short-term general hospital (02) | DRG 682 ==
LOC: ER 17:32 → 2ND 17:35
PROVIDERS: Admitting Provider Internal Medicine; Emergency Provider Emergency Medicine; PCP Family Medicine; Visit Provider Internal Medicine
DX: N17.9 Acute kidney failure, unspecified (principal); I50.33 Acute on chronic diastolic (congestive) heart failure; E87.1 Hypo-osmolality and hyponatremia; K59.00 Constipation, unspecified; N18.9 Chronic kidney disease, unspecified; I25.10 Atherosclerotic heart disease of native coronary artery without angina pectoris; I50.9 Heart failure, unspecified; K21.9 Gastro-esophageal reflux disease without esophagitis; M19.90 Unspecified osteoarthritis, unspecified site; I48.0 Paroxysmal atrial fibrillation; I08.1 Rheumatic disorders of both mitral and tricuspid valves; J43.9 Emphysema, unspecified; F17.210 Nicotine dependence, cigarettes, uncomplicated; Z95.2 Presence of prosthetic heart valve; E11.65 Type 2 diabetes mellitus with hyperglycemia; Z79.4 Long term (current) use of insulin; R79.1 Abnormal coagulation profile; D64.9 Anemia, unspecified; E11.22 Type 2 diabetes mellitus with diabetic chronic kidney disease; Z79.01 Long term (current) use of anticoagulants; R60.1 Generalized edema
CPT/HCPCS: 36415; 70450; 71045; 71250; 72125; 72170; 74176; 80048; 80053; 81001; 82962; 83036; 83690; 83735; 83880; 84443; 84484; 85025; 85610; 85730; 87086; 93005; 94640; 99285; C9803; G0378; J2405; U0003; U0005

== ENCOUNTER 2023-03-06 09:24 | Emergency (ER) | payer MEDICARE, MEDICAID, SELFPAY ==
[2023-03-06] VITALS (18 sets, daily range): BP systolic 80–155; BP diastolic 31–78; PULSE 73–89; RESP 20; TEMP 36.8; O2SAT 94–100; BMI 36.6
--- NOTE | 2023-03-06 09:34 | PC.NURSE ---
called for medical records from [facility]
--- NOTE | 2023-03-06 09:36 | HMH.EDGENADL ---
Discharge Plan Disposition Patient Disposition: Xfer Short-Term Hosp Condition: Serious Chief Complaint: Shortness of Breath/Dyspnea Prescriptions Prescriptions: No Action calcitriol 0.5 mcg capsule 0.5 mcg PO DAILY Trulance 3 mg tablet 3 mg PO DAILY rosuvastatin 20 mg tablet 20 mg PO DAILY Hold Instructions: Resume on 11/24/23. metformin 500 mg tablet extended release 24 hr 500 mg PO DAILY Hold Instructions: Resume on 11/24/23. famotidine 40 mg tablet 40 mg PO BID Hold Instructions: Resume on 11/22/24. Nurtec ODT 75 mg tablet,disintegrating 75 mg PO Q OTHER DAY PRN (Reason: Migraine Headache) dapagliflozin propanediol 10 mg tablet 10 mg PO DAILY Hold Instructions: Resume on 11/23/23. albuterol sulfate 90 mcg/actuation HFA aerosol inhaler 2 puff inhalation Q4HP PRN (Reason: Shortness Of Breath) oxycodone-acetaminophen [Percocet] 5-325 mg tablet 1 tab PO TIDP PRN (Reason: Moderate Pain (Scale Score 5-6)) rotigotine 2 mg/24 hour patch 24 hour 2 mg transdermal DAILY MDD 2 mg Qty: 30 3RF Rx Instructions: As directed pantoprazole 40 mg tablet,delayed release (DR/EC) 40 mg PO DAILY albuterol sulfate 2.5 mg /3 mL (0.083 %) solution for nebulization 2.5 mg inhalation Q4HP PRN (Reason: Shortness Of Breath) insulin lispro 100 unit/mL insulin pen 30 unit SQ TID insulin glargine [Basaglar KwikPen U-100 Insulin] 100 unit/mL (3 mL) insulin pen 40 unit SQ DAILY spironolactone [Aldactone] 25 mg tablet 25 mg PO DAILY Hold Instructions: Resume on 11/24/23. Anoro Ellipta 62.5-25 mcg/actuation blister with device 1 inh inhalation DAILY duloxetine 60 mg Capsule,Delayed Release(Dr/Ec) 60 mg PO DAILY Hold Instructions: Resume on 11/24/23. torsemide 20 mg tablet 20 mg PO BID Hold Instructions: Resume on 11/24/23. Patient Comments: TAKE 1 TABLET BY MOUTH 2 TIMES DAILY. tizanidine 4 mg tablet 4 mg PO TID Hold Instructions: Resume on 11/24/23. imipramine HCl 25 mg tablet 75 mg PO HS Patient Comments: TAKE 3 TABLETS BY MOUTH AT BEDTIME. gabapentin 800 mg tablet 800 mg PO TID Hold Instructions: Resume on 11/25/23. Patient Comments: TAKE 1 TABLET BY MOUTH 4 TIMES DAILY. warfarin 4 mg tablet 4 mg PO DAILY Patient Comments: TAKE 1 TABLET BY MOUTH ONCE DAILY ferrous sulfate [Feosol] 325 mg (65 mg iron) tablet 325 mg PO TID Hold Instructions: Resume on 11/24/23. bumetanide 1 mg tablet 1 mg PO DAILY Hold Instructions: Resume on 11/25/23. Clinical Impressions Clinical Impression: Volume overload, Dependence on intermittent renal dialysis, Pleural effusion Stand Alone Forms Stand Alone Forms: Transfer Record - ED Discharge ED Provider: Alonzo Zuniga General Adult HPI General Chief complaint: Shortness of Breath/Dyspnea Stated complaint: soa Time Seen by Provider: 03/06/23 09:30 History of Present Illness HPI narrative: Patient is a 57-year-old female with insulin-dependent diabetes, anuric CKD on dialysis Monday, heart failure, hypertension who presents to the emergency department for evaluation of shortness of breath. Onset has been acute, over the last 24 to 48 hours. Patient has had progressive dyspnea causing her to call 911 and present here for continued evaluation. Patient states that she has been in and out of the hospital multiple times requiring dialysis over the last month. Patient states she has been compliant with dialysis. Due to progressive symptoms she presents here for continued evaluation. In route patient was placed on 4 L nasal cannula to maintain oxygen saturations greater than 90%. Patient has had an associated nonproductive cough. When asked if she has had fluid taken off of her abdomen she says a couple times . She has diffuse abdominal discomfort but no focal pain.
--- NOTE | 2023-03-06 09:38 | XR_ITS ---
FINAL REPORT CLINICAL HISTORY: soa, dialysis COMPARISON: 11/25/2022 FINDINGS: A portable view of the chest was obtained. Cardiac and mediastinal silhouettes are within normal limits. There is interval placement of a right IJ dual-lumen catheter with the tip not well visualized. Tip is likely within the right atrium. There is a right base opacity and right pleural effusion which may represent atelectasis or pneumonia. This has increased from prior exam. IMPRESSION: Interval placement of right IJ dual-lumen catheter with tip likely in the right atrium. Right base opacity and right pleural effusion, increased from prior exam. Reviewed, Interpreted and Dictated by Tanya Goff MD Transcribed by Madeline Madrigal Authenticated and [facility]
[2023-03-06 09:51] LABS: VBG HCO3 21.4 mmol/L (23-30); VBG Oxygen Saturation 68.2 % (50-70); VBG PCO2 38.4 mmol/L (35-51); VBG PH 7.36 mmol/L (7.31-7.41); VBG Total CO2 22.6 mmol/L (23-27)
[2023-03-06 09:58] LABS: Basophils % 0.2 % (0.1-2.0); Eosinophils # 0.1 K/mm3 (0.0-0.4); Eosinophils % 2.2 % (0.1-12.0); Hematocrit 30.5 % (37.0-47.0); Hemoglobin 9.2 g/dL (12.2-16.2); Lymphocytes # 0.7 K/mm3 (0.7-4.5); Lymphocytes % 14.8 % (10-50); Mean Corpuscular HGB Conc 30.1 g/dL (31.8-35.4); Mean Corpuscular Hemoglobin 27.3 pg (27.0-31.2); Mean Corpuscular Volume 90.9 fl (81-99); Mean Platelet Volume 9.8 fl (7.4-10.4); Monocytes # 0.4 K/mm3 (0.1-1.0); Monocytes % 8.7 % (1.7-9.3); Neutrophils # 3.7 K/mm3 (1.8-7.8); Neutrophils % 74.2 % (37.0-80.0); Platelet Count 81 K/mm3 (142-424); Red Blood Count 3.36 M/mm3 (4.20-5.40); Red Cell Distribution Width 18.3 % (11.5-17.5)
[2023-03-06 10:06] LABS: Alanine Aminotransferase 21 U/L (12-78); Albumin Level 4.2 g/dl (3.5-5.0); Albumin/Globulin Ratio 1.1 (1.1-1.8); Alkaline Phosphatase 119 U/L (38-126); Anion Gap 15.7 mEq/L (5-15); Aspartate Amino Transferase 32 U/L (14-36); Bilirubin,Total 0.8 mg/dl (0.2-1.3); Blood Urea Nitrogen 28 mg/dl (7-17); Calcium 8.9 mg/dl (8.4-10.2); Carbon Dioxide 28 mmol/L (22.0-30.0); Chloride 91 mmol/L (98-107); Estimated Glomerular Filt Rate 11 ml/min (>60); GFR (African American) 13 ML/MIN (>60); Globulin 3.7 g/dL (1.3-3.2); Glucose 131 mg/dl (74-100); Potassium 3.7 mmoL/L (3.5-5.1); Sodium 131 mmol/L (136-145); Total Protein,Serum 7.9 g/dl (6.3-8.2)
[2023-03-06 10:14] LABS: NT Pro Brain Natriuretic Pep. 11200 pg/mL (0-125)
[2023-03-06 10:19] LABS: Troponin I < 0.01 ng/ml (0.00-0.034)
--- NOTE | 2023-03-06 10:21 | PC.NURSE ---
Ledy Nam checked on pt, repositioned bed for pt.
--- NOTE | 2023-03-06 10:28 | ECG_ITS ---
APPROVED REPORT Exam: Resting ECG HR:75 bpm ECG Measurements Heart Rate 75 AXES GA 188 P 72 QRSd 91 QRS 38 QT 393 T 12 QTc 421 Conclusion SINUS RHYTHM LOW QRS VOLTAGE [QRS DEFLECTION < 0.5/1.0 mV IN LIMB/CHEST LEADS] POSSIBLE ANTERIOR MYOCARDIAL INFARCTION , PROBABLY OLD [30 ms Q WAVE IN V3/V4, OR R < 0.2 mV IN V4] ABNORMAL ECG UNCONFIRMED REPORT Electronically signed by : Juan J Wynn MD 03/08/2023 21:27:24
--- NOTE | 2023-03-06 10:36 | PC.NURSE ---
speaking to [facility] for transfer
--- NOTE | 2023-03-06 10:57 | PC.NURSE ---
Dr Sharpe, nephrology accepted pt. awaiting call from Dr dAams, hospitalist to finalize transfer.
[2023-03-06 11:26] LABS: Source, Body Fld. Peritoneal Fluid
--- NOTE | 2023-03-06 11:27 | PC.NURSE ---
rounded on pt she was sleeping in bed, call light at bs
[2023-03-06 11:28] LABS: Appearance,Body Fld. Hazy; TNC,Body Fluid 242 cells/uL (< 1000); Volume,Body Fld. 20 mL
[2023-03-06 11:29] LABS: RBC,Body Fluid 11 cells/uL (< 10 X 10^3)
--- NOTE | 2023-03-06 11:50 | PC.NURSE ---
calling [facility] for update on hospitalist availability
--- NOTE | 2023-03-06 11:56 | PC.NURSE ---
Dr Adams to call back
--- NOTE | 2023-03-06 12:25 | PC.NURSE ---
pt is sleeping in bed, call light at bs
[2023-03-06 12:39] LABS: Mononuclear WBCs,Body Fluid 5 %; Polynuclear WBC,Body Fluid 95 %
--- NOTE | 2023-03-06 12:40 | PC.NURSE ---
pt accepted to [facility] by
--- NOTE | 2023-03-06 12:53 | PC.NURSE ---
renal tray provided to pt
[2023-03-06 13:29] LABS: Troponin I < 0.01 ng/ml (0.00-0.034)
--- NOTE | 2023-03-06 13:30 | PC.NURSE ---
pt called out needing purse nothing else at this time needed, call light at bs
--- NOTE | 2023-03-06 14:56 | PC.NURSE ---
rounded on pt nothing needed at this time stated she was nausea feeling told dr. thompson and nurses, call light at bs
--- NOTE | 2023-03-06 15:43 | PC.NURSE ---
report called to [facility] receiving RN
== END 2023-03-06 16:45 | disposition short-term general hospital (02) ==
PROVIDERS: Emergency Provider Emergency Medicine; PCP Family Medicine
DX: E87.70 Fluid overload, unspecified (principal); J90 Pleural effusion, not elsewhere classified; E11.22 Type 2 diabetes mellitus with diabetic chronic kidney disease; I13.2 Hypertensive heart and chronic kidney disease with heart failure and with stage 5 chronic kidney disease, or end stage renal disease; N18.6 End stage renal disease; I25.118 Atherosclerotic heart disease of native coronary artery with other forms of angina pectoris; E03.9 Hypothyroidism, unspecified; K21.9 Gastro-esophageal reflux disease without esophagitis; I48.0 Paroxysmal atrial fibrillation; M06.9 Rheumatoid arthritis, unspecified; Z87.891 Personal history of nicotine dependence
CPT/HCPCS: 36415; 71045; 80053; 82803; 83880; 84484; 85025; 87070; 87205; 89051; 93005; 96365; 96375; 99285; 99291; J0696; J2405

== ENCOUNTER 2023-03-26 11:46 | Emergency (ER) | payer MEDICARE, MEDICAID, SELFPAY ==
[2023-03-26 12:10] VITALS: BP 81/51; PULSE 85; RESP 18; TEMP 37; O2SAT 97; BMI 34.5
--- NOTE | 2023-03-26 12:40 | EXP.UTC ---
Discharge Plan Disposition Patient Disposition: Home, Self-Care Condition: Good Prescriptions Prescriptions: New nystatin 100,000 unit/mL suspension 6 ml buccal QID 10 Days Qty: 240 0RF Rx Instructions: Place 6ml in mouth swish and retain in mouth as long as possible and spit out No Action calcitriol 0.5 mcg capsule 0.5 mcg PO DAILY Trulance 3 mg tablet 3 mg PO DAILY rosuvastatin 20 mg tablet 20 mg PO DAILY Hold Instructions: Resume on 11/24/23. metformin 500 mg tablet extended release 24 hr 500 mg PO DAILY Hold Instructions: Resume on 11/24/23. famotidine 40 mg tablet 40 mg PO BID Hold Instructions: Resume on 11/22/24. Nurtec ODT 75 mg tablet,disintegrating 75 mg PO Q OTHER DAY PRN (Reason: Migraine Headache) dapagliflozin propanediol 10 mg tablet 10 mg PO DAILY Hold Instructions: Resume on 11/23/23. albuterol sulfate 90 mcg/actuation HFA aerosol inhaler 2 puff inhalation Q4HP PRN (Reason: Shortness Of Breath) oxycodone-acetaminophen [Percocet] 5-325 mg tablet 1 tab PO TIDP PRN (Reason: Moderate Pain (Scale Score 5-6)) rotigotine 2 mg/24 hour patch 24 hour 2 mg transdermal DAILY MDD 2 mg Qty: 30 3RF Rx Instructions: As directed pantoprazole 40 mg tablet,delayed release (DR/EC) 40 mg PO DAILY albuterol sulfate 2.5 mg /3 mL (0.083 %) solution for nebulization 2.5 mg inhalation Q4HP PRN (Reason: Shortness Of Breath) insulin lispro 100 unit/mL insulin pen 30 unit SQ TID insulin glargine [Basaglar KwikPen U-100 Insulin] 100 unit/mL (3 mL) insulin pen 40 unit SQ DAILY spironolactone [Aldactone] 25 mg tablet 25 mg PO DAILY Hold Instructions: Resume on 11/24/23. Anoro Ellipta 62.5-25 mcg/actuation blister with device 1 inh inhalation DAILY duloxetine 60 mg Capsule,Delayed Release(Dr/Ec) 60 mg PO DAILY Hold Instructions: Resume on 11/24/23. torsemide 20 mg tablet 20 mg PO BID Hold Instructions: Resume on 11/24/23. Patient Comments: TAKE 1 TABLET BY MOUTH 2 TIMES DAILY. tizanidine 4 mg tablet 4 mg PO TID Hold Instructions: Resume on 11/24/23. imipramine HCl 25 mg tablet 75 mg PO HS Patient Comments: TAKE 3 TABLETS BY MOUTH AT BEDTIME. gabapentin 800 mg tablet 800 mg PO TID Hold Instructions: Resume on 11/25/23. Patient Comments: TAKE 1 TABLET BY MOUTH 4 TIMES DAILY. warfarin 4 mg tablet 4 mg PO DAILY Patient Comments: TAKE 1 TABLET BY MOUTH ONCE DAILY ferrous sulfate [Feosol] 325 mg (65 mg iron) tablet 325 mg PO TID Hold Instructions: Resume on 11/24/23. bumetanide 1 mg tablet 1 mg PO DAILY Hold Instructions: Resume on 11/25/23. Referrals Follow up/Referrals: Adam Fried MD [Primary Care Provider] - See instructions Activity Restrictions/Add. Instructions Additional Instructions/Restrictions: Follow up with your Family Doctor if no improvement or any worsening of symptoms Straight to ER if any life threatening symptoms Make sure to watch blood pressure and go straight to ER if no improvement Return if needed Clinical Impressions Clinical Impression: Candidiasis, mouth Instructions Patient Instructions: Thrush-Adult, DI for Thrush, Nystatin Discharge ED Provider: Lindsay Frank [facility] General Stated complaint: sore throat, rash in mouth Mode of Arrival: Ambulatory Source of Information: Patient Limitations: No Limitations Time Seen by Provider: 03/26/23 12:40 Description of Symptoms (Recalled from Triage Doc. by RN): PATIENT C/O POSSIBLE THRUSH TO MOUTH X 2 DAYS HEENT Symptoms (Recalled from RN notes): Yes Resp Symptoms (Recalled from RN notes): No Skin Symptoms (Recalled from RN notes): No MS Symptoms (Recalled from RN notes): No Functional Status (Recalled from RN notes): WNL History of Present Illness Provider Complaint: Patient states that she thinks she m
[2023-03-26 12:56] VITALS: BP 92/49; PULSE 85; RESP 18; TEMP 37; O2SAT 97
== END 2023-03-26 13:00 | disposition home or self-care (01) ==
PROVIDERS: Emergency Provider Nurse Practitioner; PCP Family Medicine
DX: B37.0 Candidal stomatitis (principal); I95.89 Other hypotension; D63.1 Anemia in chronic kidney disease; N18.9 Chronic kidney disease, unspecified; G47.33 Obstructive sleep apnea (adult) (pediatric); G25.81 Restless legs syndrome; E11.42 Type 2 diabetes mellitus with diabetic polyneuropathy; I11.0 Hypertensive heart disease with heart failure; I50.9 Heart failure, unspecified; J44.9 Chronic obstructive pulmonary disease, unspecified; E78.5 Hyperlipidemia, unspecified; I25.10 Atherosclerotic heart disease of native coronary artery without angina pectoris; E55.9 Vitamin D deficiency, unspecified; D51.9 Vitamin B12 deficiency anemia, unspecified; Z79.4 Long term (current) use of insulin; Z79.84 Long term (current) use of oral hypoglycemic drugs
CPT/HCPCS: 99212; 99214; G0463